=== PATIENT | male | born 1965 | race Caucasian/White ===

== ENCOUNTER 2021-12-06 03:19 | Inpatient (IN) | payer OTHER, SELFPAY ==
[2021-12-06] VITALS (10 sets, daily range): BP systolic 106–138; BP diastolic 56–87; PULSE 74–88; RESP 16–22; TEMP 36.5–36.8; O2SAT 97–100; BMI 45.0; BMI 45.4
--- NOTE | 2021-12-06 03:33 | ED_ITS ---
HPI - General Adult General Time Seen by Provider: 03:34 Date Seen: 12/06/21 Chief complaint: Post Op Complication Stated complaint: post op pain,constipation Time Seen by Provider: 12/06/21 03:33 Source: patient, EMS, RN notes reviewed and old records reviewed Mode of arrival: EMS Limitations: no limitations History of Present Illness HPI narrative: Patient is a very pleasant 56-year-old gentleman with a history of bipolar disorder, morbid obesity, postop day 2. Left hip replacement who comes to the emergency room via EMS from his skilled nursing in [place]. Patient notes that he had his hip replaced on December 04. He was discharged yesterday December 05 to his skilled nursing. He notes that yesterday before midnight he developed a fever up to 101.5. He states that he put ice on his head and has brought his fever down. He notes that he is mildly nauseated and has not been able to have a bowel movement in 3 days. Also notes what he thought was some blood in his urinary stream earlier this evening. He denies dysuria or hematuria. Was intubated in notes that he has a mild cough but it is not productive. He notes that he cannot take a lot of narcotics as he gets itchy especially from morphine but he has been on narcotics at home. He is requesting pain medication and it would be happy to accept Toradol. Additional complaints include feeling like he is manic. He states he has not slept for 3 days. He is adamant that he has never been violent but feels like he is starting to ?ramp up?. He states that his family independence case manager is trying to find him a crisis bed tomorrow. He also notes that he has had a problem with a sodium but is unable to elaborate. He is requesting water. Patient currently resides in a skilled nursing in [place]. shelter staff note that he is not doing things for himself like he is supposed to. Patient is receptive to going to shelter on a temporary basis. Related Data Home Medications Medication Instructions Recorded Confirmed acetaminophen 325 mg tablet 325 mg PO TID 12/06/21 12/06/21 aripiprazole 15 mg tablet 15 mg PO DAILY 12/06/21 12/06/21 ascorbic acid (vitamin C) 1,000 mg 1 g PO DAILY 12/06/21 12/06/21 capsule aspirin 325 mg tablet,delayed 325 mg PO DAILY 12/06/21 12/06/21 release buspirone 5 mg tablet 5 mg PO TID 12/06/21 12/06/21 carbamazepine 200 mg tablet 200 mg PO BID 12/06/21 12/06/21 celecoxib 200 mg capsule 200 mg PO DAILY 12/06/21 cholecalciferol (vitamin D3) 125 125 mcg PO DAILY 12/06/21 12/06/21 mcg (5,000 unit) capsule docusate sodium 100 mg capsule 100 mg PO BID 12/06/21 12/06/21 (Col-Rite) famotidine 20 mg tablet 20 mg PO Q12H 12/06/21 12/06/21 metoprolol tartrate 50 mg tablet 50 mg PO BID 12/06/21 12/06/21 multivitamin with iron-mineral 1 tab PO DAILY 12/06/21 12/06/21 olanzapine 10 mg tablet mg 12/06/21 olanzapine 5 mg disintegrating 5 mg PO HS 12/06/21 12/06/21 tablet omega 1-jfm-dwu-fish oil 1,200 mg cap PO DAILY 12/06/21 (144 mg-216 mg) capsule (Fish Oil) omeprazole 20 mg capsule,delayed 20 mg PO DAILY 12/06/21 12/06/21 release oxycodone 5 mg tablet 5 mg PO Q4H PRN 12/06/21 12/06/21 polyethylene glycol 3350 17 17 g PO DAILY 12/06/21 12/06/21 gram/dose oral powder psyllium husk (with sugar) 3 1 tbsp PO DAILY 12/06/21 12/06/21 gram/7 gram oral powder (Metamucil (with sugar)) sennosides 8.6 mg-docusate sodium 1 tab-cap PO BID 12/06/21 12/06/21 50 mg tablet (Senokot-S) tamsulosin 0.4 mg capsule 0.4 mg PO DAILY 12/06/21 12/06/21 Allergies Allergy/AdvReac Type Severity Reaction Status Date / Time lithium Allergy Intermediate Palpitation Verified 12/06/21 04:46 s divalproex sodium AdvReac Intermediate Weight Verified 12/06/21 04:46 [From Depakote] Gain and Excessive Sedation valproic acid AdvReac Intermediate Weight Gain Verified 12/06/21 04:47 morphine AdvReac Mild Itching Verified 12/06/21 04:46 Review of Systems Status of ROS: Reports: 10 or more systems reviewed and unremarkable except as noted in History and below Const: Reports: fever (101.5) and chills Eyes: Denies: change in vision ENMT: Denies: throat pain Cardio: Denies: chest pain, palpitations or shortness of breath with exertion Resp: Reports: cough (Mild and rare); Denies: shortness of breath GI: Reports: abdominal pain, nausea and constipation; Denies: vomiting : Reports: blood in urine (1 occurrence earlier this evening); Denies: painful urination or urinary frequency Musculo: Denies: back pain Integ/Breast: Denies: rash Neuro: Denies: headache Psych: Reports: other (Unable to sleep. Feels like he is manic); Denies: auditory hallucinations or tactile hallucinations Endo: Denies: excessive urination Adiel/Lymph: Denies: easy bruising PFSH PFSH Medical History Anxiety Arthritis of left knee Bipolar affective disorder, currently manic, mild Hip pain, left Internal hemorrhoid, bleeding Molly Obesity, morbid, BMI 50 or higher PAC (premature atrial contraction) Primary hypertension Severe manic bipolar 1 disorder with psychotic behavior Surgical History H/O arthroscopy of left knee H/O arthroscopy of right knee History of tonsillectomy Hx laparoscopic cholecystectomy Status post total hip replacement, left Social History Smoking Status: Never smoker How often do you have a drink containing alcohol: never How often do you have six or more drinks on one occasion: Never AUDIT-C Alcohol total score: 0 Non-prescribed substance use: denies use Exam Const: Vital Signs, click to edit/add: Vital Signs - 24 hr 12/06/21 03:38 12/06/21 04:01 12/06/21 04:59 Temperature 98.2 F 98.2 F 98.0 F Pulse Rate [Right Pulse Oximeter] 79 74 Respiratory Rate 16 16 Blood Pressure [Le ft Upper Arm] 106/59 L 110/70 Pulse Oximetry 97 97 Oxygen Delivery Me thod Room Air Room Air Documenting provider has reviewed patient's vital signs: yes Common normals: no apparent distress and oriented x3 Exam limitations: physical limitations (Morbid obesity) General appearance: cooperative, comfortable and well kempt HENMT: Common normals: normocephalic and external nose normal Head and scalp: normocephalic Face and sinus: normal facial exam Nose: external nose normal Eye: Common normals: PERRL General eye: normal appearance of both eyes Pupil: PERRL Neck & C-Spine: Common normals: full ROM Resp: Common normals: normal respiratory effort, no use of accessory muscles and clear to auscultation bilaterally Effort & inspection: able to speak in complete sentences Auscultation: clear to auscultation bilaterally Cardio: Common normals: regular rate and regular rhythm Rate: regular rate Rhythm: regular rhythm GI: Common normals: soft to palpation Palpation: soft and tender (Mild and distractible) : Common normals: no CVA tenderness Bladder/kidney exam: no CVA tenderness Back & Pelvis: Common normals: no CVA tenderness Extremity: Other: Left hip with dressing intact. Some bruising noted of along the posterior aspect of surgical wound. Vac in place. Neuro: Common normals: oriented x3 Other: No pressured speech, hypersexual speech or unusual behavior. Good eye contact. Psych: Common normals: mental status grossly normal, thought process normal and cooperative Appearance: well kempt Thought process: normal thought process Course Reevaluation(s) Reevaluation #1: At this time patient presents with multiple complaints. First he is 2 days status post left hip replacement. He describes a fever of 1015. No fever here tonight. Chest x-ray without evidence of pneumonia, urinalysis is pending white count is 4.68. Blood cultures were drawn. Second, patient has complaints of manic type behavior. Will administer Zyprexa 5 mg in addition to his previous tablet. Third, patient notes constipation inability to stool. Currently on MiraLax. Laboratory values are currently pending. Vital Signs Vital signs: Initial Vital Signs Temperature 98.2 F 12/06/21 03:38 Temperature Source Temporal Artery Scan 12/06/21 03:38 Pulse Rate 79 12/06/21 03:38 Pulse Rhythm 12/06/21 03:38 Respiratory Rate 16 12/06/21 03:38 Blood Pressure 106/59 L 12/06/21 03:38 Blood Pressure Mean 74 12/06/21 03:38 Blood Pressure Position Sitting 12/06/21 03:38 Pulse Oximetry 97 12/06/21 03:38 Oxygen Delivery Method 12/06/21 03:38 Vital Signs Temperature 98.2 F 12/06/21 03:38 Pulse Rate 79 12/06/21 03:38 Respiratory Rate 16 12/06/21 03:38 Blood Pressure 106/59 L 12/06/21 03:38 Pulse Oximetry 97 12/06/21 03:38 Oxygen Delivery Method 12/06/21 03:38 Temperature 98.0 F 12/06/21 04:59 Pulse Rate 74 12/06/21 04:59 Respiratory Rate 16 12/06/21 04:59 Blood Pressure 110/70 12/06/21 04:59 Pulse Oximetry 97 12/06/21 04:59 Oxygen Delivery Method 12/06/21 04:59 Medical Decision Making MDM Narrative Medical decision making narrative: 1. Hyponatremia-patient has of sodium of 122. This is not listed on his records from [facility]. It does appear that his final sodium prior to discharge is 125. Patient is given 1 L of normal saline at this time. Will need to limit free water intake. 2. Postop day 2. Left hip surgery-patient received Toradol and seems to have had pain relief with this. 3. Fever of unknown origin-fever free here and white count reassuring. However, blood cultures were accomplished. Wound itself is not excessively erythematous or warm to the touch. 4. Constipation-patient has had no stool for 3 days. 5. Disposition-admit to the floor under the care of [facility] hospitalist. Medical Records Medical records reviewed: Yes I reviewed the patient's medical records Lab Data Lab results reviewed: Yes I reviewed the patient's lab results Labs: Lab Results 12/06/21 12/06/21 12/06/21 Range/Units 03:40 03:40 03:40 WBC 4.68 (4.50-11.00) K/uL RBC 2.77 L (4.30-5.90) m/uL Hgb 8.7 L (13.5-17.5) gm/dL Hct 25.0 L (37.0-53.0) % MCV 90 (80-100) fL MCH 31 (26-34) pg MCHC 35 (32-36) gm/dL RDW Coeff of Mamadou 12.7 (11.5-15.5) % Plt Count 128 L (140-440) K/uL Neut % (Auto) 67.8 (42.0-72.0) % Lymph % (Auto) 18.8 L (20-44) % [place] % (Auto) 10.9 (0.0-11.0) % Eos % (Auto) 1.9 (0.0-7.0) % Baso % (Auto) 0.4 (0.0-3.0) % Neut # (Auto) 3.17 (1.7-7.0) K/uL Lymph # (Auto) 0.90 (0.90-2.90) K/uL [place] # (Auto) 0.50 (0.00-0.90) K/UL Eos # (Auto) 0.09 (0.00-0.50) K/uL Baso # (Auto) 0.02 (0.00-0.30) K/uL Abs Immat Gran (auto) 0.01 (0.00-0.30) K/uL Sodium 122 L* (135-149) mmol/L Potassium 4.1 (3.6-5.1) mmol/L Chloride 90 L (96-114) mmol/L Carbon Dioxide 27 (20-32) mmol/L BUN 15 (7-30) mg/dL Creatinine 0.7 (0.5-1.5) mg/dL Estimated Creat Clear 112.79 Estimated GFR 110 ml/min Glucose 107 (60-115) mg/dL Lactate 0.8 (0.5-1.9) mmol/L Calcium 7.7 L (8.4-10.6) mg/dL Magnesium 1.8 (1.5-2.6) mg/dL Total Bilirubin 0.6 (0.1-1.5) mg/dL AST 58 H (12-35) U/L ALT 11 (4-50) U/L Alkaline Phosphatase 51 (40-150) U/L C-Reactive Protein 12.9 H (0.5-1.0) mg/dL Total Protein 5.4 L (6.0-8.3) g/dL Albumin 3.1 L (3.3-5.0) g/dL SARS-CoV-2 (PCR) (Negative) Influenza Type A (PCR) (Negative) Influenza Type B (PCR) (Negative) 12/06/21 Range/Units 03:51 WBC (4.50-11.00) K/uL RBC (4.30-5.90) m/uL Hgb (13.5-17.5) gm/dL Hct (37.0-53.0) % MCV (80-100) fL MCH (26-34) pg MCHC (32-36) gm/dL RDW Coeff of Mamadou (11.5-15.5) % Plt Count (140-440) K/uL Neut % (Auto) (42.0-72.0) % Lymph % (Auto) (20-44) % [place] % (Auto) (0.0-11.0) % Eos % (Auto) (0.0-7.0) % Baso % (Auto) (0.0-3.0) % Neut # (Auto) (1.7-7.0) K/uL Lymph # (Auto) (0.90-2.90) K/uL [place] # (Auto) (0.00-0.90) K/UL Eos # (Auto) (0.00-0.50) K/uL Baso # (Auto) (0.00-0.30) K/uL Abs Immat Gran (auto) (0.00-0.30) K/uL Sodium (135-149) mmol/L Potassium (3.6-5.1) mmol/L Chloride (96-114) mmol/L Carbon Dioxide (20-32) mmol/L BUN (7-30) mg/dL Creatinine (0.5-1.5) mg/dL Estimated Creat Clear Estimated GFR ml/min Glucose (60-115) mg/dL Lactate (0.5-1.9) mmol/L Calcium (8.4-10.6) mg/dL Magnesium (1.5-2.6) mg/dL Total Bilirubin (0.1-1.5) mg/dL AST (12-35) U/L ALT (4-50) U/L Alkaline Phosphatase (40-150) U/L C-Reactive Protein (0.5-1.0) mg/dL Total Protein (6.0-8.3) g/dL Albumin (3.3-5.0) g/dL SARS-CoV-2 (PCR) Negative SARS-CoV-2 (Negative) Influenza Type A (PCR) Negative PCR FLU A (Negative) Influenza Type B (PCR) Negative PCR FLU B (Negative) Imaging Data Chest x-ray: Attestation: I have reviewed the pertinent imaging results. My impression: No evidence of infiltrate Radiologist's impression: No acute findings Abdominal x-ray: Attestation: I have reviewed the pertinent imaging results. My impression: There does appear to be a large amount of stool on x-ray. However, I do not see any evidence of obstructions Radiologist's impression: Concurs
--- NOTE | 2021-12-06 03:43 | CRLHL7_ITS ---
For Patients: As a result of the Cures Act, medical imaging exams and procedure reports are released immediately into your electronic medical record. You may view this report before your referring provider. If you have questions, please contact your health care provider. Indication: No stools for 3 days following surgery Technique: KUB Comparison: No comparison Findings: Left hip arthroplasty. Large amount stool within the colon. No free-air. Bowel gas pattern appears nonobstructive. Dictated by Malissa Myers MD @ 12/06/2021 5:24:30 AM (Electronically Signed)
--- NOTE | 2021-12-06 03:43 | CRLHL7_ITS ---
For Patients: As a result of the Century Cures Act, medical imaging exams and procedure reports are released immediately into your electronic medical record. You may view this report before your referring provider. If you have questions, please contact your health care provider. INDICATION: Cough TECHNIQUE: Single view chest. FINDINGS: The lungs are clear. The heart, mediastinum and pulmonary vessels are of normal size. There is no evidence of pleural disease. Lung apices are not imaged. IMPRESSION: Negative chest. Dictated by Malissa Myers MD @ 12/06/2021 5:22:11 AM (Electronically Signed)
[2021-12-06 03:54] LABS: Lactate* 0.8 mmol/L (0.5-1.9)
[2021-12-06 03:56] LABS: Basophils Absolute Auto 0.02 K/uL (0.00-0.30); Basophils Percent Auto 0.4 % (0.0-3.0); Eosinophils Absolute Auto 0.09 K/uL (0.00-0.50); Eosinophils Percent Auto 1.9 % (0.0-7.0); Hemoglobin* 8.7 gm/dL (13.5-17.5); Immature Granulocytes Abs Auto 0.01 K/uL (0.00-0.30); Lymphocytes Percent Auto 18.8 % (20-44); Mean Corpuscular HGB Conc 35 gm/dL (32-36); Mean Corpuscular Hemoglobin 31 pg (26-34); Mean Corpuscular Volume 90 fL (80-100); Monocytes Percent Auto 10.9 % (0.0-11.0); Neutrophils Absolute Auto 3.17 K/uL (1.7-7.0); Neutrophils Percent Auto 67.8 % (42.0-72.0); Platelet Count* 128 K/uL (140-440); RDW Coefficient of Variation % 12.7 % (11.5-15.5); Red Blood Count 2.77 m/uL (4.30-5.90); White Blood Count* 4.68 K/uL (4.50-11.00)
[2021-12-06] MEDS: KETOROLAC 15 MG/ML inj IVP (04:01)
[2021-12-06 04:02] LABS: Slide Review Reflex No
[2021-12-06 04:09] LABS: Chloride* 90 mmol/L (96-114)
[2021-12-06 04:10] LABS: Albumin* 3.1 g/dL (3.3-5.0)
[2021-12-06 04:11] LABS: Potassium* 4.1 mmol/L (3.6-5.1)
[2021-12-06 04:13] LABS: Alanine Aminotransferase* 11 U/L (4-50); Alkaline Phosphatase* 51 U/L (40-150); Aspartate Amino Transferase* 58 U/L (12-35); Bilirubin Total* 0.6 mg/dL (0.1-1.5); Carbon Dioxide* 27 mmol/L (20-32); Creatinine* 0.7 mg/dL (0.5-1.5); Est. Creatinine Clearance* 112.79; Estimated Glomerular Filt Rate 110 ml/min; Total Protein* 5.4 g/dL (6.0-8.3)
[2021-12-06 04:14] LABS: Blood Urea Nitrogen* 15 mg/dL (7-30); Calcium* 7.7 mg/dL (8.4-10.6); Glucose* 107 mg/dL (60-115); Magnesium* 1.8 mg/dL (1.5-2.6)
[2021-12-06 04:16] LABS: Sodium* 122 mmol/L (135-149)
--- NOTE | 2021-12-06 04:17 | ED.NURSE ---
critical sodium 122, MD Lakhani updated.
[2021-12-06] MEDS: 0.9 % SODIUM CHLORIDE 1000 ml 1,000 ML IV (04:22)
[2021-12-06 04:34] LABS: C Reactive Protein* 12.9 mg/dL (0.5-1.0)
[2021-12-06 04:35] LABS: PCR FLU A Negative PCR FLU A (Negative); PCR FLU B Negative PCR FLU B (Negative)
[2021-12-06 04:37] LABS: SARS PCR* Negative SARS-CoV-2 (Negative)
--- NOTE | 2021-12-06 05:49 | ED.NURSE ---
report to RN on med surg, pt to go to [facility].
[2021-12-06] MEDS: OLANZapine 5 MG TAB.RAPDIS PO ×2 (06:50→20:31)
--- NOTE | 2021-12-06 07:05 | P.CCN_ITS ---
Assessment and Plan Assessment and plan (1) Status post left hip replacement: Status: Acute (2) Hyponatremia: Status: Acute (3) Constipation: Status: Acute (4) Primary hypertension: Status: Acute (5) Bipolar affective disorder, currently manic, mild: Status: Acute Plan [facility] Consultation 56 yo M with bipolar who resides in detention in [place]. He is s/p L hip replacement on Dec 04 at [facility] and was released Dec 05 with self cares back to detention with a wound vac in place for 10 days . DC back to his detention but has not been able to do normal self cares since then and felt unwell with complaints of feeling manic and sleeping for 3 days, fever today to 101.5, hematuria, constipation and cough. Lab notable for Na of 122, cr 0.7, Ca low 7.7. CRP 12.9, covid negative. WBC normal, hgb 8.7 (last one 9.6). He reports he has had sodium trouble in the past as well. He is concerned with timing of his medication maintaining accuracy, hip ice and pain control as well as remedy for his constipation since he does have left sided abdominal discomfort with it. Follows with Dr. Elkins at [facility]. PMH: bipolar disorder, previously on lithium, HLD, HTN, obesity, remote L3 compression fracture. s/p cholecystectomy, hip replacement 12/04/2021. Past family History: stroke Pertinent Social History: no current tobacco or alcohol. Resides as detention and has personal nurse as well as a licensed social worker he follows closely with Exam (performed via interactive video with assistance of bedside nurse): General: alert, cooperative, no acute distress HEENT: oral mucosa pink and moist without erythema Lungs: clear to auscultation bilaterally without crackle or wheeze CV: regular rate and rhythm without loud murmur rub or gallop MSK: left hip with wound vac in place. Neuro: alert, oriented x 3. facial muscles grossly intact Assessment and Plan: 56-year-old male was at the detention with bipolar. He is only a few days. Left hip replacement. Presents with hyponatremia chronic constipation, insomnia and hip pain. Hyponatremia ? follow up Na in 6 hrs is ordered, received NS in the ER. It was suspected may be related to polydipsia vs SIADH. Will get the 6 hr lab prior to deciding on additional fluids vs fluid restriction. . Will need records in regard to baseline Na (recently reported to be 125). Recent left Hip replacement - PT, OT and temp SNF placement. Oxycodone 2.5mg is what he tolerates and that is ordered. SW consult, he is agreeable to SNF stay. Fever ? follow BC and wound. No evidence pneumonia. Obtain UA. Bipolar with possible hypomania ? consider increasing home xyprexa. Have ordered PRN Ativan at night for sleep Constipation ? resume bowel regimen when meds reconciled pharmacy will need to review and correct medications, anticipate will resume home meds. Have ordered one time aspirin, Tylenol and miralax for now but will need AM meds when able Thank you for including [facility] in the patients care. This service is available for further assistance as requested by your care team by calling [phone].
--- NOTE | 2021-12-06 07:58 | PC.NURSE ---
END OF SHIFT NOTE: HYPONATREMIC @122. 2DAY POST-OP LEFT HIP REPLACEMENT. PT C/O CONSTIPATION. PT BIPOLAR AND ANXIOUS WITH EXCESSIVE RAPID SPEECH. PT STATES THE USE OF WALKER AT [facility]. DENIES CP, SOB, N/V. PT RATES LEFT HIP PAIN 11/13. VSS ON RA; AFEBRILE. LSCTA. WOUND VAC TO LEFT HIP. PT PIVOT TRANSFERRED TO [facility].
[2021-12-06] MEDS: polyethylene glycoL 3350 17 GM PACK PO (09:00)
--- NOTE | 2021-12-06 09:03 | P.IMHP_ITS ---
Hospitalist- H&P: HPI History of Present Illness Time Seen by Provider: 09:30 Date Seen: 12/06/21 Chief complaint: post op pain,constipation Narrative: Aguila Mcclain is a 56 year old male with history of bipolar disorder and anxiety who underwent a left total hip arthroplasty at [facility] on 12/04/2021, was sent home the next day, and developed fever, insomnia, racing thoughts, and worsening left hip pain. He tells me that he is very regimented about his medications and daily routine which help him to stay mentally healthy. This surgery was disruptive to that and he did not get all of his usual medications at the right times. As a result he tells me that he has had recent thoughts since after surgery and has not slept at all for 4 nights. He also developed a fever to 101.5? F last night. These concerns brought him to the emergency department from the longterm where he lives. He felt that his left hip felt hot last night also and he has been trying to ice it. He says he has not had a bowel movement in 4 days. He also notes that he had very low urine output after surgery, and it is just now starting to get back to normal. He has a wound VAC in place on his left hip from an anterior approach. He tells me that he did not know that he was going to have a wound VAC before surgery, but woke up with it. He does not recall being told the reason why he has a wound VAC instead of a closed wound, but notes that they did give him instructions about it and he is supposed to have it for about 10 days. He was surprised to have of wound VAC because his mother and a friend also had there hips placed at that same facility and did not have wound vacs afterwards. He does note that he has a history of being more obese than he is even currently and lost about 125 lb over the last year in order to be able to go through this surgery. With regards to the racing thoughts, he tells me that he gets this sometimes when he gets off his usual schedule or has anxiety about something stressful. For the most part he notes that his bipolar has been well controlled. He was hoping to contact his psychiatrist's office today to get some advice about the racing thoughts and insomnia. He is agreeable to do a DEC assessment here as well. He made it a point to tell me that he has no suicidal thoughts or thoughts of self-harm and has never been violent. Review of Systems Status of ROS: Reports: 10 or more systems reviewed and unremarkable except as noted in History and below [facility] Medical History (Updated 12/06/21 @ 12:18 by Sigrid Garcia MD) Anxiety Arthritis of left knee Bipolar affective disorder, currently manic, mild Chronic back pain Gout Hip pain, left Internal hemorrhoid, bleeding Molly Obesity, morbid, BMI 50 or higher PAC (premature atrial contraction) Primary hypertension Severe manic bipolar 1 disorder with psychotic behavior Surgical History H/O arthroscopy of left knee H/O arthroscopy of right knee History of tonsillectomy Hx laparoscopic cholecystectomy Status post total hip replacement, left Social History (Updated 12/06/21 @ 12:04 by Sigrid Garcia MD) Narrative: Has been living at a longterm in [place]. He is a lifelong nonsmoker, denies alcohol or recreational drug use. Wishes to be a full code. Highest level of school completed/degree received: high school graduate Smoking Status: Never smoker How often do you have a drink containing alcohol: never How often do you have six or more drinks on one occasion: Never AUDIT-C Alcohol total score: 0 Non-prescribed substance use: denies use Caffeine: No service: No Meds Home Medications and Allergies Home Medications Medication Instructions Recorded Confirmed Type acetaminophen 325 mg tablet 975 mg PO TID 12/06/21 12/06/21 History aripiprazole 15 mg tablet 15 mg PO DAILY 12/06/21 12/06/21 History ascorbic acid (vitamin C) 1,000 mg 1 g PO DAILY 12/06/21 12/06/21 History capsule aspirin 325 mg tablet,delayed 325 mg PO DAILY 12/06/21 12/06/21 History release buspirone 5 mg tablet 5 mg PO TID 12/06/21 12/06/21 History carbamazepine 200 mg tablet 400 mg PO BID 12/06/21 12/06/21 History celecoxib 200 mg capsule 200 mg PO DAILY 12/06/21 12/06/21 History cholecalciferol (vitamin D3) 125 125 mcg PO DAILY 12/06/21 12/06/21 History mcg (5,000 unit) capsule docusate sodium 100 mg capsule 100 mg PO BID 12/06/21 12/06/21 History (Col-Rite) famotidine 20 mg tablet 20 mg PO Q12H 12/06/21 12/06/21 History metoprolol tartrate 50 mg tablet 50 mg PO BID 12/06/21 12/06/21 History multivitamin with iron-mineral 1 tab PO DAILY 12/06/21 12/06/21 History olanzapine 5 mg disintegrating 5 mg PO HS 12/06/21 12/06/21 History tablet omega 3-mem-pde-fish oil 1,200 mg 1 cap PO DAILY 12/06/21 12/06/21 History (144 mg-216 mg) capsule (Fish Oil) omeprazole 20 mg capsule,delayed 20 mg PO DAILY 12/06/21 12/06/21 History release oxycodone 5 mg tablet 5 mg PO Q4H PRN 12/06/21 12/06/21 History polyethylene glycol 3350 17 17 g PO DAILY 12/06/21 12/06/21 History gram/dose oral powder psyllium husk (with sugar) 3 1 tbsp PO DAILY 12/06/21 12/06/21 History gram/7 gram oral powder (Metamucil (with sugar)) sennosides 8.6 mg-docusate sodium 1 tab-cap PO BID 12/06/21 12/06/21 History 50 mg tablet (Senokot-S) tamsulosin 0.4 mg capsule 0.4 mg PO DAILY 12/06/21 12/06/21 History Allergies Allergy/AdvReac Type Severity Reaction Status Date / Time lithium Allergy Intermediate Palpitation Verified 12/06/21 04:46 s divalproex sodium AdvReac Intermediate Weight Verified 12/06/21 04:46 [From Depakote] Gain and Excessive Sedation valproic acid AdvReac Intermediate Weight Gain Verified 12/06/21 04:47 morphine AdvReac Mild Itching Verified 12/06/21 04:46 Exam Narrative: Exam Narrative: General: No acute distress. Awake alert oriented x3. Speech is rapid, but not pressured. Thoughts are organized. HEENT: Normocephalic atraumatic, pupils equally round and reactive to light and accommodation. Oropharynx clear. Mucous membranes are moist. No cervical lymphadenopathy, thyromegaly or carotid bruits. No JVD. Cardiovascular: Regular rate and rhythm. No murmurs, gallops, or rubs. Chest: No increased work of breathing. Clear to auscultation bilaterally. No crackles or wheezes. Abdomen: Morbidly obese. Bowel sounds present. Soft, nondistended, nontender. No hepatosplenomegaly or masses. Extremities: Trace pedal edema, no cyanosis or clubbing. Left hip has a wound VAC in place, wound edges are without erythema or tenderness. Skin: No jaundice, no pallor, candidiasis and excoriations in skin folds of pannus and groin. Neuro: Grossly intact. No focal deficits. Const: Vital Signs, click to edit/add: Vital Signs - 24 hr 12/06/21 03:38 12/06/21 04:01 12/06/21 04:59 Temperature 98.2 F 98.2 F 98.0 F Pulse Rate [Left B rachial] Pulse Rate [Pulse Oximeter] Pulse Rate [Right Pulse Oximeter] 79 74 Respiratory Rate 16 16 Blood Pressure [Le ft Arm] Blood Pressure [Le ft Upper Arm] 106/59 L 110/70 Pulse Oximetry 97 97 Oxygen Delivery Me thod Room Air Room Air 12/06/21 07:31 12/06/21 07:53 Temperature 98.2 F 98.1 F Pulse Rate [Left B rachial] 88 Pulse Rate [Pulse Oximeter] 85 Pulse Rate [Right Pulse Oximeter] Respiratory Rate 20 20 Blood Pressure [Le ft Arm] 125/87 138/68 Blood Pressure [Le ft Upper Arm] Pulse Oximetry 97 100 Oxygen Delivery Me thod Room Air Room Air Hospitalist - H&P: Result Labs Labs: Short CBC 12/06/21 Range/Units 03:40 WBC 4.68 (4.50-11.00) K/uL Hgb 8.7 L (13.5-17.5) gm/dL Hct 25.0 L (37.0-53.0) % Plt Count 128 L (140-440) K/uL BMP 12/06/21 03:40 Sodium 122 L* Potassium 4.1 Chloride 90 L Carbon Dioxide 27 BUN 15 Creatinine 0.7 Glucose 107 Calcium 7.7 L Liver Function 12/06/21 Range/Units 03:40 Total Bilirubin 0.6 (0.1-1.5) mg/dL AST 58 H (12-35) U/L ALT 11 (4-50) U/L Alkaline Phosphatase 51 (40-150) U/L Albumin 3.1 L (3.3-5.0) g/dL Imaging Abdominal x-ray: Attestation: I have reviewed the pertinent imaging results. Radiologist's impression: Ordering Physician: Janna Lakhani MD Date of Service: 12/06/21 Procedure(s): XR abdomen 1V Accession Number(s): [id number] cc: Janna Lakhani MD; John Sellers MD~ For Patients: As a result of the Cures Act, medical imaging exams and procedure reports are released immediately into your electronic medical record. You may view this report before your referring provider. If you have questions, please contact your health care provider. Indication: No stools for 3 days following surgery Technique: KUB Comparison: No comparison Findings: Left hip arthroplasty. Large amount stool within the colon. No free-air. Bowel gas pattern appears nonobstructive. Dictated by Malissa Myers MD @ 12/06/2021 5:24:30 AM (Electronically Signed) Chest x-ray: Radiologist's impression: Ordering Physician: Janna Lakhani MD Date of Service: 12/06/21 Procedure(s): XR chest 1V portable Accession Number(s): [id number] cc: Janna Lakhani MD; John Sellers MD~ For Patients: As a result of the Cures Act, medical imaging exams and procedure reports are released immediately into your electronic medical record. You may view this report before your referring provider. If you have questions, please contact your health care provider. INDICATION: Cough TECHNIQUE: Single view chest. FINDINGS: The lungs are clear. The heart, mediastinum and pulmonary vessels are of normal size. There is no evidence of pleural disease. Lung apices are not imaged. IMPRESSION: Negative chest. Dictated by Malissa Myers MD @ 12/06/2021 5:22:11 AM (Electronically Signed) Assessment and Plan Assessment and plan (1) Hyponatremia: Problem comment: 08/31/21 Na 133 09/02/21 Na 130 09/04/21 Na 128 12/04/21 Na 125 12/05/21 Na 122 Status: Acute Assessment and Plan: Cause is unclear, but I suspect it is multifactorial including psychogenic polydipsia, use of MiraLax daily, chronic psychiatric medications. I do not think he is symptomatic with this. I think his current molly is from bipolar destabilization secondary to surgery and disruption of his routine. (2) Postoperative fever: Problem comment: 101.5 POD #1 evening (12/05/21) Status: Acute Assessment and Plan: Chest x-ray is unremarkable. He has had no urinary symptoms, UA is pending. CRP is elevated, however he recently had surgery. I am finding no skin findings to indicate cellulitis. There are no other concerning findings on exam to indicate acute infection. His left hip is painful, however he just had surgery and is taking lower dose of oxycodone due to side effects. I have spoken with Dee Dee from Ortho and asked them to consult for left hip pain with a fever and elevated CRP postoperatively, also complicated by a wound VAC. (3) Status post left hip replacement: Problem comment: 12/04/21 at [facility], Dr. Hudson Vences Status: Acute Assessment and Plan: Consult ortho as above. I have also asked PT and OT to see this patient. Social work will also be involved for discharge planning as this patient will likely need short-term rehab. (4) Bipolar affective disorder, currently manic, mild: Problem comment: racing thoughts, speech, no sleep x 4 nights Status: Acute Assessment and Plan: Appears to be in a manic episode at present. Obtain DEC assessment. Continue usual home medications. (5) Insomnia due to mental disorder: Problem comment: bipolar molly Status: Acute (6) Anxiety: Status: Acute Assessment and Plan: Continue usual home medications. (7) Constipation: Problem comment: No BM since surgery 12/04/21 Status: Acute Assessment and Plan: Increase senna, change MiraLax to p.r.n. due to possibly contributing to hyponatremia. I favor increasing senna for ongoing constipation rather than daily MiraLax. (8) Primary hypertension: Status: Chronic Assessment and Plan: Well controlled. Continue usual home medications. (9) Thrombocytopenia: Problem comment: 12/05/21 Plts 175, 12/06/21 plts 128 Status: Acute Assessment and Plan: May be secondary to recent stress of surgery versus infectious cause. Recheck in the morning. If platelets are lower than 80, will need to hold aspirin. (10) Normocytic anemia: Problem comment: Suspect due to acute blood loss from recent left hip surgery on 12/04/21, 08/28/21 Hgb 14, 12/05/21 Hgb 9.6 Status: Acute Assessment and Plan: I am not seeing any signs of active bleeding. Ortho has been consulted. Monitor daily. If he continues to trend downward, may need to stop aspirin and have further workup. (11) Candidiasis: Problem comment: Pannus and groin Status: Acute Assessment and Plan: Start nystatin powder. Plan VTE prophylaxis for postop left hip anterior approach. Continue daily aspirin dosing as prescribed by patient's orthopedic surgeon.
[2021-12-06] MEDS: ACETAMINOPHEN 500 MG TABLET 1000 MG PO (09:05)
[2021-12-06] MEDS: ASPIRIN EC 325 MG TABLET PO (09:06)
[2021-12-06] MEDS: OXYCODONE 5 MG TABLET 2.5 MG PO (09:06)
[2021-12-06 10:00] LABS: Sodium* 124 mmol/L (135-149)
--- NOTE | 2021-12-06 10:04 | PC.NURSE ---
Critical value reported by lab - Sodium 124, Dr. Garcia notified.
[2021-12-06 10:49] LABS: Amphetamine Screen Urine Negative (Negative); Barbiturate Screen Urine Negative (Negative); Benzodiazepines Screen Urine Negative (Negative); Cannabinoid Screen Urine Negative (Negative); Cocaine Screen Urine Negative (Negative); Methadone Screen Urine Negative (Negative); Methamphetamines Screen Urine Negative (Negative); Opiate Screen Urine Negative (Negative); Oxycodone Screen Urine Negative (Negative); Phencyclidine Screen Urine Negative (Negative); Tricyclic Antidepressant Urine Negative (Negative)
[2021-12-06] MEDS: TAMSULOSIN HCL 0.4 MG CAPSULE PO (12:58)
[2021-12-06] MEDS: OMEPRAZOLE 20 MG CAPSULE DR PO (12:59)
[2021-12-06] MEDS: BUSPIRONE 10 MG TABLET 5 MG PO ×3 (12:59→20:30)
[2021-12-06] MEDS: METOPROLOL TARTRATE 50 MG TABLET PO ×2 (13:00→20:30)
[2021-12-06] MEDS: SENNOSIDES/DOCUSATE TABLET 2 TAB PO (13:00)
[2021-12-06] MEDS: CELECOXIB 200 MG CAPSULE PO (13:01)
[2021-12-06] MEDS: ASCORBIC ACID 500 MG TABLET 1000 MG PO (13:01)
[2021-12-06] MEDS: FAMOTIDINE 20 MG TABLET PO ×2 (13:04→22:49)
[2021-12-06] MEDS: carBAMazepine 200 MG TABLET 400 MG PO ×2 (13:05→20:31)
[2021-12-06] MEDS: ARIPiprazole 10 MG TABLET 15 MG PO (13:05)
[2021-12-06] MEDS: DOCUSATE SODIUM 100 MG CAPSULE PO (13:07)
[2021-12-06 13:13] LABS: Appearance Urine Clear (Clear); Bilirubin Urine Negative (Negative); Blood Urine Trace-intact (Negative); Color Urine Yellow (Yellow); Glucose Urine Negative (Negative); Ketones Urine Negative (Negative); Leukocyte Esterase Urine Negative (Negative); Nitrite Urine Negative (Negative); Protein Urine Negative (Negative); Specific Gravity Urine 1.015 (1.000-1.030); Urobilinogen Urine 0.2 (0.2-1.0); pH Urine 6.5 (5.0-8.5)
[2021-12-06 13:22] LABS: RBC Urine 0-2 (0-2); WBC Urine 0-2 (0-5)
[2021-12-06] MEDS: OXYCODONE 5 MG TABLET PO ×2 (15:08→20:39)
[2021-12-06] MEDS: MULTIVITAMIN/MINERALS 1 TABLET 1 TAB PO (15:09)
[2021-12-06] MEDS: ACETAMINOPHEN 325 MG TABLET 975 MG PO ×2 (15:09→20:30)
--- NOTE | 2021-12-06 15:28 | P.ORCN_ITS ---
History of Present Illness HPI Time Seen by Provider: 02:30 Date Seen: 12/06/21 Consult date: 12/06/21 Requesting physician: Sigrid Garcia Chief complaint: post op pain,constipation Narrative: Aguila very pleasant 56-year-old young man, admitted to [facility] with fever, insomnia, racing thoughts and worsening hip pain. He underwent left total hip arthroplasty 12/04/2021 for avascular necrosis left hip and was discharged on 12/05/[address] [facility]. He was discharged from [place] with a wound VAC. his surgery was disruptive and he did not get his usual medications at the correct times which resulted in him not taping for the last 4 nights. He has bipolar disorder. He states he had a fever of 101.5? last night. While at [facility] he has not had a fever. He had not had a bowel movement for 4 days, now today he has had loose stools x7. He is obese and had to lose 125 lb over the last 2 years to be able to go through his current hip replacement. Orthopedics is consulted due to his fever and left hip pain. He lives in a assisted in [place]. Review of Systems Narrative: Patient denies nausea, vomiting, chills, chest pain, shortness of breath, fatigue. States the fever 101.5 ? last night. [facility] Medical History Anxiety Arthritis of left knee Bipolar affective disorder, currently manic, mild Chronic back pain Gout Hip pain, left Internal hemorrhoid, bleeding Michelle Obesity, morbid, BMI 50 or higher PAC (premature atrial contraction) Primary hypertension Severe manic bipolar 1 disorder with psychotic behavior Surgical History H/O arthroscopy of left knee H/O arthroscopy of right knee History of tonsillectomy Hx laparoscopic cholecystectomy Status post total hip replacement, left Social History Narrative: Has been living at a assisted in [place]. He is a lifelong nonsmoker, denies alcohol or recreational drug use. Wishes to be a full code. Highest level of school completed/degree received: high school graduate Smoking Status: Never smoker How often do you have a drink containing alcohol: never How often do you have six or more drinks on one occasion: Never AUDIT-C Alcohol total score: 0 Non-prescribed substance use: denies use Caffeine: No service: No Meds Home Medications and Allergies Home Medications Medication Instructions Recorded Confirmed Type acetaminophen 325 mg tablet 975 mg PO TID 12/06/21 12/06/21 History aripiprazole 15 mg tablet 15 mg PO DAILY 12/06/21 12/06/21 History ascorbic acid (vitamin C) 1,000 mg 1 g PO DAILY 12/06/21 12/06/21 History capsule aspirin 325 mg tablet,delayed 325 mg PO DAILY 12/06/21 12/06/21 History release buspirone 5 mg tablet 5 mg PO TID 12/06/21 12/06/21 History carbamazepine 200 mg tablet 400 mg PO BID 12/06/21 12/06/21 History celecoxib 200 mg capsule 200 mg PO DAILY 12/06/21 12/06/21 History cholecalciferol (vitamin D3) 125 125 mcg PO DAILY 12/06/21 12/06/21 History mcg (5,000 unit) capsule docusate sodium 100 mg capsule 100 mg PO BID 12/06/21 12/06/21 History (Col-Rite) famotidine 20 mg tablet 20 mg PO Q12H 12/06/21 12/06/21 History metoprolol tartrate 50 mg tablet 50 mg PO BID 12/06/21 12/06/21 History multivitamin with iron-mineral 1 tab PO DAILY 12/06/21 12/06/21 History olanzapine 5 mg disintegrating 5 mg PO HS 12/06/21 12/06/21 History tablet omega 1-hkw-yaw-fish oil 1,200 mg 1 cap PO DAILY 12/06/21 12/06/21 History (144 mg-216 mg) capsule (Fish Oil) omeprazole 20 mg capsule,delayed 20 mg PO DAILY 12/06/21 12/06/21 History release oxycodone 5 mg tablet 5 mg PO Q4H PRN 12/06/21 12/06/21 History polyethylene glycol 3350 17 17 g PO DAILY 12/06/21 12/06/21 History gram/dose oral powder psyllium husk (with sugar) 3 1 tbsp PO DAILY 12/06/21 12/06/21 History gram/7 gram oral powder (Metamucil (with sugar)) sennosides 8.6 mg-docusate sodium 1 tab-cap PO BID 12/06/21 12/06/21 History 50 mg tablet (Senokot-S) tamsulosin 0.4 mg capsule 0.4 mg PO DAILY 12/06/21 12/06/21 History Allergies Allergy/AdvReac Type Severity Reaction Status Date / Time lithium Allergy Intermediate Palpitation Verified 12/06/21 04:46 s divalproex sodium AdvReac Intermediate Weight Verified 12/06/21 04:46 [From Depakote] Gain and Excessive Sedation valproic acid AdvReac Intermediate Weight Gain Verified 12/06/21 04:47 morphine AdvReac Mild Itching Verified 12/06/21 04:46 Ortho Exam Narrative Exam Narrative: Alert and oriented x3. Patient is in no acute distress. Converses without labored breathing. Hearing is grossly intact. Ambulates well with a walker with 1 assist. Examination of the left hip shows a wound VAC is in place. It is not grunting or making any noises, therefore has a good seal. Soft tissue edema is present about the left buttock and thigh. Ecchymosis is present about the hip, mostly posteriorly. Anterior approach to the hip was performed. Large pannus is present. No fluctuance. No warmth. No erythema or sign of infection. Tender to palpation about the thigh. No foot drop. Unable to lift the left leg as in hip flexion while seated in recliner with the left leg. Easily able to do this on the right leg. Able to get off the recliner and off the toilet seat on his own. Difficulty getting into bed, for he cannot raise his left leg into bed without assistance. CMS otherwise intact left lower extremity. Bilateral calves are soft and nontender. Range of motion of the left knee is without significant pain, however he states he has arthritis in that knee as well. Const Vital Signs, click to edit/add: Vital Signs - 24 hr 12/06/21 03:38 12/06/21 04:01 12/06/21 04:59 Temperature 98.2 F 98.2 F 98.0 F Pulse Rate [Left Brachial] Pulse Rate [Pulse Oximeter] Pulse Rate [Right Pulse Oximeter] 79 74 Respiratory Rate 16 16 Blood Pressure [Left Arm] Blood Pressure [Left Upper Arm] 106/59 L 110/70 Pulse Oximetry 97 97 Oxygen Delivery Method Room Air Room Air 12/06/21 07:31 12/06/21 07:53 12/06/21 08:00 Temperature 98.2 F 98.1 F 98.2 F Pulse Rate [Left Brachial] 88 81 Pulse Rate [Pulse Oximeter] 85 81 Pulse Rate [Right Pulse Oximeter] Respiratory Rate 20 20 18 Blood Pressure [Left Arm] 125/87 138/68 125/87 Blood Pressure [Left Upper Arm] Pulse Oximetry 97 100 97 Oxygen Delivery Method Room Air Room Air Room Air 12/06/21 10:45 12/06/21 08:00 Temperature 98.2 F Pulse Rate [Left Brachial] 81 Pulse Rate [Pulse Oximeter] 81 Pulse Rate [Right Pulse Oximeter] Respiratory Rate 18 Blood Pressure [Left Arm] 125/87 Blood Pressure [Left Upper Arm] Pulse Oximetry 97 97 Oxygen Delivery Method Room Air Room Air Results Labs Labs: Laboratory Results - last 48 hr 12/06/21 12/06/21 12/06/21 03:40 03:40 03:40 WBC 4.68 RBC 2.77 L Hgb 8.7 L Hct 25.0 L MCV 90 MCH 31 MCHC 35 RDW Coeff of Mamadou 12.7 Plt Count 128 L Neut % (Auto) 67.8 Lymph % (Auto) 18.8 L [place] % (Auto) 10.9 Eos % (Auto) 1.9 Baso % (Auto) 0.4 Neut # (Auto) 3.17 Lymph # (Auto) 0.90 [place] # (Auto) 0.50 Eos # (Auto) 0.09 Baso # (Auto) 0.02 Abs Immat Gran (auto) 0.01 Sodium 122 L* Potassium 4.1 Chloride 90 L Carbon Dioxide 27 BUN 15 Creatinine 0.7 Estimated Creat Clear 112.79 Estimated GFR 110 Glucose 107 Lactate 0.8 Calcium 7.7 L Magnesium 1.8 Total Bilirubin 0.6 AST 58 H ALT 11 Alkaline Phosphatase 51 C-Reactive Protein 12.9 H Total Protein 5.4 L Albumin 3.1 L Urine Color Urine Appearance Urine pH Ur Specific [place] Urine Protein Urine Glucose (UA) Urine Ketones Urine Blood Urine Nitrite Urine Bilirubin Urine Urobilinogen Ur Leukocyte Esterase Urine RBC Urine WBC Ur Squamous Epith Cells Urine Bacteria Urine Opiates Screen Ur Oxycodone Screen Urine Methadone Screen Ur Propoxyphene Screen Ur Barbiturates Screen U Tricyclic Antidepress Ur Phencyclidine Scrn Ur Amphetamines Screen U Methamphetamines Scrn U Benzodiazepines Scrn Urine Cocaine Screen U Marijuana (THC) Screen Ur Drug Screen Comment SARS-CoV-2 (PCR) Influenza Type A (PCR) Influenza Type B (PCR) 12/06/21 12/06/21 12/06/21 03:51 08:19 09:02 WBC RBC Hgb Hct MCV MCH MCHC RDW Coeff of Mamadou Plt Count Neut % (Auto) Lymph % (Auto) [place] % (Auto) Eos % (Auto) Baso % (Auto) Neut # (Auto) Lymph # (Auto) [place] # (Auto) Eos # (Auto) Baso # (Auto) Abs Immat Gran (auto) Sodium Potassium Chloride Carbon Dioxide BUN Creatinine Estimated Creat Clear Estimated GFR Glucose Lactate Calcium Magnesium Total Bilirubin AST ALT Alkaline Phosphatase C-Reactive Protein Total Protein Albumin Urine Color Yellow Urine Appearance Clear Urine pH 6.5 Ur Specific [place] 1.015 Urine Protein Negative Urine Glucose (UA) Negative Urine Ketones Negative Urine Blood Trace-intact A Urine Nitrite Negative Urine Bilirubin Negative Urine Urobilinogen 0.2 Ur Leukocyte Esterase Negative Urine RBC 0-2 Urine WBC 0-2 Ur Squamous Epith Cells None Urine Bacteria None Urine Opiates Screen Negative Ur Oxycodone Screen Negative Urine Methadone Screen Negative Ur Propoxyphene Screen Negative Ur Barbiturates Screen Negative U Tricyclic Antidepress Negative Ur Phencyclidine Scrn Negative Ur Amphetamines Screen Negative U Methamphetamines Scrn Negative U Benzodiazepines Scrn Negative Urine Cocaine Screen Negative U Marijuana (THC) Screen Negative Ur Drug Screen Comment See Note SARS-CoV-2 (PCR) Negative SARS-CoV-2 Influenza Type A (PCR) Negative PCR FLU A Influenza Type B (PCR) Negative PCR FLU B 12/06/21 09:19 WBC RBC Hgb Hct MCV MCH MCHC RDW Coeff of Mamadou Plt Count Neut % (Auto) Lymph % (Auto) [place] % (Auto) Eos % (Auto) Baso % (Auto) Neut # (Auto) Lymph # (Auto) [place] # (Auto) Eos # (Auto) Baso # (Auto) Abs Immat Gran (auto) Sodium 124 L* Potassium Chloride Carbon Dioxide BUN Creatinine Estimated Creat Clear Estimated GFR Glucose Lactate Calcium Magnesium Total Bilirubin AST ALT Alkaline Phosphatase C-Reactive Protein Total Protein Albumin Urine Color Urine Appearance Urine pH Ur Specific [place] Urine Protein Urine Glucose (UA) Urine Ketones Urine Blood Urine Nitrite Urine Bilirubin Urine Urobilinogen Ur Leukocyte Esterase Urine RBC Urine WBC Ur Squamous Epith Cells Urine Bacteria Urine Opiates Screen Ur Oxycodone Screen Urine Methadone Screen Ur Propoxyphene Screen Ur Barbiturates Screen U Tricyclic Antidepress Ur Phencyclidine Scrn Ur Amphetamines Screen U Methamphetamines Scrn U Benzodiazepines Scrn Urine Cocaine Screen U Marijuana (THC) Screen Ur Drug Screen Comment SARS-CoV-2 (PCR) Influenza Type A (PCR) Influenza Type B (PCR) Diagnostic results Additional Comments: Abdominal x-rays were taken at [facility] which shows a left hip arthroplasty. Large amount of stool within the colon. No free air. Bowel gas pattern appears nonobstructive. This is radiologist impression. X-ray reviewed by myself shows the left hip prosthetic is well placed and well-fixed with to acetabular screws. The complete prosthetic is seen on these x-rays which shows no fractures. Assessment and Plan Assessment and plan (1) Hyponatremia: Problem comment: 08/31/21 Na 133 09/02/21 Na 130 09/04/21 Na 128 12/04/21 Na 125 12/05/21 Na 122 Status: Acute Total time spent: Total time spent is greater than 50% in coordination of care (as documented) at patient's floor/unit and/or counseling patient: (2) Postoperative fever: Problem comment: 101.5 POD #1 evening (12/05/21) Status: Acute Total time spent: Total time spent is greater than 50% in coordination of care (as documented) at patient's floor/unit and/or counseling patient: (3) Status post left hip replacement: Problem comment: 12/04/21 at [place], Dr. Hudson Vences Status: Acute Assessment and Plan: I spoke with Diane August PA-C,dr Booker's PA to let her know that Aguila is currently an inpatient at [facility]. We spoke about the wound VAC. She would like this left on until his 1st postop visit. Aguila has had no fevers since arriving at [facility]. He has weak hip flexor on the left, this can be from femoral nerve irritation from surgery verses general pain and swelling and obesity. He is however able to get out of a chair and off the toilet on his own. He needs assistance getting in and out of bed for he cannot raise his leg without assistance. With general ambulating he does fine. There is no infection about the left hip. CRP is elevated, which would be expected since he just underwent hip replacement. CRP will be repeated in the morning. Wound VAC will remain in place until he sees [facility] in the [place] office on Thursday12/18/2021 at 3:30 p.m.. Oxycodone And Tylenol for pain. Frequent ambulation at least every hour throughout the day, ankle pumps, wiggling toes, Aspirin 325 mg daily for 6 weeks for DVT prophylaxis per his orthopedic surgeon. Crib Tender is looking into a penitentiary facility upon discharge. Discharge when medically appropriate. Total time spent: Total time spent is greater than 50% in coordination of care (as documented) at patient's floor/unit and/or counseling patient: (4) Bipolar affective disorder, currently manic, mild: Problem comment: racing thoughts, speech, no sleep x 4 nights Status: Acute Total time spent: Total time spent is greater than 50% in coordination of care (as documented) at patient's floor/unit and/or counseling patient: (5) Insomnia due to mental disorder: Problem comment: bipolar michelle Status: Acute Total time spent: Total time spent is greater than 50% in coordination of care (as documented) at patient's floor/unit and/or counseling patient: (6) Anxiety: Status: Acute Total time spent: Total time spent is greater than 50% in coordination of care (as documented) at patient's floor/unit and/or counseling patient: (7) Constipation: Problem comment: No BM since surgery 12/04/21 Status: Acute Total time spent: Total time spent is greater than 50% in coordination of care (as documented) at patient's floor/unit and/or counseling patient: (8) Primary hypertension: Status: Chronic Total time spent: Total time spent is greater than 50% in coordination of care (as documented) at patient's floor/unit and/or counseling patient: (9) Thrombocytopenia: Problem comment: 12/05/21 Plts 175, 12/06/21 plts 128 Status: Acute Total time spent: Total time spent is greater than 50% in coordination of care (as documented) at patient's floor/unit and/or counseling patient: (10) Normocytic anemia: Problem comment: Suspect due to acute blood loss from recent left hip surgery on 12/04/21, 08/28/21 Hgb 14, 12/05/21 Hgb 9.6 Status: Acute Total time spent: Total time spent is greater than 50% in coordination of care (as documented) at patient's floor/unit and/or counseling patient: (11) Candidiasis: Problem comment: Pannus and groin Status: Acute Total time spent: Total time spent is greater than 50% in coordination of care (as documented) at patient's floor/unit and/or counseling patient:
--- NOTE | 2021-12-06 18:50 | PC.NURSE ---
shift note: pt p 1/walker. wound vac intact and site c/d/i. pt has redness in lt groin fold. nystantin applied. Lt ankle with yellowish bruising. PP+ bilat. LS clr. HR reg. pt rating lt hip pain 6-10. Pt medicated x2 with oxycodone and scheduled tylenol. IV patent Rt FA. Pt had 7 BM's that were loose.
[2021-12-06] MEDS: ENOXAPARIN 40 MG/0.4 ML INJ SUBCUT (20:31)
[2021-12-06] MEDS: NYSTATIN POWDER 1 APPLIC TOPICAL (20:32)
[2021-12-06 20:43] LABS: Sodium* 125 mmol/L (135-149)
[2021-12-06] MEDS: LORazepam 1 MG TABLET PO (22:57)
[2021-12-06] MEDS: SODIUM CHLORIDE 1 GM TABLET PO (22:58)
[2021-12-07] VITALS (7 sets, daily range): BP systolic 101–140; BP diastolic 46–70; PULSE 66–84; RESP 18–20; TEMP 36.7–37.1; O2SAT 96–99
[2021-12-07] MEDS: OXYCODONE 5 MG TABLET PO ×4 (02:31→21:14)
--- NOTE | 2021-12-07 05:34 | PC.NURSE ---
SHIFT NOTE -: Pt is pleasant and cooperative, A&O. Afebrile, VSS on RA. PRN Oxycodone given for pain, pt reports relief. Active ice on left hip continuously, dressing and wound vac C/D/I. Pt reports feeling like his pain and anxiety is better today. PRN Ativan given for sleep, pt reports he got 3 hours of sleep and that he was happy about it. Pt up 1 assist with a walker, tolerated well. Denies SOB, CP, and N/V. Pt did not want to complete the mental health eval last evening as he was too tired, but is agreeing to it this AM, currently waiting for the provider to respond so the pt can participate in the eval. Pt up in the recliner this AM with call light within reach.
[2021-12-07 06:53] LABS: Ionized Calcium* 1.12 mmol/L (1.11-1.30)
[2021-12-07 07:01] LABS: Basophils Percent Auto 0.3 % (0.0-3.0); Eosinophils Percent Auto 3.2 % (0.0-7.0); Hemoglobin* 8.2 gm/dL (13.5-17.5); Immature Granulocytes Abs Auto 0.01 K/uL (0.00-0.30); Lymphocytes Percent Auto 18.3 % (20-44); Mean Corpuscular HGB Conc 34 gm/dL (32-36); Mean Corpuscular Hemoglobin 32 pg (26-34); Mean Corpuscular Volume 92 fL (80-100); Monocytes Percent Auto 10.1 % (0.0-11.0); Neutrophils Percent Auto 67.8 % (42.0-72.0); Platelet Count* 123 K/uL (140-440); RDW Coefficient of Variation % 12.7 % (11.5-15.5); White Blood Count* 3.78 K/uL (4.50-11.00)
[2021-12-07 07:10] LABS: Slide Review Reflex No
[2021-12-07 07:27] LABS: Albumin* 3.1 g/dL (3.3-5.0); Chloride* 96 mmol/L (96-114); Potassium* 4.3 mmol/L (3.6-5.1); Sodium* 129 mmol/L (135-149)
[2021-12-07 07:29] LABS: Creatinine* 0.5 mg/dL (0.5-1.5); Est. Creatinine Clearance* 157.91; Estimated Glomerular Filt Rate 121 ml/min
[2021-12-07 07:30] LABS: Alkaline Phosphatase* 50 U/L (40-150); Aspartate Amino Transferase* 47 U/L (12-35); Bilirubin Total* 0.4 mg/dL (0.1-1.5); Blood Urea Nitrogen* 11 mg/dL (7-30); Carbon Dioxide* 28 mmol/L (20-32); Total Protein* 5.6 g/dL (6.0-8.3)
[2021-12-07 07:31] LABS: Alanine Aminotransferase* 10 U/L (4-50); Calcium* 7.9 mg/dL (8.4-10.6); Glucose* 110 mg/dL (60-115)
[2021-12-07] MEDS: SODIUM CHLORIDE 1 GM TABLET PO (07:44)
[2021-12-07] MEDS: OMEPRAZOLE 20 MG CAPSULE DR PO (07:45)
[2021-12-07] MEDS: CELECOXIB 200 MG CAPSULE PO (07:45)
[2021-12-07] MEDS: ASCORBIC ACID 500 MG TABLET 1000 MG PO (07:46)
[2021-12-07] MEDS: MULTIVITAMIN/MINERALS 1 TABLET 1 TAB PO (07:47)
[2021-12-07] MEDS: ASPIRIN EC 325 MG TABLET PO (07:47)
[2021-12-07] MEDS: TAMSULOSIN HCL 0.4 MG CAPSULE PO (07:48)
[2021-12-07] MEDS: carBAMazepine 200 MG TABLET 400 MG PO ×2 (07:48→21:11)
[2021-12-07] MEDS: ARIPiprazole 10 MG TABLET 15 MG PO (07:49)
[2021-12-07] MEDS: BUSPIRONE 10 MG TABLET 5 MG PO ×3 (07:55→21:09)
[2021-12-07] MEDS: ACETAMINOPHEN 325 MG TABLET 975 MG PO ×3 (07:56→21:10)
[2021-12-07] MEDS: METOPROLOL TARTRATE 50 MG TABLET PO ×2 (07:57→21:11)
[2021-12-07] MEDS: DOCUSATE SODIUM 100 MG CAPSULE PO (07:58)
[2021-12-07] MEDS: FAMOTIDINE 20 MG TABLET PO ×2 (07:58→21:11)
[2021-12-07 11:49] LABS: Urine Osmolality 320 mOsm/kg
--- NOTE | 2021-12-07 13:32 | PM.IMPN1 ---
Progress Note: A&P Assessment and plan (1) Hyponatremia: Problem details: 08/31/21 Na 133 09/02/21 Na 130 09/04/21 Na 128 12/04/21 Na 125 12/05/21 Na 122 Status: Acute Assessment and Plan: Acute on chronic hyponatremia. Continue fluid restriction. Will prescribe a daily salt tablet to allow more liberal fluid intake. Continue to monitor. Etiology of the hyponatremia is uncertain though his medications for his bipolar disorder may be part of this. Not unusual to see hyponatremia following hip surgery. (2) Postoperative fever: Problem details: 101.5 POD #1 evening (12/05/21) Status: Acute Assessment and Plan: Likely an uncomplicated postoperative fever. Continue to monitor for signs of infection. No indication for antibiotics at this time. (3) Status post left hip replacement: Problem details: 12/04/21 at [place], Dr. Hudson Vences Status: Acute Assessment and Plan: Day 3 postop. Routine followup with primary orthopedic surgeon as an outpatient (4) Bipolar affective disorder, currently manic, mild: Problem details: racing thoughts, speech, no sleep x 4 nights Status: Acute Assessment and Plan: Bipolar symptoms are much improved today by patient's description and by my examination. He was able to sleep last night. Continue his routine medication management and monitor. (5) Insomnia due to mental disorder: Problem details: bipolar michelle Status: Acute Assessment and Plan: He was able to sleep few hours last night (6) Constipation: Problem details: No BM since surgery 12/04/21 Status: Acute Assessment and Plan: Continue laxatives. (7) Primary hypertension: Status: Chronic Assessment and Plan: Chronic and stable (8) Thrombocytopenia: Problem details: 12/05/21 Plts 175, 12/06/21 plts 128 Status: Acute Assessment and Plan: Likely secondary to blood loss from hip surgery. Continue to monitor (9) Normocytic anemia: Problem details: Suspect due to acute blood loss from recent left hip surgery on 12/04/21, 08/28/21 Hgb 14, 12/05/21 Hgb 9.6 Status: Acute Assessment and Plan: Continue to monitor (10) Candidiasis: Problem details: Pannus and groin Status: Acute Assessment and Plan: Topical treatment and monitor Plan Continue in hospital for evaluation and management of above problems. Consult health social work professor for plan for disposition. Likely will need a rehab stay prior to returning to his half-way Time Spent With Patient Total time spent: Total time spent today is 40 minutes, 25 minutes in coordination of care discussing with patient and other providers management of bipolar disorder, hip arthroplasty and postoperative complications Subjective Date Seen: 12/07/21 Interval history: 56-year-old male seen in followup of hospitalization for management of mental health crisis, hyponatremia and possible complications of left hip surgery. Patient underwent left hip arthroplasty 3 days ago at [facility]. He was discharged home the next day. He then came to our hospital with increasing left hip pain, fever, insomnia and agitation. He reports that he felt like he was having a manic phase of his bipolar disorder. He attributes this to being off his relatively regimented routine for management of his bipolar disorder and medications. He reports he has been taking his medicines as prescribed in the last couple days. His sodium on admission was 122. He tells me he has chronic hyponatremia. He has been on a fluid restriction and his sodium is now up to 129 today. He was having a fever and worsening left hip pain which are now better. He had a wound VAC placed as a routine precaution postoperatively due to his obesity and concern about his overlying pannus causing an infection Exam Narrative: Exam Narrative: He is alert and appears in no distress. He is pleasant and cooperative. Speech is fluent. He is oriented to his circumstances. There is no flight of ideas, delusions, hallucinations, agitation, pressured speech. Respirations are clear to auscultation. Cardiovascular: S1, S2, regular rate and rhythm. No murmur gallop or rub. Abdomen: Bowel sounds active. Abdomen is soft without tenderness or mass. Abdominal pannus has some erythematous papules particularly in the left groin area adjacent to but not connected to his left anterior hip arthroplasty incision. The incision area itself has a wound VAC in place but there is no visible erythema. There is no drainage in the wound VAC tube. Distally he has intact pulses and sensation. Trace edema. He moves his feet and ankles with equal strength. Const: Vital Signs, click to edit/add: Vital Signs - 24 hr 12/06/21 15:00 12/06/21 20:00 12/06/21 23:00 Temperature 97.7 F Pulse Rate [Left B rachial] 88 76 79 Pulse Rate [Pulse Oximeter] 88 76 79 Respiratory Rate 22 20 20 Blood Pressure [Le ft Arm] 118/56 L Pulse Oximetry 97 Oxygen Delivery Me thod Room Air 12/06/21 20:00 12/06/21 23:00 12/07/21 03:00 Temperature 98 F 97.8 F 98.5 F Pulse Rate [Left B rachial] 76 79 66 Pulse Rate [Pulse Oximeter] 76 79 66 Respiratory Rate 18 18 18 Blood Pressure [Le ft Arm] 118/56 L 123/72 129/61 Pulse Oximetry 97 98 99 Oxygen Delivery Me thod Room Air Room Air Room Air 12/07/21 08:02 12/07/21 07:00 12/07/21 12:50 Temperature 98.6 F 98.6 F 98.8 F Pulse Rate [Left B rachial] 84 84 80 Pulse Rate [Pulse Oximeter] 84 84 80 Respiratory Rate 20 20 20 Blood Pressure [Le ft Arm] 140/68 H 140/68 H 101/68 Pulse Oximetry 99 99 98 Oxygen Delivery Me thod Room Air Room Air Room Air Documenting provider has reviewed patient's vital signs: yes Labs Labs: Laboratory Results - last 24 hr 12/06/21 12/06/21 12/06/21 08:19 09:30 20:24 WBC RBC Hgb Hct MCV MCH MCHC RDW Coeff of Mamadou Plt Count Neut % (Auto) Lymph % (Auto) [place] % (Auto) Eos % (Auto) Baso % (Auto) Neut # (Auto) Lymph # (Auto) [place] # (Auto) Eos # (Auto) Baso # (Auto) Abs Immat Gran (auto) Sodium 125 L Potassium Chloride Carbon Dioxide BUN Creatinine Estimated Creat Clear Estimated GFR Glucose Serum Osmolality 254 L Calcium Ionized Calcium Lina Total Bilirubin AST ALT Alkaline Phosphatase C-Reactive Protein Total Protein Albumin Ur Random Osmolality 320 12/07/21 12/07/21 12/07/21 06:46 06:46 06:46 WBC 3.78 L RBC 2.60 L Hgb 8.2 L Hct 24.0 L MCV 92 MCH 32 MCHC 34 RDW Coeff of Mamadou 12.7 Plt Count 123 L Neut % (Auto) 67.8 Lymph % (Auto) 18.3 L [place] % (Auto) 10.1 Eos % (Auto) 3.2 Baso % (Auto) 0.3 Neut # (Auto) 2.60 Lymph # (Auto) 0.70 L [place] # (Auto) 0.40 Eos # (Auto) 0.10 Baso # (Auto) 0.00 Abs Immat Gran (auto) 0.01 Sodium 129 L Potassium 4.3 Chloride 96 Carbon Dioxide 28 BUN 11 Creatinine 0.5 Estimated Creat Clear 157.91 Estimated GFR 121 Glucose 110 Serum Osmolality Calcium 7.9 L Ionized Calcium Lina 1.12 Total Bilirubin 0.4 AST 47 H ALT 10 Alkaline Phosphatase 50 C-Reactive Protein 15.0 H Total Protein 5.6 L Albumin 3.1 L Ur Random Osmolality
[2021-12-07] MEDS: NYSTATIN POWDER 1 APPLIC TOPICAL ×2 (14:39→21:30)
--- NOTE | 2021-12-07 18:11 | PC.NURSE ---
shift note: pt up sba//walker. pt rating lt thigh/hip pain 5-8/10. Pt medicated with oxycodone x2 with relief of pain. cms intact bilat l/e. PP+ bilat. bruising to lt ankle. wound vac in place and intact. Ls clr. Pt had episode of lightheadedness and felt like his lips were numb after ambulating in [place] with staff. pt placed in supine position and BP 101/68 HR 88. Pt stated that while laying flat his symptoms resolved. pt ambulated in [place] x2 after episode w/o difficulty. IV patent
[2021-12-07] MEDS: OLANZapine 5 MG TAB.RAPDIS PO (21:11)
[2021-12-07] MEDS: LORazepam 1 MG TABLET PO (21:11)
[2021-12-07] MEDS: ENOXAPARIN 40 MG/0.4 ML INJ SUBCUT (21:12)
[2021-12-08] MEDS: OXYCODONE 5 MG TABLET PO ×3 (02:36→10:30)
[2021-12-08] MEDS: NYSTATIN POWDER 1 APPLIC TOPICAL ×2 (02:39→09:27)
[2021-12-08 03:00] VITALS: BP 120/58; PULSE 64; RESP 20; TEMP 36.9; O2SAT 97
--- NOTE | 2021-12-08 05:49 | PC.NURSE ---
SHIFT NOTE : Pt cooperative, A&O. Afebrile, VSS on RA. PRN Oxycodone given for pain with pt reporting some relief. Wound vac dressing C/D/I, CMS intact. Up SBA with walker, tolerating well. PRN Ativan given for sleep, effective. Pt denies N/V, SOB, and CP. Pt up in recliner this AM with call light within reach.
[2021-12-08] MEDS: carBAMazepine 200 MG TABLET 400 MG PO (09:20)
[2021-12-08] MEDS: ACETAMINOPHEN 325 MG TABLET 975 MG PO (09:21)
[2021-12-08] MEDS: ARIPiprazole 10 MG TABLET 15 MG PO (09:21)
[2021-12-08] MEDS: SENNOSIDES/DOCUSATE TABLET 2 TAB PO (09:22)
[2021-12-08] MEDS: TAMSULOSIN HCL 0.4 MG CAPSULE PO (09:22)
[2021-12-08] MEDS: MULTIVITAMIN/MINERALS 1 TABLET 1 TAB PO (09:23)
[2021-12-08] MEDS: ASPIRIN EC 325 MG TABLET PO (09:24)
[2021-12-08] MEDS: CELECOXIB 200 MG CAPSULE PO (09:24)
[2021-12-08] MEDS: ASCORBIC ACID 500 MG TABLET 1000 MG PO (09:24)
[2021-12-08] MEDS: METOPROLOL TARTRATE 50 MG TABLET PO (09:25)
[2021-12-08] MEDS: BUSPIRONE 10 MG TABLET 5 MG PO (09:25)
[2021-12-08] MEDS: DOCUSATE SODIUM 100 MG CAPSULE PO (09:25)
[2021-12-08] MEDS: PSYLLIUM HUSK (WITH SUGAR) 12 GM PACKET PO (09:26)
[2021-12-08] MEDS: OMEPRAZOLE 20 MG CAPSULE DR PO (09:26)
[2021-12-08] MEDS: SODIUM CHLORIDE 1 GM TABLET PO (09:26)
[2021-12-08 09:32] VITALS: BP 142/80; PULSE 90; RESP 20; TEMP 36.7; O2SAT 98
[2021-12-08 09:37] LABS: Basophils Percent Auto 0.7 % (0.0-3.0); Eosinophils Percent Auto 4.4 % (0.0-7.0); Hematocrit 24.1 % (37.0-53.0); Lymphocytes Percent Auto 20.1 % (20-44); Mean Corpuscular HGB Conc 33 gm/dL (32-36); Mean Corpuscular Hemoglobin 31 pg (26-34); Mean Corpuscular Volume 93 fL (80-100); Monocytes Percent Auto 5.2 % (0.0-11.0); Neutrophils Percent Auto 69.6 % (42.0-72.0); Platelet Count* 150 K/uL (140-440); RDW Coefficient of Variation % 12.8 % (11.5-15.5); Red Blood Count 2.58 m/uL (4.30-5.90); White Blood Count* 4.07 K/uL (4.50-11.00)
[2021-12-08 09:46] LABS: Slide Review Reflex No
[2021-12-08 09:51] LABS: Chloride* 97 mmol/L (96-114); Potassium* 4.4 mmol/L (3.6-5.1); Sodium* 131 mmol/L (135-149)
[2021-12-08 09:54] LABS: Carbon Dioxide* 28 mmol/L (20-32); Creatinine* 0.6 mg/dL (0.5-1.5); Est. Creatinine Clearance* 131.59; Estimated Glomerular Filt Rate 115 ml/min
[2021-12-08 09:55] LABS: Blood Urea Nitrogen* 9 mg/dL (7-30); Calcium* 8.1 mg/dL (8.4-10.6); Glucose* 145 mg/dL (60-115)
[2021-12-08] MEDS: FAMOTIDINE 20 MG TABLET PO (10:30)
--- NOTE | 2021-12-08 10:34 | P.DS_ITS ---
DS: Providers Provider Date Seen: 12/08/21 Date of admission: 12/06/21 09:33 Primary care physician: John Sellers MD Admitting Clinician: Leticia Judd MD Attending Physician on discharge: Leticia Judd MD Date of Discharge: 12/08/21 DS: Diagnosis Discharge Diagnosis (1) Hyponatremia: Status: Acute Problem details: 08/31/21 Na 133 09/02/21 Na 130 09/04/21 Na 128 12/04/21 Na 125 12/05/21 Na 122 12/08/21 Na 131 (2) Candidiasis: Status: Acute Problem details: Pannus and groin. Mild, on nystatin powder. (3) Normocytic anemia: Status: Acute Problem details: Suspect due to acute blood loss from recent left hip surgery on 12/04/21, 08/28/21 Hgb 14, 12/05/21 Hgb 9.6 (4) Thrombocytopenia: Status: Acute Problem details: 12/05/21 Plts 175, 12/06/21 plts 128 (5) Postoperative fever: Status: Acute Problem details: 101.5 POD #1 evening (12/05/21). Resolved. Likely benign postoperative fever (6) Insomnia due to mental disorder: Status: Acute Problem details: Improved (7) Anxiety: Status: Acute Problem details: Improved (8) Constipation: Status: Acute Problem details: No BM since surgery 12/04/21 on laxatives (9) Status post left hip replacement: Status: Acute Problem details: 12/04/21 at [place], Dr. Hudson Vences (10) Primary hypertension: Status: Chronic (11) Bipolar affective disorder, currently manic, mild: Status: Acute Problem details: racing thoughts, speech, no sleep x 4 nights. Much improved. DS: Summary Hospital Course Hospital Course: 56-year-old male had left total hip arthroplasty performed at [facility]. He was discharged to his residential the 1st postoperative day. He was not doing well at home. Agitated and not sleeping. He it was suspected that he was anxious, possibly hypomanic. He was found to have a low-sodium of 122 as well. During his hospital stay he was placed on a fluid restriction for his hyponatremia. He also received 1 g sodium chloride daily. Sodium corrected over his 3 day stay from 122-131. He was continued on his normal home medications for his mental health conditions. There were no significant behavioral problems during his hospital stay. He did not exhibit significant issues with michelle, insomnia or agitation. His hip was evaluated and felt to be healing well. He was thought to have significant blood loss from his surgery but no other complications. No evidence of wound infection. He does have a wound VAC in place with no drainage. He did have what looks like a yeast infection in under his abdominal pannus treated with nystatin. He had a fever on admission but this resolved without intervent ion. No obvious source of infection. It was felt that this was a benign postoperative fever. No other apparent operative complications. Physical therapy and occupational therapy evaluated him and felt that he could move independently with use of his walker. They felt he was able to do self cares without difficulty. Status at Discharge Functional status at discharge: uses cane/walker Overall status at discharge: patient is back to baseline Time Spent with Patient Time attestation: Total time spent providing and/or coordinating discharge services: Time spent: Greater than 30 minutes Exam Narrative: Exam Narrative: He is alert and appears in no distress. Mood and affect are bright. Speech is normal. He does not have pressured speech. No flight of ideas, delusions or hallucinations. He exhibits very good insight into his current health status and circumstances. Respirations are clear to auscultation. Cardiovascular S1- S2 regular rate and rhythm. Abdomen is soft without tenderness or mass. Under his abdominal pannus he has some erythematous papules clustered in the skin fold consistent with a mild yeast dermatitis. He has a wound VAC in place over his anterior hip surgical incision on the left. No drainage from the wound VAC. No erythema is seen around the wound. Distally he has intact pulses and sensation. Trace edema bilaterally. Const: Vital Signs, click to edit/add: Vital Signs - 24 hr 12/07/21 12:50 12/07/21 15:00 12/07/21 15:00 Temperature 98.8 F 98.5 F Pulse Rate [Left B rachial] 80 80 72 Pulse Rate [Pulse Oximeter] 80 80 Respiratory Rate 20 20 20 Blood Pressure [Le ft Arm] 101/68 128/64 Pulse Oximetry 98 96 Oxygen Delivery Me thod Room Air Room Air 12/07/21 20:00 12/07/21 23:00 12/07/21 23:00 Temperature 98.1 F 98.6 F Pulse Rate [Left B rachial] 82 84 84 Pulse Rate [Pulse Oximeter] 82 84 84 Respiratory Rate 20 18 18 Blood Pressure [Le ft Arm] 132/70 112/46 L Pulse Oximetry 98 97 Oxygen Delivery Me thod Room Air Room Air 12/08/21 03:00 12/08/21 09:32 Temperature 98.4 F 98.1 F Pulse Rate [Left B rachial] 64 90 Pulse Rate [Pulse Oximeter] 90 Respiratory Rate 20 20 Blood Pressure [Le ft Arm] 120/58 L 142/80 H Pulse Oximetry 97 98 Oxygen Delivery Me thod Room Air Room Air Documenting provider has reviewed patient's vital signs: yes DS: Data Data Completed and Pending Labs on day of discharge: Labs from last 24 hours 12/08/21 12/08/21 12/06/21 09:25 09:25 09:30 WBC 4.07 L RBC 2.58 L Hgb 8.0 L Hct 24.1 L MCV 93 MCH 31 MCHC 33 RDW Coeff of Mamadou 12.8 Plt Count 150 Neut % (Auto) 69.6 Lymph % (Auto) 20.1 [place] % (Auto) 5.2 Eos % (Auto) 4.4 Baso % (Auto) 0.7 Neut # (Auto) 2.80 Lymph # (Auto) 0.80 L [place] # (Auto) 0.20 Eos # (Auto) 0.20 Baso # (Auto) 0.00 Abs Immat Gran (auto) 0.00 Sodium 131 L Potassium 4.4 Chloride 97 Carbon Dioxide 28 BUN 9 Creatinine 0.6 Estimated Creat Clear 131.59 Estimated GFR 115 Glucose 145 H Serum Osmolality 254 L Calcium 8.1 L Ur Random Osmolality 12/06/21 08:19 WBC RBC Hgb Hct MCV MCH MCHC RDW Coeff of Mamadou Plt Count Neut % (Auto) Lymph % (Auto) [place] % (Auto) Eos % (Auto) Baso % (Auto) Neut # (Auto) Lymph # (Auto) [place] # (Auto) Eos # (Auto) Baso # (Auto) Abs Immat Gran (auto) Sodium Potassium Chloride Carbon Dioxide BUN Creatinine Estimated Creat Clear Estimated GFR Glucose Serum Osmolality Calcium Ur Random Osmolality 320 Preliminary micro results at discharge 12/06/21 03:40 Blood Culture - Preliminary Blood NO GROWTH AFTER 48 HOURS 12/06/21 03:45 Blood Culture - Preliminary Blood NO GROWTH AFTER 48 HOURS Discharge Plan Discharge Disposition: Home w/ Parent or Adult Date of Admission: 12/06/21 09:33 Attending Provider on Discharge: Ramesh Baird Consulting Providers: Moisés Davis Primary Care Provider: John Sellers Anticipated Discharge Date/Time: 12/08/21 10:28 Discharge Medications: New ferrous sulfate 325 mg (65 mg iron) tablet 325 mg PO Q OTHER DAY Qty: 100 0RF nystatin 100,000 unit/gram powder 1 applic topical BID Qty: 30 0RF Continued celecoxib 200 mg capsule 200 mg PO DAILY oxycodone 5 mg tablet 5 mg PO Q4H PRN Label Comments: 1-2 tabs every 4 hours prn sennosides-docusate sodium [Senokot-S] 8.6-50 mg tablet 1 tab-cap PO BID Label Comments: 1-2 tabs by mouth 2 times a day acetaminophen 325 mg tablet 975 mg PO TID Label Comments: take 3 tabs by mouth every 8 hours aspirin 325 mg tablet,delayed release (DR/EC) 325 mg PO DAILY carbamazepine 200 mg tablet 400 mg PO BID Label Comments: TAKE 2 TABLETS BY MOUTH 2 TIMES DAILY. aripiprazole 15 mg tablet 15 mg PO DAILY Label Comments: TAKE 1 TABLET BY MOUTH EVERY DAY IN THE MORNING buspirone 5 mg tablet 5 mg PO TID Label Comments: TAKE 1 TABLET BY MOUTH THREE TIMES A DAY cholecalciferol (vitamin D3) 125 mcg (5,000 unit) capsule 125 mcg PO DAILY docusate sodium [Col-Rite] 100 mg capsule 100 mg PO BID famotidine 20 mg tablet 20 mg PO Q12H Label Comments: TAKE 1 TABLET (20 MG) BY MOUTH 2 TIMES DAILY. FOR ACID REFLUX. omega 2-ogg-pba-fish oil [Fish Oil] 1,200 (144-216) mg capsule 1 cap PO DAILY metoprolol tartrate 50 mg tablet 50 mg PO BID Label Comments: TAKE 1 TABLET BY MOUTH TWICE A DAY multivitamin with iron-mineral Tablet 1 tab PO DAILY olanzapine 5 mg tablet,disintegrating 5 mg PO HS Label Comments: TAKE 1 TABLET BY MOUTH EVERYDAY AT BEDTIME omeprazole 20 mg capsule,delayed release(DR/EC) 20 mg PO DAILY Label Comments: TAKE 1 CAPSULE (20 MG) BY MOUTH ONCE DAILY BEFORE A MEAL. FOR ACID REFLUX. polyethylene glycol 3350 17 gram/dose powder 17 g PO DAILY Metamucil (with sugar) 3 gram/7 gram powder 1 tbsp PO DAILY tamsulosin 0.4 mg capsule 0.4 mg PO DAILY Label Comments: TAKE 1 CAPSULE (0.4 MG) BY MOUTH ONCE DAILY AFTER A MEAL. FOR URINARY SYMPTO MS. ascorbic acid (vitamin C) 1,000 mg capsule 1 g PO DAILY Discharge Orders: Discharge Order (Routine); Ordered 12/08/21 Ordered By: Ramesh Baird Patient Education: Iron Supplements (By mouth), Hyponatremia (GEN) Activity Level: Activity as Tolerated, No strenuous activity and Use Walker Discharge Diet: Regular Follow Up Appointments: John Sellers MD [Primary Care Provider] - (Follow-up that in 1-2 weeks. Recheck CBC and basic metabolic panel.) [facility] Discharge Comments: keep follow up appt with Orthopedic team as scheduled, Thu12-18-21 at 3:30pm. wound vac is to stay in until follow up appt per YAIMA Contreras at [place].
[2021-12-08 11:00] VITALS: BP 123/58; PULSE 74; RESP 22; O2SAT 100
--- NOTE | 2021-12-08 14:36 | PC.NURSE ---
shift note; pt up /sba/walker. pt rating lt thigh pain 5-7/10. pt states oxycodone help releive pain slightly. pt has intact wound vac to lt thigh area. cms intact/ PP+ bilat. IV dc'd intact Rt wrist intact prior to dc. Reviewed dc instructions and copies sent with pt at dc. Belongings reviewed and sent with pt at dc.
== END 2021-12-08 12:47 | disposition home or self-care (01) | DRG 641 ==
LOC: ED 04:46 → MEDSURG 05:21
PROVIDERS: Family Medicine; Internal Medicine; Admitting Provider Family Medicine; Emergency Provider Family Medicine; PCP Family Medicine; Visit Provider Family Medicine
DX: E87.1 Hypo-osmolality and hyponatremia (principal); D62 Acute posthemorrhagic anemia; F31.10 Bipolar disorder, current episode manic without psychotic features, unspecified; Z68.42 Body mass index [BMI] 45.0-49.9, adult; D69.6 Thrombocytopenia, unspecified; K59.00 Constipation, unspecified; Z96.642 Presence of left artificial hip joint; E66.01 Morbid (severe) obesity due to excess calories; F41.9 Anxiety disorder, unspecified; I49.1 Atrial premature depolarization; I10 Essential (primary) hypertension; R50.82 Postprocedural fever; G47.00 Insomnia, unspecified; B37.2 Candidiasis of skin and nail
CPT/HCPCS: 36415; 71045; 74018; 80048; 80053; 80306; 81001; 81003; 81015; 82330; 83605; 83735; 83930; 83935; 84295; 85025; 86140; 87040; 87631; 97110; 97116; 97161; 97165; 97530; 97535; 99285; A9153; A9270; G0378; J1650; J1885; J7030

== ENCOUNTER 2021-12-09 13:20 | Emergency (ER) | payer OTHER, SELFPAY ==
[2021-12-09 13:41] VITALS: BP 145/84; PULSE 86; RESP 16; TEMP 37; O2SAT 96; BMI 45.0
--- NOTE | 2021-12-09 14:12 | CRLHL7_ITS ---
For Patients: As a result of the Century Cures Act, medical imaging exams and procedure reports are released immediately into your electronic medical record. You may view this report before your referring provider. If you have questions, please contact your health care provider. INDICATION: Postsurgery pain and swelling. Left total hip arthroplasty. TECHNIQUE: Ultrasound venous duplex bilateral lower extremity. Compression venous exam was performed using orozco-scale, color Doppler, and spectral Doppler analysis. COMPARISON: None. FINDINGS: Right leg: Normal color-flow, compressibility, and augmentation from the common femoral vein through the posterior tibial veins and peroneal veins. Not able to visualize the greater saphenous and proximal deep femoral vein due to dressings. Left leg: Nonocclusive thrombus extending from the mid superficial femoral vein through the popliteal vein. There is also nonocclusive thrombus in the peroneal veins. Normal color flow, compressibility, and augmentation in the left common femoral first and posterior tibial veins. IMPRESSION: Nonocclusive thrombus extending from the left mid superficial femoral vein to the popliteal veins. There is also nonocclusive thrombus in the left peroneal veins. Findings conveyed to Dr. Griggs at 4:10 p.m. on 12/09/2021. Dictated by Vin Santiago MD @ 12/09/2021 4:18:18 PM (Electronically Signed)
--- NOTE | 2021-12-09 14:14 | ED_ITS ---
HPI - General Adult General Time Seen by Provider: 14:14 Date Seen: 12/09/21 Chief complaint: Extremity Pain/Injury, Lower Stated complaint: DVT blood clot concern, left leg Time Seen by Provider: 12/09/21 13:22 Source: patient Mode of arrival: EMS Limitations: physical limitation History of Present Illness HPI narrative: Patient is a 56-year-old male who about a week ago had his hip replaced at [facility]. Patient has a history of bipolar. He was hospitalized postoperatively here with anemia and hyponatremia by history. The patient reports that he has had some swelling in his left leg and calf and it has become more painful, and the staff felt that as well as the [facility] DrCharo He should get a Doppler scan leg to rule out DVT. Patient denies chest pain, denies shortness of breath, he does feel anxious, and that does make him feel more short of breath at times but not continuously his O2 sat is excellent. He has no chest pain, no abdominal pain, he has got a wound VAC in place patient has some bruising on the posterior lower thigh on the left Related Data Home Medications Medication Instructions Recorded Confirmed acetaminophen 325 mg tablet 975 mg PO TID 12/06/21 12/06/21 aripiprazole 15 mg tablet 15 mg PO DAILY 12/06/21 12/06/21 ascorbic acid (vitamin C) 1,000 mg 1 g PO DAILY 12/06/21 12/09/21 capsule aspirin 325 mg tablet,delayed 325 mg PO DAILY 12/06/21 12/09/21 release buspirone 5 mg tablet 5 mg PO TID 12/06/21 12/09/21 carbamazepine 200 mg tablet 400 mg PO BID 12/06/21 12/09/21 celecoxib 200 mg capsule 200 mg PO DAILY 12/06/21 12/09/21 cholecalciferol (vitamin D3) 125 125 mcg PO DAILY 12/06/21 12/09/21 mcg (5,000 unit) capsule docusate sodium 100 mg capsule 100 mg PO BID 12/06/21 12/09/21 (Col-Rite) famotidine 20 mg tablet 20 mg PO Q12H 12/06/21 12/09/21 metoprolol tartrate 50 mg tablet 50 mg PO BID 12/06/21 12/09/21 multivitamin with iron-mineral 1 tab PO DAILY 12/06/21 12/06/21 olanzapine 5 mg disintegrating 5 mg PO HS 12/06/21 12/09/21 tablet omega 9-teq-vjz-fish oil 1,200 mg 1 cap PO DAILY 12/06/21 12/09/21 (144 mg-216 mg) capsule (Fish Oil) omeprazole 20 mg capsule,delayed 20 mg PO DAILY 12/06/21 12/06/21 release oxycodone 5 mg tablet 5 mg PO Q4H PRN 12/06/21 12/09/21 polyethylene glycol 3350 17 17 g PO DAILY 12/06/21 12/06/21 gram/dose oral powder psyllium husk (with sugar) 3 1 tbsp PO DAILY 12/06/21 12/06/21 gram/7 gram oral powder (Metamucil (with sugar)) sennosides 8.6 mg-docusate sodium 1 tab-cap PO BID 12/06/21 12/09/21 50 mg tablet (Senokot-S) tamsulosin 0.4 mg capsule 0.4 mg PO DAILY 12/06/21 12/06/21 sodium chloride 1,000 mg soluble mg 12/09/21 tablet Previous Rx's Medication Instructions Recorded ferrous sulfate 325 mg (65 mg 325 mg PO Q OTHER DAY #100 tabs 12/08/21 iron) tablet nystatin 100,000 unit/gram topical 1 applic topical BID #30 grams 12/08/21 powder Allergies Allergy/AdvReac Type Severity Reaction Status Date / Time lithium Allergy Intermediate Palpitation Verified 12/09/21 14:16 s divalproex sodium AdvReac Intermediate Weight Verified 12/09/21 14:16 [From Depakote] Gain and Excessive Sedation valproic acid AdvReac Intermediate Weight Gain Verified 12/09/21 14:16 morphine AdvReac Mild Itching Verified 12/09/21 14:16 Review of Systems Status of ROS: Reports: 10 or more systems reviewed and unremarkable except as noted in History and below [facility] Medical History Anxiety Arthritis of left knee Bipolar affective disorder, currently manic, mild Chronic back pain Gout Hip pain, left Internal hemorrhoid, bleeding Molly Obesity, morbid, BMI 50 or higher PAC (premature atrial contraction) Primary hypertension Severe manic bipolar 1 disorder with psychotic behavior Surgical History H/O arthroscopy of left knee H/O arthroscopy of right knee History of tonsillectomy Hx laparoscopic cholecystectomy Status post total hip replacement, left Social History Narrative: Has been living at a skilled nursing in [place]. He is a lifelong nonsmoker, denies alcohol or recreational drug use. Wishes to be a full code. Highest level of school completed/degree received: high school graduate Smoking Status: Never smoker How often do you have a drink containing alcohol: never How often do you have six or more drinks on one occasion: Never AUDIT-C Alcohol total score: 0 Non-prescribed substance use: denies use Caffeine: No service: No Exam Narrative: Exam Narrative: Objective: The patient's vital signs are unremarkable, he is alert orient x3, noncyanotic. Talks in even and unlabored sentences O2 sat 96% on room air HEENT is unremarkable neck is supple nodes chest is clear no rales or wheezing heart rhythm without murmur Abdomen benign soft nontender Hip shows a wound VAC in place, he has got some soft tissue swelling more on the left than right in his calf and thigh, little bit of bruising on his posterior distal thigh. This looks like normal postoperative findings however given his increased swelling in the left leg and his postop status. A Doppler scan lower extremities bilaterally be obtained. Const: Vital Signs, click to edit/add: Vital Signs - 24 hr 12/09/21 13:41 Temperature 98.6 F Pulse Rate [Pulse Oximeter] 86 Respiratory Rate 16 Blood Pressure [Le ft Upper Arm] 145/84 H Pulse Oximetry 96 Course Vital Signs Vital signs: Initial Vital Signs Temperature 98.6 F 12/09/21 13:41 Temperature Source Temporal Artery Scan 12/09/21 13:41 Pulse Rate 86 12/09/21 13:41 Pulse Rhythm 12/09/21 13:41 Pulse Strength 3+ Normal 12/09/21 13:41 Respiratory Rate 16 12/09/21 13:41 Blood Pressure 145/84 H 12/09/21 13:41 Blood Pressure Mean 104 12/09/21 13:41 Blood Pressure Position Sitting 12/09/21 13:41 Pulse Oximetry 96 12/09/21 13:41 Vital Signs Temperature 98.6 F 12/09/21 13:41 Pulse Rate 86 12/09/21 13:41 Respiratory Rate 16 12/09/21 13:41 Blood Pressure 145/84 H 12/09/21 13:41 Pulse Oximetry 96 12/09/21 13:41 Temperature 98.6 F 12/09/21 13:41 Pulse Rate 86 12/09/21 13:41 Respiratory Rate 16 12/09/21 13:41 Blood Pressure 145/84 H 12/09/21 13:41 Pulse Oximetry 96 12/09/21 13:41 Medical Decision Making MDM Narrative Medical decision making narrative: Patient has postop swelling on the left leg greater than right will do a Doppler scan of the lower extremities to make sure to neb DVT. He really has no symptoms consistent with PE and if his Doppler scan of the legs is negative likely can go home rest elevate and follow-up postoperative course. Please see addendum. Addendum: The patient does have a lower extremity DVT distal thigh to calf on the left. After discussion with Dr. Guardado hospitalist was felt that he is hemodynamically stable, without chest pain or shortness of breath and with good O2 sat. We can start him on Xarelto 15 mg b.i.d. for 21 days then 20 mg daily. He should follow up with regular doctor in the next 2 days, certainly return to the ED sooner problems or concerns. Discharge Plan Discharge Clinical Impression: Status post left hip replacement, Pain and swelling of lower extremity, DVT (deep venous thrombosis) Patient Disposition: Home w/ Parent or Adult Condition: Stable Additional Instructions: Xarelto 15 mg twice a day for 3 weeks, then 20 mg daily. Recheck with primary care in 2 days. Return sooner problems or concerns. Activity Level: Light activity Discharge Diet: Regular Prescriptions: No Action celecoxib 200 mg capsule 200 mg PO DAILY oxycodone 5 mg tablet 5 mg PO Q4H PRN Label Comments: 1-2 tabs every 4 hours prn sennosides-docusate sodium [Senokot-S] 8.6-50 mg tablet 1 tab-cap PO BID Label Comments: 1-2 tabs by mouth 2 times a day acetaminophen 325 mg tablet 975 mg PO TID Label Comments: take 3 tabs by mouth every 8 hours aspirin 325 mg tablet,delayed release (DR/EC) 325 mg PO DAILY carbamazepine 200 mg tablet 400 mg PO BID Label Comments: TAKE 2 TABLETS BY MOUTH 2 TIMES DAILY. aripiprazole 15 mg tablet 15 mg PO DAILY Label Comments: TAKE 1 TABLET BY MOUTH EVERY DAY IN THE MORNING buspirone 5 mg tablet 5 mg PO TID Label Comments: TAKE 1 TABLET BY MOUTH THREE TIMES A DAY cholecalciferol (vitamin D3) 125 mcg (5,000 unit) capsule 125 mcg PO DAILY docusate sodium [Col-Rite] 100 mg capsule 100 mg PO BID famotidine 20 mg tablet 20 mg PO Q12H Label Comments: TAKE 1 TABLET (20 MG) BY MOUTH 2 TIMES DAILY. FOR ACID REFLUX. omega 8-kss-ckd-fish oil [Fish Oil] 1,200 (144-216) mg capsule 1 cap PO DAILY metoprolol tartrate 50 mg tablet 50 mg PO BID Label Comments: TAKE 1 TABLET BY MOUTH TWICE A DAY multivitamin with iron-mineral Tablet 1 tab PO DAILY olanzapine 5 mg tablet,disintegrating 5 mg PO HS Label Comments: TAKE 1 TABLET BY MOUTH EVERYDAY AT BEDTIME omeprazole 20 mg capsule,delayed release(DR/EC) 20 mg PO DAILY Label Comments: TAKE 1 CAPSULE (20 MG) BY MOUTH ONCE DAILY BEFORE A MEAL. FOR ACID REFLUX. polyethylene glycol 3350 17 gram/dose powder 17 g PO DAILY Metamucil (with sugar) 3 gram/7 gram powder 1 tbsp PO DAILY tamsulosin 0.4 mg capsule 0.4 mg PO DAILY Label Comments: TAKE 1 CAPSULE (0.4 MG) BY MOUTH ONCE DAILY AFTER A MEAL. FOR URINARY SYMPTOMS. ascorbic acid (vitamin C) 1,000 mg capsule 1 g PO DAILY ferrous sulfate 325 mg (65 mg iron) tablet 325 mg PO Q OTHER DAY Qty: 100 0RF nystatin 100,000 unit/gram powder 1 applic topical BID Qty: 30 0RF sodium chloride 1,000 mg tablet,soluble Follow Up/Referrals: John Sellers MD [Primary Care Provider] - Stand Alone Forms: [facility] Info Instructions
[2021-12-09 14:20] VITALS: BP 142/72; PULSE 89; RESP 16; O2SAT 100
[2021-12-09 14:40] VITALS: BP 129/65; PULSE 81; RESP 16; O2SAT 100
[2021-12-09 15:00] VITALS: BP 145/81; PULSE 77; RESP 16; O2SAT 99
[2021-12-09 15:44] LABS: SARS PCR* Negative SARS-CoV-2 (Negative)
[2021-12-09] MEDS: RIVAROXABAN 10 MG TABLET 15 MG PO (16:04)
--- NOTE | 2021-12-09 21:03 | ED.NURSE ---
[facility] called requesting a copy of pt's US imaging report. Report faxed to provided number for Celeste [facility] ([phone]).
== END 2021-12-09 16:05 | disposition home or self-care (01) ==
PROVIDERS: Emergency Provider Family Medicine; PCP Family Medicine
DX: I82.492 Acute embolism and thrombosis of other specified deep vein of left lower extremity (principal); Z96.642 Presence of left artificial hip joint
CPT/HCPCS: 87635; 93970; 99284; A9270

== ENCOUNTER 2022-10-29 17:20 | Emergency (ER) | payer OTHER, SELFPAY ==
[2022-10-29 17:29] VITALS: PULSE 78; RESP 18; TEMP 36.9; O2SAT 98; BMI 46.7
[2022-10-29 17:37] VITALS: BP 158/89; PULSE 77; RESP 18; TEMP 36.9; O2SAT 98; BMI 30.5
--- NOTE | 2022-10-29 17:57 | CRLHL7_ITS ---
For Patients: As a result of the Century Cures Act, medical imaging exams and procedure reports are released immediately into your electronic medical record. You may view this report before your referring provider. If you have questions, please contact your health care provider. INDICATION: Jaw pain. TECHNIQUE: CT soft tissue of the neck was acquired with 95 cc Isovue 370 IV contrast. COMPARISON: None. FINDINGS: Skull base: Unremarkable. Pharynx/Larynx/Trachea: Epiglottis is normal. Airway is patent. Adjacent soft tissues are normal. Salivary glands: Unremarkable. Thyroid gland: Unremarkable. No significant nodules. Lymph nodes: No lymphadenopathy. Vessels: Atherosclerotic calcifications of the carotid bifurcations with at least mild stenosis of the right ICA origin. Bones: Multilevel cervical spondylosis. Misc: No inflammation, mass or fluid collection. Empty sockets with foci of gas in the left mandibular molars, consistent with provided history of tooth extractions. Lung apices: Unremarkable. IMPRESSION: No findings to explain pain. Left mandibular molar tooth extractions. No focal fluid collection. Please note that all CT scans at this facility use dose modulation, iterative reconstruction, and/or weight-based dosing when appropriate to reduce radiation dose to as low as reasonably achievable. Dictated by Julio Gray MD @ 10/29/2022 7:26:31 PM (Electronically Signed)
[2022-10-29 18:33] LABS: Basophils Absolute Auto 0.01 K/uL (0.00-0.30); Basophils Percent Auto 0.1 % (0.0-3.0); Hematocrit 36.4 % (37.0-53.0); Hemoglobin* 12.8 gm/dL (13.5-17.5); Immature Granulocytes Abs Auto 0.01 K/uL (0.00-0.30); Immature Granulocytes Pct Auto 0.1 %; Lymphocytes Percent Auto 4.5 % (20-44); Mean Corpuscular HGB Conc 35 gm/dL (32-36); Mean Corpuscular Hemoglobin 31 pg (26-34); Mean Corpuscular Volume 89 fL (80-100); Monocytes Percent Auto 4.8 % (0.0-11.0); Neutrophils Percent Auto 90.5 % (42.0-72.0); Platelet Count* 189 K/uL (140-440); RDW Coefficient of Variation % 12.4 % (11.5-15.5); Red Blood Count 4.08 m/uL (4.30-5.90); White Blood Count* 9.17 K/uL (4.50-11.00)
[2022-10-29 18:40] LABS: Slide Review Reflex No
[2022-10-29 18:58] LABS: Chloride* 93 mmol/L (96-114); Sodium* 126 mmol/L (135-149)
[2022-10-29 19:01] LABS: Blood Urea Nitrogen* 12 mg/dL (7-30); Calcium* 8.8 mg/dL (8.4-10.6); Carbon Dioxide* 23 mmol/L (20-32); Creatinine* 0.5 mg/dL (0.5-1.5); Est. Creatinine Clearance* 156.07; Estimated Glomerular Filt Rate 120 ml/min; Glucose* 117 mg/dL (60-115)
--- NOTE | 2022-10-29 19:27 | ED_ITS ---
HPI - General Adult General Chief complaint: Dental/Oral/Mouth Injury/Pain Stated complaint: Pain in upper jaw, fever Time Seen by Provider: 10/29/22 17:29 Related Data Home Medications Medication Instructions Recorded Confirmed acetaminophen 325 mg tablet 975 mg PO TID 12/06/21 10/29/22 aripiprazole 15 mg tablet 15 mg PO DAILY 12/06/21 10/29/22 ascorbic acid (vitamin C) 1,000 mg 1 g PO DAILY 12/06/21 10/29/22 capsule buspirone 5 mg tablet 5 mg PO TID 12/06/21 10/29/22 carbamazepine 200 mg tablet 400 mg PO BID 12/06/21 10/29/22 celecoxib 200 mg capsule 200 mg PO DAILY 12/06/21 10/29/22 cholecalciferol (vitamin D3) 125 125 mcg PO DAILY 12/06/21 10/29/22 mcg (5,000 unit) capsule docusate sodium 100 mg capsule 100 mg PO BID 12/06/21 10/29/22 (Col-Rite) famotidine 20 mg tablet 20 mg PO Q12H 12/06/21 10/29/22 metoprolol tartrate 50 mg tablet 50 mg PO BID 12/06/21 10/29/22 multivitamin with iron-mineral 1 tab PO DAILY 12/06/21 10/29/22 olanzapine 5 mg disintegrating 5 mg PO HS 12/06/21 12/09/21 tablet polyethylene glycol 3350 17 17 g PO DAILY 12/06/21 10/29/22 gram/dose oral powder psyllium husk (with sugar) 3 1 tbsp PO DAILY 12/06/21 10/29/22 gram/7 gram oral powder (Metamucil (with sugar)) sennosides 8.6 mg-docusate sodium 1 tab-cap PO BID 12/06/21 10/29/22 50 mg tablet (Senokot-S) tamsulosin 0.4 mg capsule 0.4 mg PO DAILY 12/06/21 10/29/22 sodium chloride 1,000 mg soluble 1,000 mg 12/09/21 tablet aspirin 81 mg tablet,delayed 81 mg PO DAILY 10/29/22 10/29/22 release (Adult Aspirin Regimen) lisinopril 10 mg tablet 10 mg PO DAILY 10/29/22 10/29/22 rosuvastatin 20 mg tablet 20 mg PO QPM 10/29/22 10/29/22 sennosides 8.6 mg-docusate sodium 1 tab-cap PO QHS 10/29/22 10/29/22 50 mg tablet (2-in-1 Laxative) Previous Rx's Medication Instructions Recorded ferrous sulfate 325 mg (65 mg 325 mg PO Q OTHER DAY #100 tabs 12/08/21 iron) tablet rivaroxaban 15 mg tablet (Xarelto) 15 mg PO BID #42 tabs 12/09/21 amoxicillin 875 mg-potassium 1 tab PO Q12H #10 tabs 10/29/22 clavulanate 125 mg tablet Allergies Allergy/AdvReac Type Severity Reaction Status Date / Time lithium Allergy Intermediate Palpitation Verified 10/29/22 18:40 s divalproex sodium AdvReac Intermediate Weight Verified 10/29/22 18:40 [From Depakote] Gain and Excessive Sedation valproic acid AdvReac Intermediate Weight Gain Verified 10/29/22 18:40 morphine AdvReac Mild Itching Verified 10/29/22 18:40 [facility] Medical History Anxiety Arthritis of left knee Bipolar affective disorder, currently manic, mild Chronic back pain Gout Hip pain, left Internal hemorrhoid, bleeding Molly Obesity, morbid, BMI 50 or higher PAC (premature atrial contraction) Primary hypertension Severe manic bipolar 1 disorder with psychotic behavior Surgical History H/O arthroscopy of left knee H/O arthroscopy of right knee History of tonsillectomy Hx laparoscopic cholecystectomy Status post total hip replacement, left Social History Narrative: Has been living at a jail in [place]. He is a lifelong nonsmoker, denies alcohol or recreational drug use. Wishes to be a full code. Highest level of school completed/degree received: high school graduate Smoking Status: Never smoker How often do you have a drink containing alcohol: never How often do you have six or more drinks on one occasion: Never AUDIT-C Alcohol total score: 0 Non-prescribed substance use: denies use Caffeine: No service: No Exam Const: Vital Signs, click to edit/add: Vital Signs - 24 hr 10/29/22 17:29 10/29/22 17:37 10/29/22 19:31 Temperature 98.5 F 98.5 F 99 F Pulse Rate [Left P ulse Oximeter] 78 77 74 Respiratory Rate 18 18 22 Blood Pressure [Le ft Upper Arm] 158/89 H 144/81 H Pulse Oximetry 98 98 97 Oxygen Delivery Me thod Room Air Room Air Room Air Course Vital Signs Vital signs: Initial Vital Signs Temperature 98.5 F 10/29/22 17:29 Temperature Source Temporal Artery Scan 10/29/22 17:29 Pulse Rate 78 10/29/22 17:29 Pulse Rhythm Regular 10/29/22 17:29 Respiratory Rate 18 10/29/22 17:29 Pulse Oximetry 98 10/29/22 17:29 Oxygen Delivery Method Room Air 10/29/22 17:29 Vital Signs Temperature 98.5 F 10/29/22 17:29 Pulse Rate 78 10/29/22 17:29 Respiratory Rate 18 10/29/22 17:29 Pulse Oximetry 98 10/29/22 17:29 Oxygen Delivery Method Room Air 10/29/22 17:29 Temperature 99 F 10/29/22 19:31 Pulse Rate 74 10/29/22 19:31 Respiratory Rate 22 10/29/22 19:31 Blood Pressure 144/81 H 10/29/22 19:31 Pulse Oximetry 97 10/29/22 19:31 Oxygen Delivery Method Room Air 10/29/22 19:31 Medical Decision Making MDM Narrative Medical decision making narrative: Patient is a 57-year-old male presented emergency department for jaw pain it has been going for past week since he had tooth extractions. He signed a fevers or chills and has no some mild swelling and some redness to his cheeks. He is also having bilateral maxillary sinus pressure. Says his symptoms do feel better than it did this morning. He had temperature of 102.1? at home and took Tylenol ibuprofen for it and his fever has since resolved. Given his recent surgery and his fever we will do a CT scan to check for signs of Dental an soft tissue infection. Cbc and BMP also ordered. Patient does not want any pain medication at this time. Cbc shows a normal white blood cell count. No other concerning abnormalities. BMP shows sodium of 126 and chloride of 93. Checking his history he does is on salt tabs and states he has a history of low sodium. Says he has not been symptomatic from at this time and with his history we will give 1 L of normal saline without any further workup is necessary. He states he is going to follow up with his primary care provider About his sodium tomorrow. CT scan returned showing no concerning abnormalities. No clear signs of infection. Worse no obvious signs of infection this time we will Start him on antibiotics and have him follow-up outpatient. He is agreeable to this plan. Lab Data Labs: Lab Results 10/29/22 Range/Units 18:20 WBC 9.17 (4.50-11.00) K/uL RBC 4.08 L (4.30-5.90) m/uL Hgb 12.8 L (13.5-17.5) gm/dL Hct 36.4 L (37.0-53.0) % MCV 89 (80-100) fL MCH 31 (26-34) pg MCHC 35 (32-36) gm/dL RDW Coeff of Mamadou 12.4 (11.5-15.5) % Plt Count 189 (140-440) K/uL Neut % (Auto) 90.5 H (42.0-72.0) % Lymph % (Auto) 4.5 L (20-44) % [place] % (Auto) 4.8 (0.0-11.0) % Eos % (Auto) 0.0 (0.0-7.0) % Baso % (Auto) 0.1 (0.0-3.0) % Neut # (Auto) 8.30 H (1.7-7.0) K/uL Lymph # (Auto) 0.40 L (0.90-2.90) K/uL [place] # (Auto) 0.40 (0.00-0.90) K/UL Eos # (Auto) 0.00 (0.00-0.50) K/uL Baso # (Auto) 0.01 (0.00-0.30) K/uL Abs Immat Gran (auto) 0.01 (0.00-0.30) K/uL Imm/Tot Granulo (auto) 0.1 % Sodium 126 L (135-149) mmol/L Potassium 4.0 (3.6-5.1) mmol/L Chloride 93 L (96-114) mmol/L Carbon Dioxide 23 (20-32) mmol/L BUN 12 (7-30) mg/dL Creatinine 0.5 (0.5-1.5) mg/dL Estimated Creat Clear 156.07 Estimated GFR 120 ml/min Glucose 117 H (60-115) mg/dL Calcium 8.8 (8.4-10.6) mg/dL Discharge Plan Discharge Clinical Impression: Dental caries, Hyponatremia Patient Disposition: Home, Self-Care Condition: Stable Instructions: Hyponatremia (ED) Additional Instructions: have close follow-up with primary care provider for your hyponatremia. Continue take care previous medications as directed. I did Give your prescription of Augmentin for possible dental infections. Return for new worsening symptoms. Prescriptions: New amoxicillin-pot clavulanate 875-125 mg tablet 1 tab PO Q12H Qty: 10 0RF No Action celecoxib 200 mg capsule 200 mg PO DAILY sennosides-docusate sodium [Senokot-S] 8.6-50 mg tablet 1 tab-cap PO BID Patient Comments: 1-2 tabs by mouth 2 times a day acetaminophen 325 mg tablet 975 mg PO TID Patient Comments: take 3 tabs by mouth every 8 hours carbamazepine 200 mg tablet 400 mg PO BID Patient Comments: TAKE 2 TABLETS BY MOUTH 2 TIMES DAILY. aripiprazole 15 mg tablet 15 mg PO DAILY Patient Comments: TAKE 1 TABLET BY MOUTH EVERY DAY IN THE MORNING buspirone 5 mg tablet 5 mg PO TID Patient Comments: TAKE 1 TABLET BY MOUTH THREE TIMES A DAY cholecalciferol (vitamin D3) 125 mcg (5,000 unit) capsule 125 mcg PO DAILY docusate sodium [Col-Rite] 100 mg capsule 100 mg PO BID famotidine 20 mg tablet 20 mg PO Q12H Patient Comments: TAKE 1 TABLET (20 MG) BY MOUTH 2 TIMES DAILY. FOR ACID REFLUX. metoprolol tartrate 50 mg tablet 50 mg PO BID Patient Comments: TAKE 1 TABLET BY MOUTH TWICE A DAY multivitamin with iron-mineral Tablet 1 tab PO DAILY olanzapine 5 mg tablet,disintegrating 5 mg PO HS Patient Comments: TAKE 1 TABLET BY MOUTH EVERYDAY AT BEDTIME polyethylene glycol 3350 17 gram/dose powder 17 g PO DAILY Metamucil (with sugar) 3 gram/7 gram powder 1 tbsp PO DAILY tamsulosin 0.4 mg capsule 0.4 mg PO DAILY Patient Comments: TAKE 1 CAPSULE (0.4 MG) BY MOUTH ONCE DAILY AFTER A MEAL. FOR URINARY SYMPTOMS. ascorbic acid (vitamin C) 1,000 mg capsule 1 g PO DAILY ferrous sulfate 325 mg (65 mg iron) tablet 325 mg PO Q OTHER DAY Qty: 100 0RF sodium chloride 1,000 mg tablet,soluble 1,000 mg Xarelto 15 mg tablet 15 mg PO BID Qty: 42 0RF Rx Instructions: must administer with evening meal; get second xarelto today lisinopril 10 mg tablet 10 mg PO DAILY rosuvastatin 20 mg tablet 20 mg PO QPM sennosides-docusate sodium [2-in-1 Laxative] 8.6-50 mg tablet 1 tab-cap PO QHS aspirin [Adult Aspirin Regimen] 81 mg tablet,delayed release (DR/EC) 81 mg PO DAILY Follow Up/Referrals: Ignacio Mckeon MD [Primary Care Provider] - Stand Al[facility]
[2022-10-29 19:31] VITALS: BP 144/81; PULSE 74; RESP 22; TEMP 37.2; O2SAT 97
[2022-10-29] MEDS: 0.9 % SODIUM CHLORIDE 1000 ml 1,000 ML IV (19:35)
--- NOTE | 2022-10-29 20:04 | ED.NURSE ---
report given off to ER nurse
[2022-10-29] MEDS: AMOXICILLIN/CLAVULANATE 875 mg/125 mg TABLET PO (20:36)
--- NOTE | 2022-10-29 20:43 | ED.NURSE ---
IV DC'd. Cath intact.
== END 2022-10-29 20:48 | disposition home or self-care (01) ==
PROVIDERS: Emergency Provider Student in an Organized Health Care Education/Training Program; PCP Family Medicine
DX: E87.1 Hypo-osmolality and hyponatremia (principal); K02.9 Dental caries, unspecified
CPT/HCPCS: 36415; 70491; 80048; 85025; 96360; 99283; 99284; 99285; A9270; J7030; Q9967

== ENCOUNTER 2023-11-21 10:06 | Emergency (ER) | payer OTHER, SELFPAY ==
[2023-11-21 10:11] VITALS: BP 161/95; PULSE 74; RESP 20; TEMP 36.6; O2SAT 97; BMI 45.4
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
== END 2023-11-21 11:22 | disposition home or self-care (01) ==
LOC: ED 11:17
PROVIDERS: Emergency Provider Family Medicine; PCP Family Medicine
DX: R23.3 Spontaneous ecchymoses (principal)
CPT/HCPCS: 99283

== ENCOUNTER 2024-06-24 20:35 | Emergency (ER) | payer MEDICARE, SELFPAY ==
--- OUTSIDE RECORDS SUMMARY | 2024-06-24 20:37 | XMS_ITS | Encounter Summary ---
Author Organization [employer] [place] Address [address] [place] [address] Care Team Providers Care Inspector Crystal Name Role Phone John Sellers MD Primary Care Provider [phone] Carnes, Anamyriam E PA-C Unavailable +[phone] Ryne Pearce MD Unavailable +[phone] Lore Canales PharmD Unavailable +[phone] Lore Canales PharmD Unavailable +[phone] Ryne Pearce MD Unavailable +[phone] Lore Canales PharmD Unavailable +[phone] Mela Delgado APRN, CNP Unavailable +[phone] Carnes, Anamyriam E PA-C Unavailable +[phone] Zac Cifuentes MD Unavailable + [phone] Carnes, Ricci E PA-C Unavailable + 5000 Zac Cifuentes MD Unavailable +[phone] [facility] [place] Primary Care Provider Encounter Details Date Type Department Care Team (Late st Contact Info) Description 08/27/2021 Documentation Only INTERFACED REPORT Unknown, Provider Social History Tobacco Use Types Packs/Day Years Used Date Smoking Tobacco: Never Smokeless Tobacco: Never Alcohol Use Standard Drinks/Week Comments No 0 (1 standard drink = 0.6 oz pur e alcohol) Sex and Gender Information Value Date Recorded Sex Assigned at Male 11/08/2020 4:27 PM CDT 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 No / Unsure 08/28/2021 4:00 AM CDT documented as of this encounter Plan of Treatment Not on file documented as of this encounter Visit Diagnoses Not on filedocumented in this encounter Care Teams Inspector Crystal Relationship Specialty Start Date End Date John Sellers MD PCP - General Family Medicine - Sports Medicine 04/03/17 11/16/23 [address] [address] PCP - General 11/17/23 Ricci Carnes, PAGiorgioC [address] [place] [address] Assigned Heart and Vascular Provider 06/20/20 04/25/22 Ryne Pearce MD [address] [address] Urology 07/12/21 Lore Canales, PharmD [address] [place] [address] 960314 Pharmacist Pharmacist 09/10/21 Lore Canales, PharmD [address] [place] [address] 997254 Assigned MTM Pharmacist 09/14/21 12/20/21 Ryne Pearce MD [address] [place], [place] [address] Assigned Surgical Provider 09/28/21 03/27/23 Lore Canales, PharmD [address] [place] [address] Assigned MTM Pharmacist 01/01/22 04/03/23 Mela Delgado, IRON GUARDRAIL INSTALLER EXTRACTIVE METALLURGIST [address] [place] [address] Assigned Heart and Vascular Provider 04/26/22 08/15/22 Ricci Carnes PA-C [address] [place] [address] Physician Lime Sludge Mixer Cardiovascular Disease 07/17/22 Zac Cifuentes MD [address] [place] [address] Cardiovascular Disease 08/21/22 Ricci Carnes PA-C [address] [place] [address] Assigned Heart and Vascular Provider 08/16/22 09/05/22 Zac Cifuentes MD [address] [place] [address] Assigned Heart and Vascular Provider 09/06/22 03/27/24 documented as of this encounter
--- OUTSIDE RECORDS SUMMARY | 2024-06-24 20:37 | XMS_ITS | Encounter Summary ---
Author Organization [employer] Address [address] [place] [address] Care Team Providers Care Car Head Liner Installer Name Role Phone John Sellers MD Primary Care Provider [phone] Carnes, Anamyriam E PA-C Unavailable +[phone] Ryne Pearce MD Unavailable +[phone] Lore Canales PharmD Unavailable +[phone] Lore Canales PharmD Unavailable +[phone] Ryne Pearce MD Unavailable +[phone] Lore Canales PharmD Unavailable +[phone] Mela Delgado APRN, CNP Unavailable +[phone] Carnes, Anah E PA-C Unavailable +[phone] Zac Cifuentes MD Unavailable +[phone] Carnes, Ricci E PA-C Unavailable + 5000 Zac Cifuentes MD Unavailable +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 No / Unsure 07/17/2021 10:32 AM CDT documented as of this encounter Plan of Treatment Not on file documented as of this encounter Visit Diagnoses Not on filedocumented in this encounter Additional Health Concerns Infection Onset Date Last Indicated Resolved Time Rule Out COVID-19 07/17/2021 07/17/2021 07/17/2021 2:53 PM CDT documented as of this encounter Care Teams Car Head Liner Installer Relationship Specialty Start Date End Date John Sellers MD PCP - General Family Medicine - Sports Medicine 04/03/17 11/16/23 [facility] [address] [place] [address] PCP - General 11/17/23 Ricci Carnes PA-C [address] [place] [address] Assigned Heart and Vascular Provider 06/20/20 04/25/22 Ryne Pearce MD [address] [address] Urology 07/12/21 Lore Canales, PharmD [address] [id number] [place], [place] [id number] Pharmacist Pharmacist 09/10/21 Lore Canales, PharmD [address] [place] [address] Assigned MTM Pharmacist 09/14/21 12/20/21 Ryne Pearce MD [address] [place], [place] 8[address] Assigned Surgical Provider 09/28/21 03/27/23 Lore Canales, PharmD [address] [place] [address] Assigned MTM Pharmacist 01/01/22 04/03/23 Mela Delgado APRN CNP [address] [place] [address] Assigned Heart and Vascular Provider 04/26/22 08/15/22 Ricci Carnes PA-C [address] [place] [address] Physician Robotics Engineer Cardiovascular Disease 07/17/22 Zac Cifuentes MD [address] [place] [address] Cardiovascular Disease 08/21/22 Ricci Carnes PA-C [address] [place] [address] Assigned Heart and Vascular Provider 08/16/22 09/05/22 Zac Cifuentes MD [address] [place] [address] Assigned Heart and Vascular Provider 09/06/22 03/27/24 documented as of this encounter
--- OUTSIDE RECORDS SUMMARY | 2024-06-24 20:37 | XMS_ITS | Encounter Summary ---
Author Organization [facility] Address [address] [place] [address] Care Team Providers Care Creative Recruiter Name Role Phone John Sellers MD Primary Care Provider [phone] Carnes, Anah E PA-C Unavailable + [phone] Ryne Pearce MD Unavailable [phone] Lore Canales PharmD Unavailable +[phone] Lore Canales PharmD Unavailable +[phone] Ryne Pearce MD Unavailable +[phone] Lore Canales PharmD Unavailable +[phone] Mela Delgado APRN WATER FITNESS INSTRUCTOR Unavailable +[phone] Carnes, Anah E PA-C Unavailable +[phone] Zac Cifuentes MD Unavailable +[phone] Carnes, Anah E PA-C Unavailable + 5000 Zac Cifuentes MD Unavailable +[phone] [facility] [place] Primary Care Provider Encounter Details Date Type Department Care Team (Late st Contact Info) Description 12/12/2020 [facility] [address] [place] [address] Lidya Yancey, RN Social History Tobacco Use Types Packs/Day Years Used Date Smoking Tobacco: Never Smokeless Tobacco: Never Alcohol Use Standard Drinks/Week Comments No 0 (1 standard drink = 0.6 oz pur e alcohol) Sex and Gender Information Value Date Recorded Sex Assigned at Male 11/08/2020 4:27 PM CDT 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 No / Unsure 11/15/2020 7:45 AM CDT documented as of this encounter Plan of Treatment Not on file documented as of this encounter Visit Diagnoses Not on filedocumented in this encounter Additional Health Concerns Infection Onset Date Last Indicated Resolved Time Rule Out COVID-19 07/17/2021 07/17/2021 07/17/2021 2:53 PM CDT documented as of this encounter Care Teams Creative Recruiter Relationship Specialty Start Date End Date John Sellers MD PCP - General Family Medicine - Sports Medicine 04/03/17 11/16/[address] [address] PCP - General 11/17/23 Ricci Carnes PA-C [address] [place] [address] Assigned Heart and Vascular Provider 06/20/20 04/25/22 Ryne Pearce MD [address] [address] Urology 07/12/21 Lore Canales, PharmD [address] [place] [address] [place] [address] Pharmacist Pharmacist 09/10/21 Lore Canales, DarrenD [address] [facility] [place] [address] Assigned MTM Pharmacist 09/14/21 12/20/21 Ryne Pearce MD [address] [facility] [place] [address] Assigned Surgical Provider 09/28/21 03/27/23 Lore Canales, DarrenD [address] [address] Assigned MTM Pharmacist 01/01/22 04/03/23 Mela Delgado APRN WATER FITNESS INSTRUCTOR [address] [place] [address] Assigned Heart and Vascular Provider 04/26/22 08/15/22 Ricci Canres PA-C [address] [place] [address] Physician Housekeeping Laundry Worker Cardiovascular Disease 07/17/22 Zac Cifuentes MD [address] [place] [address] Cardiovascular Disease 08/21/22 Ricci Carnes PA-C [address] [place] [address] Assigned Heart and Vascular Provider 08/16/22 09/05/22 Zac Cifuentes MD [address] [place] [address] Assigned Heart and Vascular Provider 09/06/22 03/27/24 documented as of this encounter
--- OUTSIDE RECORDS SUMMARY | 2024-06-24 20:37 | XMS_ITS | Encounter Summary ---
Author Organization [place] Address [address] [place] [address] Care Team Providers Care Office Mail Clerk Name Role Phone Ramesh Perez MD Primary Care Provider Tuthill Jama Mcintosh MD Primary Care Provider + [phone] [facility] Primary Care Provider + John Sellers MD Primary Care Provider [phone] Bronwyn Bunch DO Unavailable + Carnes, Anamyriam E PA-C Unavailable +[phone] Ryne Pearce MD Unavailable +[phone] Lore Canales PharmD Unavailable +[phone] Lore Canales PharmD Unavailable +[phone] Ryne Pearce MD Unavailable +[phone] Lore Canales PharmD Unavailable +[phone] Mela Delgado APRN, CNP Unavailable + [phone] Carnes, Anamyriam E PA-C Unavailable +[phone] Zac Cifuentes MD Unavailable + 5 Carnes, Ricci E PA-C Unavailable +[phone] Zac Cifuentes MD Unavailable + 5 [facility] Primary Care Provider Encounter Details Date Type Department Care Team (Late st Contact Info) Description 02/20/2012 Telephone [facility] Behavioral Health Intake [address] [place] [address] Generic, Behavioral Intake, Social History Tobacco Use Types Packs/Day Years Used Date Smoking Tobacco: Never Alcohol Use Standard Drinks/Week Comments No 0 (1 standard drink = 0.6 oz pur e alcohol) Sex and Gender Information Value Date Recorded Sex Assigned at Male 11/08/2020 4:27 PM CDT 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 B: dx: bipolar d/o. Pt reports he has hx of 4 inpt psych admits at [facility] and hx of being under a commitment. Denies drug use. Stressors are his mom had a heart attack 3 wks ago and he had to put his dog down 2 days ago. Reports enuresis for past few days. Says he feels he is decompensating and feels manic. 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 Says he feels confused and that he has short term memory prob's. A: appears manic in bec, hyperverbal, denies si, denies ross's, pressured speech, coop, vol R: #32/majeski accepted for herself mbw [place] DEVELOPER documented in this encounter Plan of Treatment Not on file documented as of this encounter Visit Diagnoses Not on filedocumented in this encounter Additional Health Concerns Infection Onset Date Last Indicated Resolved Time Rule Out COVID-19 07/17/2021 07/17/2021 07/17/2021 2:53 PM CDT documented as of this encounter Care Teams Office Mail Clerk Relationship Specialty Start Date End Date Ramesh Perez MD PCP - General Family Practice 02/06/12 05/30/12 Jama Anthony MD [address] [place] [address] PCP - General Internal Medicine 05/31/12 04/06/13 [facility] [address] [place] [phone] PCP - General 04/07/13 04/02/17 [place] [address] [place] [phone] PCP - General Family Medicine - Sports Medicine 04/03/17 11/16/23 [facility] [address] [place] [address] PCP - General 11/17/23 Bronwyn Bunch DO [id number] [place] [address] Assigned Heart and Vascular Provider 01/27/20 06/19/20 Ricci Carnes PA-C [address] [place] [address] Assigned Heart and Vascular Provider 06/20/20 04/25/22 Ryne Pearce MD [address] [address] Urology 07/12/21 Lore Canales, PharmD [address] [place] [address] Pharmacist Pharmacist 09/10/21 Lore Canales, DarrenD [address] [place] [address] Assigned MTM Pharmacist 09/14/21 12/20/21 Ryne Pearce MD [address] [place] [address] Assigned Surgical Provider 09/28/21 03/27/23 Lore Canales, DarrenD [address] [address] Assigned MTM Pharmacist 01/01/22 04/03/23 Mela Delgado APRN DISHING MACHINE OPERATOR [address] [place] [address] Assigned Heart and Vascular Provider 04/26/22 08/15/22 Ricci Carnes PA-C [address] [place] [address] Physician Parts Driver Cardiovascular Disease 07/17/22 Zac Cifuentes MD [address] [place] [address] Cardiovascular Disease 08/21/22 Ricci Carnes PA-C [address] [place] [address] Assigned Heart and Vascular Provider 08/16/22 09/05/22 Zac Cifuentes MD [address] [place] [address] Assigned Heart and Vascular Provider 09/06/22 03/27/24 documented as of this encounter
--- OUTSIDE RECORDS SUMMARY | 2024-06-24 20:37 | XMS_ITS | Encounter Summary ---
Author Organization [facility] Address [address] [place] [address] Care Team Providers Care Electronic Warfare Technical Name Role Phone John Sellers MD Primary Care Provider Carnes, Anah E PA-C Unavailable +- [phone] Ryne Pearce MD Unavailable [phone] Lore Canales PharmD Unavailable Lore Canales PharmD Unavailable +[phone] Ryne Pearce MD Unavailable +[phone] Lore Canales PharmD Unavailable +[phone] Mela Delgado APRN ALTERATIONS EXPERT Unavailable +[phone] Carnes, Anah E PA-C Unavailable + 5000 Zac Cifuentes MD Unavailable +[phone] Carnes, Anamyriam E PA-C Unavailable + 5000 Zac Cifuentes MD Unavailable +[phone] [facility] [place] Primary Care Provider Encounter Details Date Type Department Care Team (Late st Contact Info) Description 12/21/2020 [facility] Medical Advice [facility] Sleep [address] [address] Teresa Murdock MA Social History Tobacco Use Types Packs/Day Years Used Date Smoking Tobacco: Never Smokeless Tobacco: Never Alcohol Use Standard Drinks/Week Comments No 0 (1 standard drink = 0.6 oz pur e alcohol) Sex and Gender Information Value Date Recorded Sex Assigned at Male 11/08/2020 4:27 PM CDT 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 No / Unsure 12/21/2020 9:33 AM CDT documented as of this encounter Plan of Treatment Not on file documented as of this encounter Visit Diagnoses Not on filedocumented in this encounter Additional Health Concerns Infection Onset Date Last Indicated Resolved Time Rule Out COVID-19 07/17/2021 07/17/2021 07/17/2021 2:53 PM CDT documented as of this encounter Care Teams Electronic Warfare Technical Relationship Specialty Start Date End Date John Sellers MD PCP - General Family Medicine - Sports Medicine 04/03/17 11/16/[address] [address] PCP - General 11/17/23 Ricci Carnes PA-C [address] [place] [address] Assigned Heart and Vascular Provider 06/20/20 04/25/22 Ryne Pearce MD [address] [address] Urology 07/12/21 Lore Canales, PharmD [address] [place] [address] [place] [address] Pharmacist Pharmacist 09/10/21 Lore Canales, DarrenD [address] [facility] [place] [address] Assigned MTM Pharmacist 09/14/21 12/20/21 Ryne Pearce MD [address] [facility] [place] [address] Assigned Surgical Provider 09/28/21 03/27/23 Lore Canales, DarrenD [address] [address] Assigned MTM Pharmacist 01/01/22 04/03/23 Mela Delgado APRN ALTERATIONS EXPERT [address] [place] [address] Assigned Heart and Vascular Provider 04/26/22 08/15/22 Ricci Carnes PA-C [address] [place] [address] Physician Capture Manager Cardiovascular Disease 07/17/22 Zac Cifuentes MD [address] [place] [address] Cardiovascular Disease 08/21/22 Ricci Carnes PA-C [address] [place] [address] Assigned Heart and Vascular Provider 08/16/22 09/05/22 Zac Cifuentes MD [address] [place] [address] Assigned Heart and Vascular Provider 09/06/22 03/27/24 documented as of this encounter
--- OUTSIDE RECORDS SUMMARY | 2024-06-24 20:37 | XMS_ITS | Clinical Summary ---
Author Organization [facility] Address [address] [place] [address] Care Team Providers Care Pulpwood Buyer Name Role Phone Ryne Pearce MD Unavailable [phone] Lore CanalesD Unavailable [phone] Ricci Carnes PA-C Unavailable [phone] Zac Cifuentes MD Unavailable [phone] Olivier, Cristy Grady Primary Care Provider Allergies Active Allergy Reactions Criticality Noted Date Comments Divalproex Sodium Other (See Comments) 07/10/19 12 Weight gain and excessive sedation Wallace Palpitations Low 05/17/2008 Diarrhea, nausea, Morphine Itching 07/17/2021 Valproic Acid 10/23/2009 Depakote Weight gain Medications multivitamin, therapeutic with minerals (THERA-VIT-M) TABSIndications :Hypovitaminosi s Take 1 tablet by mouth daily. 30 each 11 3 Active famotidine (PEPCID) 20 MG tabletIndicatio ns:GERD (gastroesophage al reflux disease) Take 1 tablet (20 mg) by mouth 2 times daily 90 tablet 2 3 Active tamsulosin (FLOMAX) 0.4 MG capsule Take 0.4 mg by mouth every morning Active cholecalciferol (VITAMIN D3) 5000 units (125 mcg) capsule Take 5,000 Units by mouth At Bedtime Active omeprazole (PRILOSEC) [address] capsule Take 20 mg by mouth every morning Active ARIPiprazole (ABILIFY) 15 MG tabletIndicatio ns:Bipolar I disorder (H) Take 1 tablet (15 mg) by mouth every morning 30 tablet 2 Active busPIRone (BUSPAR) 5 MG tabletIndicatio ns:Bipolar I disorder (H) Take 1 tablet (5 mg) by mouth 3 times daily 90 tablet 2 Active Additional Information Patient taking differently:5 mg Oral 3 TIMES DAILY,2 tabs AM, 1 tab PM, Informant: Self, Reported on 06/05/2022 psyllium (METAMUCIL/KONS YL) 58.6 % powder Take 3 Tablespoonful by mouth every morning Active aspirin (ASA) 81 MG chewable tablet Take 81 mg by mouth daily Resume usual dose of aspirin after finishing increased dose prescribed after surgery 2 Active carBAMazepine (TEGRETOL) 200 MG tabletIndicatio ns:Bipolar affective disorder, currently manic, moderate (H) Take 2 tablets (400 mg) by mouth 2 times daily 2 Active celecoxib (CELEBREX) 200 MG capsuleIndicati ons:Status post total hip replacement, left Take 1 capsule (200 mg) by mouth daily Do not take within 6 hours of ibuprofen (MOTRIN, ADVIL) or ketorolac (TORADOL) if prescribed. 42 capsule 2 Active Additional Information Patient not taking.Reported on 09/02/2022 polyethylene glycol (MIRALAX) 17 GM/Dose powderIndicatio ns:Status post total hip replacement, left Take 17 g by mouth daily 510 g 2 Active Additional Information Patient taking differently:17 g OralDAILY WITH SUPPER, Reported on 06/05/2022 nystatin (MYCOSTATIN) 724423 UNIT/GM external powder Apply topically 2 times daily as needed Active sodium chloride 1 GM tablet Take 1 g by mouth daily Active acetaminophen (TYLENOL) 500 MG tablet Take 500 mg by mouth 2 times daily Active Ascorbic Acid (VITAMIN C ADULT GUMMIES PO) Take 1 chew tab by mouth daily Active LORazepam (ATIVAN) 1 MG tablet Take 1 mg by mouth every 4 hours as needed for anxiety TAKE UP TO TWO TIMES DAILY 3 Active OLANZapine zydis (ZYPREXA) 5 MG ODT Take 5 mg by mouth At Bedtime Active senna-docusate (SENOKOT-S/BREN COLACE) 8.6-50 MG tablet Take 1 tablet by mouth 2 times daily Active rosuvastatin (CRESTOR) 20 MG tabletIndicatio ns:Coronary artery disease involving [place] coronary artery of [place] heart without angina pectoris Take 1 tablet (20 mg) by mouth daily 30 tablet 3 Active lisinopril (ZESTRIL) 10 MG tablet Take 1 tablet (10 mg) by mouth daily 3 Active metoprolol tartrate (LOPRESSOR) 50 MG tabletIndicatio ns:Palpitations ,PVC's (premature ventricular contractions) Take 1 tablet (50 mg) by mouth 2 times daily 180 tablet 3 3 Active COMPRESSION STOCKINGSIndica tions:Deep vein thrombosis (DVT) of left lower extremity, unspecified chronicity, unspecified vein (H) 1 each daily 1 each 1 3 Active Active Problems Problem Noted Date Diagnosed Date Generalized muscle weakness 12/09/2021 Pain of left lower leg 12/09/2021 Acute deep vein thrombosis ( DVT) of proximal vein of left lower extremity 12/09/2021 Anemia, unspecified type 12/09/2021 Status post left hip replacement 12/04/2021 Bipolar affective disorder, currently manic, mod erate 08/29/2021 Hyponatremia 08/29/2021 Overview (09/04/2021): 08/26/2021 at [facility]: Sodium was 123, then Sodium was 125. Arthritis of left knee 09/14/2019 Overview (09/04/2021): September 2019: [facility] Left knee Injection PAC (premature atrial contraction) 06/19/2019 Overview (09/04/2021): June 2019: see [facility] consult note, had Stress test and monitor, only found PAC and PVC. Screening for colon cancer 09/27/2017 Overview (09/04/2021): September 2017: screening Colonoscopy at [facility]. Repeat recommended 10 years, so 2027. Color vision deficiencies 08/10/2017 Myopia of both eyes with astigmatism and presbyo breanna 08/10/2017 Internal hemorrhoid, bleeding 04/07/2017 Overview (09/04/2021): March 2017: [facility] emergency room, anoscopy showed Internal bleeding hemorrhoid. Hip pain, left 03/16/2017 Overview (09/04/2021): [facility] has documentation of a left intra-articular hip injection on May 07, 2016. Retention of urine 08/04/2016 Overview (09/04/2021): Saw urology 08/01/16. On flomax, [facility] follow up yearly per note 01/2017. Obesity, morbid, BMI 50 or higher 01/25/2016 GERD (gastroesophageal reflux disease) 3 Severe manic bipolar 1 disorder with psychotic b ehavior 04/12/2012 Molly 03/05/2012 MENTAL HEALTH 02/20/2012 Fall 02/08/2012 Intractable back pain 02/08/2012 Leg pain, bilateral 02/08/2012 Contusion 02/06/2012 CARDIOVASCULAR SCREENING; LDL GOAL LESS THAN 160 02/03/2010 Bipolar I disorder 10/23/2009 Primary hypertension 10/23/2009 Overview (09/04/2021): Dec 2020: Triamterene/hydrochlorothiazide decreased to half pill by heart doctor. Anxiety state 10/23/2009 Immunizations Name Administration Dates Next Due Influenza (IIV3) PF 01/05/2012 TD,PF 7+ (Tenivac) 03/17/2006 TDAP (Adacel,Boostrix) 11/17/2023 Family History Medical History Relation Comments Cancer Father Bladder cancer Diabetes Father Gastrointestinal Disease Mother GERD Relation Status Comments Father Mother Social History Tobacco Use Types Packs/Day Years Used Date Smoking Tobacco: Never Smokeless Tobacco: Never Tobacco Cessation:Counseling Given: Not Answered Alcohol Use Standard Drinks/Week Comments No 0 (1 standard drink = 0.6 oz pur e alcohol) PHQ-2 Answer Date Recorded PHQ-2 Score 0 08/14/2022 Adolescent Education Answer Date Record ed Getting School Help Needed Not on file 01/18 Sex and Gender Information Value Date Recorded Sex Assigned at Male 11/08/2020 4:27 PM CDT Legal Sex Male 2:58 AM BUILDING ASSOCIATE Gender Identity Male 11/08/2020 4:27 PM CDT Sexual Orientation Straight 11/08/2020 4: 27 PM CDT Last Filed Vital Signs Vital Sign Reading Time Taken Comments Blood Pressure 171/88 11/17/2023 9:45 PM CDT Pulse 93 11/17/2023 9:45 PM CDT Temperature 36.6 C (97.8 F) 11/17/2023 10:46 PM CDT Respiratory Rate 18 11/17/2023 8:59 PM CDT Oxygen Saturation 97% 11/17/2023 9:45 PM CDT Inhaled Oxygen Concentration - - Weight 138.3 kg (305 lb) 09/02/2022 10:40 AM CDT Height 171.5 cm (5' 7.5) 09/02/2022 10:40 AM CD T Body Mass Index 47.06 09/02/2022 10:40 AM CDT Plan of Treatment Health Maintenance Due Date Last Done Comments ADVANCE CARE PLANNING 1965 ANNUAL REVIEW OF HM ORDERS 1967 CT COLONOGRAPHY 1967 FIT 1965 FLEX SIG 1965 sDNA (Cologuard) 1965 HEPATITIS B IMMUNIZATION (1 of 3 - 19+ 3-dose series) 07/20/1986 Pneumococcal Vaccine: 50+ Years (1 of 1 - PCV) 07/20/2017 ZOSTER IMMUNIZATION (1 of 2) 07/20/2017 LIPID 06/07/2023 06/06/2022, 03/0 05/2022, 08/30/2021 MEDICARE ANNUAL WELLNESS VISIT 07/17/2023 07/16/2022, 01/17/2021, 01/09/2020 COVID-19 Vaccine ( season) 2023 04/02/2022, 11/12/2021, 02/06/2021, Additional history exists INFLUENZA VACCINE (#1) 2023 , 01/17/2021, 01/09/2020, Additional history exists PHQ-2 (once per calendar year) 2024 08/14/2022 BMP 11/16/2024 11/17/2023, 03/0 06/2022, 06/05/2022, Additional history exists DIABETES SCREENING 11/16/2026 11/17/2023, 0 06/06/2022, 06/05/2022, Additional history exists COLONOSCOPY 09/22/2027 09/21/2017 COLORECTAL CANCER SCREENING 09/22/2027 DTAP/TDAP/TD IMMUNIZATION (3 - Td or Tdap) 11/16/2033 11/17/2023, 02/18/2016, 03/17/2006, Additional history exists HIV SCREENING Completed 03/16/2017 HEPATITIS C SCREENING Completed 05/16/2022 HPV IMMUNIZATION Aged Out No longer e ligible based on patient's age to complete this topic MENINGITIS IMMUNIZATION Aged Out No l onger eligible based on patient's age to complete this topic Medical Devices Implanted Type Area Train Brake Operator Device Identifier Shelf Expiration Date Model / Serial / Lot Imp [place] Hole Eliminator Hip Depuy Duraloc 1246-03-000 - [id number] Implanted:Qty : 1 on 12/04/2021 by Hudson Vences MD at [facility] Metallic Hardware/An chor Left: Hip [employer] [id number] 09/04/2031 [id number] / / [id number] Imp Scr Bone Can Olvin 6.5x35mm 1217-35-500 - [id number] Implanted:Qty : 1 on 12/04/2021 by Hudson Vences MD at [facility] Metallic Hardware/An chor Left: Hip [employer] [id number] 08/04/2031 [id number] / / [id number] Imp Scr Bone Can Olvin 6.5x25mm 1217-25-500 - [id number] Implanted:Qty : 1 on 12/04/2021 by Hudson Vences MD at [facility] Metallic Hardware/An chor Left: Hip [employer] [id number] 08/04/2031 [id number] / / [id number] Imp Shell Acet Depuy [place] Gription 58mm [id number] - [id number] Implanted:Qty : 1 on 12/04/2021 by Hudson Vences MD at [facility] Total Joint Component/I nsert Left: Hip [employer] [id number] 10/04/2031 [id number] / / [id number] Imp Insert Hip Depuy [place] Altrx 36mm +4 1221-36-458 - [id number] Implanted:Qty : 1 on 12/04/2021 by Hudson Vences MD at [facility] Total Joint Component/I nsert Left: Hip [employer] [id number] 10/03/2026 1221-36-458 / / [id number] Imp Stem Fem Depuy Actis Std Collar Tpr Sz 7mm 1010-11-070 - [id number] Implanted:Qty : 1 on 12/04/2021 by Hudson Vences MD at [facility] Total Joint Component/I nsert Left: Hip [employer] [id number] 05/06/2031 [id number] / / [id number] Imp Head Femoral Depuy Ceramic 36mm +1.5mm 1365-36-310 - [id number] Implanted:Qty : 1 on 12/04/2021 by Hudson Vences MD at [facility] Total Joint Component/I nsert Left: Hip [employer] [id number] 10/03/2026 [id number] / / [id number] Procedures Procedure Name Priority Date/Time Associated Diagnosis Comments BASIC METABOLIC PANEL STAT 11/17/2023 9:22 PM CDT LIPID PROFILE Add-On 06/06/2022 3:16 AM BUILDING ASSOCIATE Coronary artery disease involving [place] coronary artery of [place] heart without angina pectoris from Last 3 Months or Most Recently Relevant to Health Maintenance Results * (ABNORMAL) Basic metabolic panel (11/17/2023 9:22 PM CDT) Sodium 138 135 - 145 mmol/L 11/17/2023 9:44 PM CDT [facility] Potassium 4.2 3.4 - 5.3 mmol/L 11/17/2023 9:44 PM CDT [facility] Chloride 100 98 - 107 mmol/L 11/17/2023 9:44 PM CDT [facility] Carbon Dioxide (CO2) 24 22 - 29 mmol/L 11/17/2023 9:44 PM CDT [facility] Anion Gap 14 7 - 15 mmol/L 11/17/2023 9:44 PM CDT [facility] Urea Nitrogen 13.5 6.0 - 20.0 mg/dL 11/17/2023 9:44 PM CDT [facility] Creatinine 0.83 0.67 - 1.17 mg/dL 11/17/2023 9:44 PM CDT [facility] GFR Estimate >90 >60 mL/min/1.7 3m2 11/17/2023 9:44 PM CDT [facility] Comment:eGFR calculated us2020 CKD-EPI equation. Calcium 8.8 8.8 - 10.4 mg/dL 11/17/2023 9:44 PM CDT [facility] Comment:Reference intervals for this test were updated on 10/20/2023 to reflect our healthy population more accurately. There may be differences in the flagging of prior results with similar values performed with this method. Those prior results can be interpreted in the context of the updated reference intervals. Glucose 108(H) 70 - 99 mg/dL 11/17/2023 9:44 PM CDT [facility] Blood BLOOD SPECIMEN / Unknown Venipuncture / Unknown 11/17/2023 9:22 PM CDT 11/17/2023 9:26 PM CDT Kenny Leal MD LAB - BLOOD ORDERABLES Fi nal Result LABORATORY [facility] [address] Lab (1st floor, no room number) [place] [address], [place] * (ABNORMAL) Lipid Profile (06/06/2022 3:16 AM BUILDING ASSOCIATE) Cholesterol 163 <200 mg/dL 06/06/2022 5:25 PM BUILDING ASSOCIATE [facility] Triglycerides 167(H) <150 mg/dL 06/06/2022 5:25 PM BUILDING ASSOCIATE [facility] Direct Measure HDL 39(L) >=40 mg/dL 06/06/2022 5:25 PM BUILDING ASSOCIATE [facility] LDL Cholesterol Calculated 91 <=100 mg/dL 06/06/2022 5:25 PM BUILDING ASSOCIATE [facility] Non HDL Cholesterol 124 <130 mg/dL 06/06/2022 5:25 PM BUILDING ASSOCIATE [facility] Blood STRUCTURE OF LEFT HAND / Unknown Venipuncture / Unknown 06/06/2022 3:16 AM BUILDING ASSOCIATE 06/06/2022 3:28 AM BUILDING ASSOCIATE Narrative [facility] - 06/06/2022 5:25 PM BUILDING ASSOCIATE Cholesterol Desirable: <200 mg/dL Triglycerides Normal: Less than 150 mg/dL Borderline High: 150-199 mg/dL High: 200-499 mg/dL Very High: Greater than or equal to 500 mg/dL Direct Measure HDL Female: Greater than or equal to 50 mg/dL Male: Greater than or equal to 40 mg/dL LDL Cholesterol Desirable: <100mg/dL Above Desirable: 100-129 mg/dL Borderline High: 130-159 mg/dL High: 160-189 mg/dL Very High: >= 190 mg/dL Non HDL Cholesterol Desirable: 130 mg/dL Above Desirable: 130-159 mg/dL Borderline High: 160-189 mg/dL High: 190-219 mg/dL Very High: Greater than or equal to 220 mg/dL us Callum Samayoa MD LAB - BLOOD ORDERAB LES Final Result [facility] [address] [facility], [address] [place] [address], [place] [phone] from Last 3 Months or Most Recently Relevant to Health Maintenance Insurance [id number] [address] MEDICA ACCESSABILITY ENHANCED Member Subscriber Plan / Payer ( fective 2021-Present) Name:Alysia Kraus Relation to Subscriber:Self Name:Alysia Kraus Payer ID:[id number] (NAIC) Type:HMO Address: [address] [address] [id number] MEDICA ACCESSABILITY ENHANCED [facility] DUAL * Guarantor: Alysia Kraus Account Type Relation to Patient Date of Phone Billing Address Medication Therapy Self [address] [place] [address] MEDICA ACCESSABILITY ENHANCED Advance Directives For more information, please contact: [phone] * Full Code (Latest Code Status on File) Date Activated Date Inactivated Comments 06/05/2022 11:39 PM 06/07/2022 5:35 AM All basic and advanced life-sustaining interventions are performed as appropriate Question Answer Comments Code status determined by: Discussion with patie nt/ legal decision maker * Full Code Date Activated Date Inactivated Comments 12/10/2021 12:36 AM 12/13/2021 6:55 PM All basic and advanced life-sustaining interventions are performed as appropriate Question Answer Comments Code status determined by: Discussion with patie nt/ legal decision maker * Full Code Date Activated Date Inactivated Comments 12/04/2021 4:17 PM 12/05/2021 1:33 PM All basic and advanced life-sustaining interventions are performed as appropriate Question Answer Comments Code status determined by: Unable to det ermine; FULL CODE until documents or legal decision maker available * Full Code Date Activated Date Inactivated Comments 08/29/2021 9:21 PM 09/05/2021 2:51 PM All basic and advanced life-sustaining interventions are performed as appropriate Question Answer Comments Code status determined by: Discussion with patie nt/ legal decision maker * Full Code Date Activated Date Inactivated Comments 04/12/2012 4:26 PM 05/25/2012 3:12 PM Care Teams Pulpwood Buyer Relationship Specialty Start Date End Date [facility] [address] [place] [address] PCP - General 11/17/23 Ryne Pearce MD [address] [place], [place] [address] Urology 07/12/21 Lore Canales, PharmD [address] [facility] [place], [place] [address] Pharmacist Pharmacist 09/10/21 Ricci Carnes PA-C [address] [place], [place] [address] Physician Vending Machine Servicer Cardiovascular Disease 07/17/22 Zac Cifuentes MD [address] [place], [place] [address] Cardiovascular Disease 08/21/22
--- OUTSIDE RECORDS SUMMARY | 2024-06-24 20:37 | XMS_ITS | Encounter Summary ---
Author Organization [facility] Address [address] [place] [address] Care Team Providers Care Violin Repairer Name Role Phone John Sellers MD Primary Care Provider Trice, Ricci Esparza PA-C Unavailable [phone] Ryne Pearce MD Unavailable [phone] Lore Canales PharmD Unavailable [phone] Ryne Pearce MD Unavailable [phone] Lore Canales PharmD Unavailable [phone] Mela Delgado APRN PICKER Unavailable [phone] Carnes, Ricci E PA-C Unavailable + [phone] Zac Cifuentes MD Unavailable [phone] Carnes, Ricci E PA-C Unavailable [phone] Zac Cifuentes MD Unavailable [phone] [facility] [place] Primary Care Provider Encounter Details Date Type Department Care Team (Late st Contact Info) Description 04/22/2022 MyC Medical Advice [facility] [place] [address] [address] Yahaira Freeman Social History Tobacco Use Types Packs/Day Years Used Date Smoking Tobacco: Never Smokeless Tobacco: Never Alcohol Use Standard Drinks/Week Comments No 0 (1 standard drink = 0.6 oz pur e alcohol) Sex and Gender Information Value Date Recorded Sex Assigned at Male 11/08/2020 4:27 PM CDT Legal Sex Male 2:58 AM BUSINESS SERVICES SALES AGENT Gender Identity Male 11/08/2020 4:27 PM CDT Sexual Orientation Straight 11/08/2020 4: 27 PM CDT documented as of this encounter Plan of Treatment Not on file documented as of this encounter Visit Diagnoses Not on filedocumented in this encounter Care Teams Violin Repairer Relationship Specialty Start Date End Date John Sellers MD PCP - General Family Medicine - Sports Medicine 04/03/17 11/16/23 [facility] [address] [place], [place] [address] [address] PCP - General 11/17/23 Ricci Carnes PA-C [address] [place] [address] Assigned Heart and Vascular Provider 06/20/20 04/25/22 Ryne Pearce MD [address] [facility] [address] [place] [address] Urology 07/12/21 Lore Canales, PharmD [address] [place], [place] [address] [place] [address] Pharmacist Pharmacist 09/10/21 Ryne Pearce MD [address] [place] [address] Assigned Surgical Provider 09/28/21 03/27/23 Lore Canales, PharmD [address] [place], [place] [address] [place] [address] Assigned MTM Pharmacist 01/01/22 04/03/23 Mela Delgado APRN PICKER [address] [place] [address] Assigned Heart and Vascular Provider 04/26/22 08/15/22 Ricci Carnes PA-C [address] [place] [address] Physician Medical Appointment Scheduler Cardiovascular Disease 07/17/22 Zac Cifuentes MD [address] [place] [address] MD Cardiovascular Disease 08/21/22 Ricci Carnes PACass [address] [place] [address] Assigned Heart and Vascular Provider 08/16/22 09/05/22 Zac Cifuentes MD [address] [place] [address] Assigned Heart and Vascular Provider 09/06/22 03/27/24 documented as of this encounter
--- OUTSIDE RECORDS SUMMARY | 2024-06-24 20:37 | XMS_ITS | Encounter Summary ---
Author Organization [facility] Address [address] [place] [address] Care Team Providers Care Sales Engineering Manager Name Role Phone John Sellers MD Primary Care Provider [phone] Trice, Ricci E PA-C Unavailable [phone] Ryne Pearce MD Unavailable [phone] Lore Canales PharmD Unavailable [phone] Lore Canales PharmD Unavailable [phone] Ryne Pearce MD Unavailable [phone] Lore Canales PharmD Unavailable [phone] Mela Delgado APRN, CNP Unavailable [phone] Carnes, Ricci E PA-C Unavailable + [phone] Zac Cifuentes MD Unavailable [phone] Carnes, Ricci E PA-C Unavailable + [phone] Zac Cifuentes MD Unavailable [phone] [facility] [place] Primary Care Provider Reason for Visit * Reason Onset Date Comments Appointment 09/24/2021 Next-business da y appt. Encounter Details Date Type Department Care Team (Late st Contact Info) Description 09/24/[address] [phone] Mela Delgado, EPIC AMBULATORY ANALYST CURB SUPERVISOR [address] [place] [address] Appointment ( appt.) Social History Tobacco Use Types Packs/Day Years Used Date Smoking Tobacco: Never Smokeless Tobacco: Never Alcohol Use Standard Drinks/Week Comments No 0 (1 standard drink = 0.6 oz pur e alcohol) Sex and Gender Information Value Date Recorded Sex Assigned at Male 11/08/2020 4:27 PM CDT Legal Sex Male 2:58 AM MARKETING SUPPORT COORDINATOR Gender Identity Male 11/08/2020 4:27 PM CDT Sexual Orientation Straight 11/08/2020 4: 27 PM CDT COVID-19 Exposure Response Date Recorded In the last 10 days, have yo u been in contact with someone who was confirmed or suspected to have Coronavirus/COVID-19? No / Unsure 09/25/2021 12:17 PM CDT documented as of this encounter Miscellaneous Notes * Telephone Encounter - Juju Chandler - 09/24/2021 4:21 PM CDT [facility] Call Center Phone Message May a detailed message be left on voicemail: yes Reason for Call: Other: Aguila is scheduled tomorrow with Mela Delgado at 12:30 for palpitations/heart flutter concerns. He has been experiencing this on and off the past week or so and wanted to be seen daryl. Sending high priority TE per scheduling - clinic protocol. Action Taken: Other: Cardiology Travel Screening: Not Applicable documented in this encounter Plan of Treatment Not on file documented as of this encounter Visit Diagnoses Not on filedocumented in this encounter Care Teams Sales Engineering Manager Relationship Specialty Start Date End Date John Sellers MD PCP - General Family Medicine - Sports Medicine 04/03/17 11/16/23 [facility], Cristy Grady [address] [place] [address] PCP - General 11/17/23 Ricci Carnes PA-C [address] [facility] [place] [address] Assigned Heart and Vascular Provider 06/20/20 04/25/22 Ryne Pearce MD [address] [facility] [address] [place] [address] Urology 07/12/21 Lore Canales, PharmD [address] [place] [address] Pharmacist Pharmacist 09/10/21 Lore Canales, PharmD [address] [place] [address] Assigned MTM Pharmacist 09/14/21 12/20/21 Ryne Pearce MD [address] [facility] [address] [place] [address] Assigned Surgical Provider 09/28/21 03/27/23 Lore Canales, PharmD [address] [place] [address] Assigned MTM Pharmacist 01/01/22 04/03/23 Mela Delgado APRN CURB SUPERVISOR [address] [place] [address] Assigned Heart and Vascular Provider 04/26/22 08/15/22 Ricci Carnes PA-C [address] [facility] [place] [address] Physician Remote Operations Producer Cardiovascular Disease 07/17/22 Zac Cifuentes MD [address] [facility] [address] [place] [address] Cardiovascular Disease 08/21/22 Ricci Carnes, PA-C [address] [place] [address] Assigned Heart and Vascular Provider 08/16/22 09/05/22 Zac Cifuentes MD [address] [facility] [address] [place] [id number] Assigned Heart and Vascular Provider 09/06/22 03/27/24 documented as of this encounter
--- OUTSIDE RECORDS SUMMARY | 2024-06-24 20:37 | XMS_ITS | Encounter Summary ---
Author Organization [facility] Address [address] [place] [address] Care Team Providers Care Jewel Oliving Machine Operator Name Role Phone John Sellers MD Primary Care Provider [phone] Carnes, Anamyriam E PA-C Unavailable [phone] Ryne Pearce MD Unavailable [phone] Lore Canales PharmD Unavailable [phone] Lore Canales PharmD Unavailable [phone] Ryne Pearce MD Unavailable [phone] Lore Canales PharmD Unavailable [phone] Mela Delgado APRN, CNP Unavailable [phone] Carnes, Anamyriam E PA-C Unavailable +[phone] Zac Cifuentes MD Unavailable + [phone] Carnes, Ricci E PA-C Unavailable + [phone] Zac Cifuentes MD Unavailable [phone] [facility] [place] Primary Care Provider Encounter Details Date Type Department Care Team (Late st Contact Info) Description 12/03/2021 Documentation Only INTERFACED REPORT Unknown, Provider Social History Tobacco Use Types Packs/Day Years Used Date Smoking Tobacco: Never Smokeless Tobacco: Never Alcohol Use Standard Drinks/Week Comments No 0 (1 standard drink = 0.6 oz pur e alcohol) Sex and Gender Information Value Date Recorded Sex Assigned at Male 11/08/2020 4:27 PM CDT Legal Sex Male 2:58 AM SEO SPECIALIST Gender Identity Male 11/08/2020 4:27 PM CDT Sexual Orientation Straight 11/08/2020 4: 27 PM CDT COVID-19 Exposure Response Date Recorded In the last 10 days, have yo u been in contact with someone who was confirmed or suspected to have Coronavirus/COVID-19? No / Unsure 12/04/2021 6:16 AM CDT documented as of this encounter Plan of Treatment Not on file documented as of this encounter Visit Diagnoses Not on filedocumented in this encounter Care Teams Jewel Oliving Machine Operator Relationship Specialty Start Date End Date John Sellers MD PCP - General Family Medicine - Sports Medicine 04/03/17 11/16/23 [address] [place] [address] PCP - General 11/17/23 Ricci Carnes, PAGiorgioC [address] [place] [address] Assigned Heart and Vascular Provider 06/20/20 04/25/22 Ryne Pearce MD [address] [address] Urology 07/12/21 Lore Canales, PharmD [address] [place] [address] [phone] Pharmacist Pharmacist 09/10/21 Lore Canales, PharmD [address] [place] [address] [phone] Assigned MTM Pharmacist 09/14/21 12/20/21 Ryne Pearce MD [address] [place], [place] [address] Assigned Surgical Provider 09/28/21 03/27/23 Lore Canales, PharmD [address] [place] [address] Assigned MTM Pharmacist 01/01/22 04/03/23 Mela Delgado, CIGARETTE INSPECTOR NEPHROLOGY SOCIAL WORKER [address] [place] [address] Assigned Heart and Vascular Provider 04/26/22 08/15/22 Ricci Carnes PA-C [address] [place] [address] Physician Shirt Closer Cardiovascular Disease 07/17/22 Zca Cifuentes MD [address] [place] [address] Cardiovascular Disease 08/21/22 Ricci Carnes PA-C [address] [place] [address] Assigned Heart and Vascular Provider 08/16/22 09/05/22 Zac Cifuentes MD [address] [place] [address] Assigned Heart and Vascular Provider 09/06/22 03/27/24 documented as of this encounter
--- OUTSIDE RECORDS SUMMARY | 2024-06-24 20:37 | XMS_ITS | Encounter Summary ---
Author Organization [facility] Address [address] [place] [address] Care Team Providers Care Integrated Logistics Operations Manager Name Role Phone John Sellers MD Primary Care Provider [phone] Trice, Anamyriam E PA-C Unavailable [phone] Ryne Pearce MD Unavailable [phone] Lore Canales PharmD Unavailable Lore Canales PharmD Unavailable [phone] Ryne Pearce MD Unavailable [phone] Lore Canlaes PharmD Unavailable [phone] Mela Delgado APRN MANAGER MEDIA Unavailable +[phone] Carnes, Anah E PA-C Unavailable + [phone] Zac Cifuentes MD Unavailable +[phone] Carnes, Anamyriam E PA-C Unavailable + [phone] Zac Cifuentes MD Unavailable +[phone] [facility] Primary Care Provider Reason for Visit * Reason Onset Date Comments MH/CD Inpatient 08/29/2021 Encounter Details Date Type Department Care Team ([facility] st Contact Info) Description 08/29/2021 Telephone [facility] Intake [address] [place] [address] Generic, Behavioral Intake, MH/CD Inpatient Social History Tobacco Use Types Packs/Day Years Used Date Smoking Tobacco: Never Smokeless Tobacco: Never Alcohol Use Standard Drinks/Week Comments No 0 (1 standard drink = 0.6 oz pur e alcohol) Sex and Gender Information Value Date Recorded Sex Assigned at Male 11/08/2020 4:27 PM CDT Legal Sex Male 2:58 AM SPLITTER HEAD Gender Identity Male 11/08/2020 4:27 PM CDT Sexual Orientation Straight 11/08/2020 4: 27 PM CDT COVID-19 Exposure Response Date Recorded In the last 10 days, have yo u been in contact with someone who was confirmed or suspected to have Coronavirus/COVID-19? No / Unsure 08/28/2021 4:00 AM CDT documented as of this encounter Miscellaneous Notes * Telephone Encounter - Jennifer Bradley - 08/29/2021 6:03 PM CDT R: 20 / Cristiane documented in this encounter Plan of Treatment Not on file documented as of this encounter Visit Diagnoses Not on filedocumented in this encounter Care Teams Integrated Logistics Operations Manager Relationship Specialty Start Date End Date John Sellers MD PCP - General Family Medicine - Sports Medicine 04/03/17 11/16/23 [facility] [address] [place] [address] PCP - General 11/17/23 Ricci Carnes PA-C [address] [facility] [place] [address] Assigned Heart and Vascular Provider 06/20/20 04/25/22 Ryne Pearce MD [address] [place] [id number] Urology 07/12/21 Lore Canales, PharmD [address] [address] Pharmacist Pharmacist 09/10/21 oLre Canales, PharmD [address] [place] [address] [address] Assigned MTM Pharmacist 09/14/21 12/20/21 Ryne Pearce MD [address] [place] [address] Assigned Surgical Provider 09/28/21 03/27/23 Lore Canales, DarrenD [address] [place] [address] [address] Assigned MTM Pharmacist 01/01/22 04/03/23 Mela Delgado APRN MANAGER MEDIA [address] [place] [address] Assigned Heart and Vascular Provider 04/26/22 08/15/22 Ricci Carnes PA-C [address] [address] Physician Specification Consultant Cardiovascular Disease 07/17/22 Zac Cifuentes MD [address] [place] [id number] Cardiovascular Disease 08/21/22 Ricci Carnes PA-C [address] [place] [id number] Assigned Heart and Vascular Provider 08/16/22 09/05/22 Zac Cifuentes MD [address] [facility] [address] [place] [address] Assigned Heart and Vascular Provider 09/06/22 03/27/24 documented as of this encounter
--- OUTSIDE RECORDS SUMMARY | 2024-06-24 20:37 | XMS_ITS | Clinical Summary ---
Author Organization [facility] Address [address] [place] [id number] Care Team Providers Care Power Transformer Repair Supervisor Name Role Phone Stefan Barron MD Unavailable [phone] Marko Bunch DO Unavailable [phone] Ignacio Mckeon MD Primary Care Provider [phone] Allergies Active Allergy Reactions Criticality Noted Date Comments Bee Venom Protein (Honey Bee) Edema 01/06/2022 Cephalexin Anaphylaxis High 12/23/2021 Divalproex Sodium *Unknown - Pt Doesn't Remember 10/23/2009 Depakote Weight gain [place] *Unknown 10/23/2009 Weight gain and thirst Morphine Itching 07/17/2021 Trihexyphenidyl Emotional Disturbance 04/17/2023 Feels really bad on this med. Valsartan Dizziness Medium 06/13/2022 Medications Blood Pressure Monitor (BLOOD PRESSURE KIT) With large adult cuff 1 Device 0 012 Active Walker - 4 wheelsIndications :Morbid obesity with BMI of 50.0-59.9, adult (HC),Arthritis of left hip,Impaired mobility Rollator walker( wheeled walker) rated to hold 360lbs. For home use. Length of need: 99. 1 Device 020 Active acetaminophen (TYLENOL) 325 mg tabletIndications :Pain Take 3 Tablets (975 mg) by mouth three times daily. Max acetaminophen dose: 4000mg in 24 hrs. 022 Active Graduated Compression StockingsIndicati ons:Acute deep vein thrombosis (DVT) of proximal vein of left lower extremity (HC),Left leg swelling For personal use. Length: thigh Strength: 16-20 mmHg Circumf in cm: For thigh: Ankle 29, Calf 44.5, Thigh 63, Thigh to Ankle length 55.5. 1 Packet 022 Active albuterol HFA (PRO-AIR; VENTOLIN; PROVENTIL) 90 mcg/actuation inhalerIndication s:SOB (shortness of breath) Inhale 2 Puffs by mouth every 4 hours if needed for Shortness Of Breath. 18 g 3 023 Active ARIPiprazole (ABILIFY) 20 mg tabletIndications :Bipolar I disorder (HC) Take 1 Tablet (20 mg) by mouth once daily. 90 Tablet 3 023 Active polyethylene glycoL (MIRALAX) 17 gram/scoop powderIndications :Other constipation Mix 1 scoop (17 g) in liquid then take by mouth once daily. 1530 g 3 023 Active nystatin powder (MYCOSTATIN) powderIndications :Fungal skin infection Apply 1 Strip topically to affected area(s) each time if needed (for fungal skin infection). 60 g 5 023 Active carBAMazepine (TegretoL) 200 mg tabletIndications :Bipolar I disorder (HC),Severe manic bipolar 1 disorder with psychotic behavior (HC) Take 2 Tablets (400 mg) by mouth two times daily. 360 Tablet 3 023 Active Ascorbic Gqok-Yvzceecba-Ee n (Emergen-C) 1,000 mg pwepIndications:W ellness examination Take 1,000 mg by mouth once daily. 60 Each 5 023 Active busPIRone (BUSPAR) 5 mg tabletIndications :Bipolar 1 disorder (HC) Take 1 Tablet (5 mg) by mouth three times daily. 270 Tablet 3 023 Active LORazepam (ATIVAN) 1 mg tabletIndications :Anxiety state Take 1 tablet by mouth twice daily as needed for anxiety 30 Tablet 024 Active EPINEPHrine (EPIPEN) 0.3 mg/0.3 mL auto-injectorIndi cations:Bee sting allergy Inject 0.3 mg (1 Pen) intramuscular each time if needed for Allergic Reaction. 2 Each 1 024 Active ondansetron (ZOFRAN) 4 mg tabletIndications :Nausea Take 1 Tablet (4 mg) by mouth every 8 hours if needed for Nausea/Vomiting. 30 Tablet 3 024 Active ipratropium (ATROVENT NASAL) 42 mcg (0.06 %) nasal sprayIndications: Environmental allergies INHALE 2 SPRAYS INTO AFFECTED NOSTRIL(S) THREE TIMES DAILY NEEDED FOR ALLERGY SYMPTOMS. 15 mL 024 Active OLANzapine (ZYPREXA ZYDIS) 5 mg disintegrating tabletIndications :Bipolar I disorder (HC) DISSOLVE 1 TABLET IN MOUTH IN THE MORNING 90 Tablet 024 Active tamsulosin 0.4 mg capsuleIndication s:Polyuria TAKE 1 CAPSULE BY MOUTH ONCE DAILY AFTER A MEAL FOR URINARY SYMPTOMS. DO NOT CRUSH OR CHEW. DO NOT ADMINISTER VIA FEEDING TUBE. 90 Capsule 1 025 Active omeprazole (PRILOSEC) 20 mg Delayed-Release capsuleIndication s:GERD without esophagitis TAKE 1 CAPSULE BY MOUTH ONCE DAILY BEFORE A MEAL FOR ACID REFLUX 90 Capsule 1 025 Active famotidine (PEPCID) 20 mg tabletIndications :GERD without esophagitis TAKE 1 TABLET BY MOUTH TWICE DAILY FOR ACID REFLUX. 90 Tablet 1 025 Active multivitamin (MVI) tabletIndications :Wellness examination Take 1 tablet by mouth once daily 90 Tablet 3 025 Active aspirin (ECOTRIN) 81 mg enteric coated tabletIndications :Primary hypertension TAKE 1 TABLET BY MOUTH ONCE DAILY WITH A MEAL 30 Tablet 025 Active lisinopriL (PRINIVIL; ZESTRIL) 10 mg tabletIndications :Primary hypertension Take 1 tablet by mouth once daily 30 Tablet 025 Active sennosides-docusa te (SENOKOT S) (8.6-50 mg) tabletIndications :Presence of left artificial hip joint TAKE 1 TO 2 TABLETS BY MOUTH 1 TO 2 TIMES DAILY NEEDED FOR CONSTIPATION 180 Tablet 025 Active metoprolol tartrate (LOPRESSOR) 50 mg tabletIndications :Primary hypertension Take 1 tablet by mouth twice daily 60 Tablet 025 Active sodium chloride 1,000 mg soluble tabletIndications :Hyponatremia Take 1 tablet by mouth once daily 30 Tablet 025 Active rosuvastatin (CRESTOR) 20 mg tabletIndications :Hyperlipidemia, unspecified hyperlipidemia type TAKE 1 TABLET BY MOUTH ONCE DAILY WITH EVENING MEAL 30 Tablet 025 Active cholecalciferol, Vitamin D3, 5,000 unit tab tabletIndications :Vitamin D deficiency Take 1 tablet by mouth once daily 30 Tablet 025 Active metoprolol tartrate (LOPRESSOR) 50 mg tabletIndications :Primary hypertension Take 1 Tablet (50 mg) by mouth two times daily. 180 Tablet 3 023 2024 Discontinued sodium chloride 1,000 mg soluble tabletIndications :Hyponatremia Take 1 tablet by mouth once daily 90 Tablet 024 2024 Discontinued multivitamin (MVI) tabletIndications :Wellness examination Take 1 Tablet by mouth once daily. 30 Tablet 025 2024 Discontinued lisinopriL (PRINIVIL; ZESTRIL) 10 mg tabletIndications :Primary hypertension Take 1 tablet by mouth once daily 30 Tablet 025 2024 Discontinued cholecalciferol, Vitamin D3, 5,000 unit tab tabletIndications :Vitamin D deficiency Take 1 tablet by mouth once daily 30 Tablet 025 2024 Discontinued aspirin (ECOTRIN) 81 mg enteric coated tabletIndications :Primary hypertension TAKE 1 TABLET BY MOUTH ONCE DAILY WITH A MEAL 30 Tablet 025 2024 Discontinued rosuvastatin (CRESTOR) 20 mg tabletIndications :Hyperlipidemia, unspecified hyperlipidemia type TAKE 1 TABLET BY MOUTH ONCE DAILY WITH EVENING MEAL 30 Tablet 025 2024 Discontinued sennosides-docusa te (SENOKOT S) (8.6-50 mg) tabletIndications :Presence of left artificial hip joint TAKE 1 TO 2 TABLETS BY MOUTH 1-2 TIMES DAILY NEEDED FOR CONSTIPATION 180 Tablet 025 2024 Discontinued Active Problems Problem Noted Date Diagnosed Date Pain and swelling of lower extremity 11/25/2023 Anticoagulation monitoring, INR range 2-3 2022 Hyperlipidemia, unspecified 06/25/2022 Overview (08/17/2022): 2022: Rosuvastatin (Crestor) started by [facility]??? DVT (deep venous thrombosis) 12/21/2021 Overview (11/25/2023): Dec 2021: in setting of Left total hip replacement. Acute deep vein thrombosis ( DVT) of proximal vein of left lower extremity 12/16/2021 Hyponatremia 08/29/2021 Overview (09/10/2021): 08/26/2021 at : Sodium was 123, then Sodium was 125. September 2021: During psychiatric hospitalization due to hyponatremia the triamterene hydrochlorothiazide medication was stopped. Bilateral shoulder region arthritis 12/26/2020 Overview (08/17/2021): Dec 2020: bilateral ultrasound guided Shoulder joint injections by [facility]. Apr 2021: bilateral ultrasound guided Shoulder joint injections by [facility]. August 2021: bilateral ultrasound guided Shoulder joint injections by [facility]. Arthritis of left knee 09/14/2019 Overview (09/14/2019): September 2019: [facility] Left knee Injection PAC (premature atrial contraction) 06/19/2019 Overview (06/19/2019): June 2019: see [facility] consult note, had Stress test and monitor, only found PAC and PVC. Screening for colon cancer 09/27/2017 Overview (09/27/2017): September 2017: screening Colonoscopy at [facility]. Repeat recommended 10 years, so 2027. Myopia of both eyes with astigmatism and presbyo breanna 08/10/2017 Color vision deficiencies 08/10/2017 Internal hemorrhoid, bleeding 04/07/2017 Overview (04/07/2017): March 2017: [facility] emergency room, anoscopy showed Internal bleeding hemorrhoid. Hip pain, left 03/16/2017 Overview (03/16/2017): [facility] has documentation of a left intra-articular hip injection on May 07, 2016. Retention of urine 08/04/2016 Overview (11/12/2021): Saw urology 08/01/16. On flomax, [facility] follow up yearly per note 01/2017. Saw urology 08/01/16. On flomax, [facility] follow up yearly per note 01/2017. GERD (gastroesophageal reflux disease) 3 Severe manic bipolar 1 disorder with psychotic b ehavior 04/12/2012 Intractable back pain 02/08/2012 Primary hypertension 10/23/2009 Overview (09/10/2021): Dec 2020: Triamterene/hydrochlorothiazide decreased to half pill by heart doctor. September 2021: During psychiatric hospitalization due to hyponatremia the triamterene hydrochlorothiazide medication was stopped. Bipolar I disorder, most rec ent episode (or current) unspecified 10/23/2009 Anxiety 10/23/2009 Routine health maintenance 10/23/2009 Overview (09/21/2017): Last cpx-06/12 Last lipid-09/11, LDL-159 Colonoscopy 09/2017 normal, repeat in 10 years Resolved Problems Problem Noted Date Diagnosed Date Resolved Date Anticoagulation monitoring, INR range 2-3 12/16/2021 07/08/2022 Obesity, morbid, BMI 50 or higher 01/25/2016 06/13/2022 Obese 10/23/2009 01/25/2016 Encounters Date Type Department Care Team Description 06/13/2024 Refill [facility] [address] [place] [address] Ignacio Mckeon MD Refill Request (Aspirin, Lisinopril, , Metoprolol Tartrate, Sodium Chloride, Rosuvastatin, Cholecalciferol (Vitamin D3)) 06/01/2024 Refill [facility] [address] [place] [address] Ignacio Mckeon MD Refill Request (Multivitamin) 05/23/2024 Telephone [facility] [address] [place] [address] Ignacio Mckeon MD Form (PHYSICIAN ORDER) 05/16/2024 Refill [facility] [address] [place] [address] Ignacio Mckeon MD Refill Request (Tamsulosin, Omeprazole, Famotidine) 05/02/2024 Refill [facility] [address] [place] [address] Ignacio Mckeon MD Refill Request (Lisinopril, Cholecalciferol (Vitamin D3), Aspirin, Rosuvastatin, Senokot S) 04/05/2024 Refill [facility] [address] [place] [address] Ignacio Mckeon MD Refill Request (Aspirin, Famotidine, Lisinopril, Rosuvastatin, Omeprazole, Cholecalciferol (Vitamin D3), Tamsulosin, , ) from Last 3 Months Immunizations Immunization Administration Dates Next Due COVID-19 vaccine (Moderna 100mcg/0.5mL) PF, MDV 02/06/2021,05/22/2020 COVID-19 vaccine (Moderna 50mcg/0.5mL) 12YO+ BIVALENT PF, MDV 04/02/2022 COVID-19 vaccine (Moderna Adriano michael 50mcg/0.25mL) PF, MDV 11/12/2021 Influenza Virus, Unspecified 01/14/2017 Influenza, IIV3 (Age >=3 years) 01/04/2013,01/26,03/17/2011 Influenza, IIV4 04/02/2022,,01/09/2020,2014,12/12/2013 Influenza, IIV4 (=>6mos) MDV 01/11/2018 Td (Age >=7 Years) 01/04/2006 Tdap 11/17/2023,02/18/2016 Tuberculin (PPD) 02/12/2015,11/22/2012, 3 Family History Medical History Relation Name Comments Cancer Father gall bladder an d bladder. Diabetes Father Heart attack Father Hypertension Father Heart attack Mother Other Mother TTP related to E coli Infection. Stroke Mother Relation Name Status Comments Father Mother Social History Tobacco Use Types Packs/Day Years Used Date Smoking Tobacco: Former Cigars Q uit: 08/17/2020 Passive Smoke Exposure: Past Smokeless Tobacco: Never Tobacco Cessation:Counseling Given: Not Answered Alcohol Use Standard Drinks/Week Comments No 0 (1 standard drink = 0.6 oz pur e alcohol) PHQ-2 Answer Date Recorded PHQ-2 TOTAL SCORE 0 07/16/2022 Social Connections Answer Date Recorded Do you often feel lonely or isolated from those around you? 4 11/24/2023 Financial Resource Strain Answer Date R ecorded Difficulty of Paying Living Expenses 1 11/24/2023 Difficulty of Paying Living Expenses 2 11/24/2023 Food Insecurity Answer Date Recorded Do you worry your food will run out before you are able to buy more? 1 11/24/2023 Transportation Needs Answer Date Record ed Does lack of transportation keep you from medica l appointments? 1 11/24/2023 Does lack of transportation keep you from work, meetings or getting things that you need? 1 11/24/2023 Housing Stability Answer Date Recorded What is your housing situation today? 2 11/24/2023 Utilities Answer Date Recorded Do you have trouble paying f or utilities (for example, heat, electricity, water, phone)? 2 11/24/2023 Sex and Gender Information Value Date Recorded Sex Assigned at Not on file Legal Sex Male 6:05 AM HEALTH SPECIALIST Gender Identity Not on file Sexual Orientation Not on file Obstetrics History Last Filed Vital Signs Vital Sign Reading Time Taken Comments Blood Pressure 134/70 11/24/2023 3:35 PM CDT Pulse 80 11/24/2023 3:35 PM CDT Temperature 36.7 C (98.1 F) 04/17/2023 8:28 AM HEALTH SPECIALIST Respiratory Rate 16 11/05/2022 8:50 AM CDT Oxygen Saturation 98% 04/17/2023 8:28 AM HEALTH SPECIALIST Inhaled Oxygen Concentration - - Weight 142.9 kg (315 lb) 11/24/2023 3:35 PM CDT Height 170.5 cm (5' 7.13) 07/16/2022 9:58 AM CD T Body Mass Index 49.15 07/16/2022 9:58 AM CDT Plan of Treatment Health Maintenance Due Date Last Done Comments Pneumococcal series for age 50+ (1 of 2 - PCV) 07/20/1986 Zoster (shingles) series for age 50+ (1 of 2) 07/20/2017 BMI (ht and wt on same day) for age 18+ 07/17/2023 07/16/2022, 06/13/2022, 11/12/2021, Additional history exists Depression screening for age 12+ 07/19/2023 07/18/2022, 07/18/2022, 07/16/2022, Additional history exists COVID-19 vaccine series ( season) 2023 04/02/2022, 11/12/2021, 02/06/2021, Additional history exists Influenza Vaccine (#1) 2023 , 01/17/2021, 01/09/2020, Additional history exists Colonoscopy through age 75 09/22/202709/21, 09/21/2017, 09/21/2017 Lipids for age 45-75 09/24/2027 09/23/2022, 01/23/2021, 10/31/2019, Additional history exists Tetanus booster 11/16/2033 11/17/2023, 02/04, 01/04/2006 HIV for age 15-65 Completed 03/16/2017 Hepatitis C screening for ag e 18-79 Completed 05/16/2022 Tdap Completed 11/17/2023, 02/18/2016 Procedures Procedure Name Priority Date/Time Associated Diagnosis Comments LIPID PANEL W REFLEX MEASURED LDL Routine 09/23/2022 8:00 AM CDT Hyperlipidemia, unspecified hyperlipidemia type LC HCV ANTIBODY RFX TO QUANT PCR Routine 05/16/2022 9:10 AM HEALTH SPECIALIST Wellness examination SCAN-COLONOSCOPY 09/21/2017 12:0 0 AM CDT ANTI HIV 1/2 Routine 03/16/2017 10:16 AM HEALTH SPECIALIST Screening for HIV (human immunodeficiency virus) from Last 3 Months or Most Recently Relevant to Health Maintenance Results * LIPID PANEL W REFLEX MEASURED LDL (09/23/2022 8:00 AM CDT) CHOLESTEROL,TOTAL 137 100 - 199 mg/dL 09/23/2022 5:03 PM CDT [facility] Comment: Cholesterol, Total Reference Ranges Desirable <200 mg/dL Borderline 200-239 mg/dL High >=240 mg/dL TRIGLYCERIDES 84 <150 mg/dL 09/23/2022 5:03 PM CDT [facility] HDL CHOLESTEROL 58 >40 mg/dL 5:03 PM CDT [facility] NON-HDL CHOLESTEROL 79 <145 mg/dl 09/23/2022 5:03 PM CDT [facility] CHOL/HDL RATIO 2.36 <4.50 09/23/2022 5:03 PM CDT [facility] LDL CHOLESTEROL 62 <=130 mg/dL 09/23/2022 5:03 PM CDT [facility] VLDL CHOLESTEROL 17 <=30 mg/dL 09/23/2022 5:03 PM CDT [facility] PROVIDER ORDERED STATUS RANDOM 09/23/2022 5:03 PM CDT [facility] Blood BLOOD SPECIMEN / Unknown Butterfly / Unknown 09/23/2022 8:00 AM CDT 09/23/2022 10:23 AM CDT us Elena Lawson DO CHEMISTRY Final Resul t [facility] [address] [place] [address], [place] * LC HCV ANTIBODY RFX TO QUANT PCR (05/16/2022 9:10 AM HEALTH SPECIALIST) HCV Ab Non Reactive Non Reactive 05/20/2022 10:06 PM HEALTH SPECIALIST [facility] Blood BLOOD SPECIMEN / Unknown Venipuncture / Unknown 05/16/2022 9:10 AM HEALTH SPECIALIST 05/16/2022 9:10 AM HEALTH SPECIALIST Narrative [facility] ([facility]) - 05/20/2022 10:06 PM HEALTH SPECIALIST Performed at: - [address] [id number] Regulatory Compliance Engineer: Kane Lane MD, Phone: [phone] us Ignacio Mckeon MD LABORATORY Final Resul t Performing Organization Address City/[facility]/ZIP Co de Phone Number [facility] ([facility]) [facility] [place] [address], * SCAN-COLONOSCOPY (09/21/2017 12:00 AM CDT) us Scanner OTHER Final Result * ANTI HIV 1/2 [05350.0] (03/16/2017 10:16 AM HEALTH SPECIALIST) HIV-1/HIV-2 ANTIBODY Non-Reacti ve Non-Reacti ve 03/16/2017 2:37 PM HEALTH SPECIALIST [facility] Blood BLOOD SPECIMEN / Unknown Venipuncture / Unknown 03/16/2017 10:16 AM HEALTH SPECIALIST 03/16/2017 10:17 AM HEALTH SPECIALIST Narrative [facility] - 03/16/2017 2:37 PM HEALTH SPECIALIST HIV-1 p24 and HIV-1/HIV-2 Ab not detected us John Sellers MD SEND OUTS Final Res ult Performing Organization Address City/[facility]/ZIP Co de Phone Number [facility] [address] [place] [address], [place] from Last 3 Months or Most Recently Relevant to Health Maintenance Insurance MEDICARE PART B HB ONLY WC WORKERS COMP Advance Directives Documents on File Type Date Recorded Patient Printing Worker Supervisor Expl anation Treatment Guidelines 12/13/2020 * Full Code (Latest Code Status on File) Date Activated Date Inactivated Comments 09/17/2011 2:24 PM 09/17/2011 7:18 PM Care Teams Power Transformer Repair Supervisor Relationship Specialty [place] [address] [place] [address] PCP - General Family Practice 01/23/22 Stefan Barron MD [address] [place] [address] [id number] Psychiatry Psychiatry 03/16/17 Marko Bunch DO [address] [place] [id number] Family Practice 01/17/21
[2024-06-24 20:51] VITALS: BP 157/87; PULSE 78; RESP 18; TEMP 37; O2SAT 97; BMI 53.9
--- NOTE | 2024-06-24 21:12 | CRLHL7_ITS ---
For Patients: As a result of the Century Cures Act, medical imaging exams and procedure reports are released immediately into your electronic medical record. You may view this report before your referring provider. If you have questions, please contact your health care provider. Indication: Scrotal pain and swelling Technique: Sonographic evaluation of the testes and scrotum with grayscale and color Doppler imaging with spectral analysis Comparison: None Findings: Right: 5.6 x 2.9 x 3.8 centimeters. Unremarkable sonographic appearance of the parenchyma. Appropriate flow demonstrated. Small hydrocele. Left: 3.9 x 2.2 x 3.2 centimeters. Unremarkable sonographic appearance of the parenchyma. Appropriate flow demonstrated. Other: Right scrotal wall thickening and hypervascularity. Impression: 1. Right scrotal wall thickening and hypervascularity. This is nonspecific but could be seen in the setting of cellulitis. 2. Note is made of asymmetric size of the testicles with the right appearing larger than the left. The parenchyma otherwise appears unremarkable by ultrasound, and there is no evidence of torsion. This could be developmental, however, no prior examination is available for comparison, and although rare, lymphomatous invasion of the parenchyma could give this appearance. Recommend correlation with clinical history and if there is concern for pathologic asymmetry, urologic referral. Dictated by Rufus Crawford MD @ 06/24/2024 10:01:17 PM (Electronically Signed)
--- NOTE | 2024-06-24 21:30 | ED_ITS ---
HPI - General Adult General Date Seen: 06/24/24 Chief complaint: Urogenital Problems, Male Stated complaint: Testicular pain Time Seen by Provider: 06/24/24 21:11 History of Present Illness HPI narrative: Patient is a 58-year-old male here for right sided scrotal pain. He says yesterday started to develop pain, he thought maybe he had a yeast infection. He says yesterday he felt unwell with fevers up to 101 noted several times as well as fatigue. Today the fever seems to be gone but the pain in his right scrotum and testicle is worse. Past medical history reviewed, he is significantly overweight, does not have a known history of diabetes however. No significant drug or alcohol use. Related Data Home Medications ?Medication ?Instructions ?Recorded ?Confirmed acetaminophen 325 mg tablet 975 mg PO TID 12/06/21 10/29/22 aripiprazole 15 mg tablet 15 mg PO DAILY 12/06/21 10/29/22 ascorbic acid (vitamin C) 1,000 mg 1 g PO DAILY 12/06/21 10/29/22 capsule buspirone 5 mg tablet 5 mg PO TID 12/06/21 10/29/22 carbamazepine 200 mg tablet 400 mg PO BID 12/06/21 10/29/22 celecoxib 200 mg capsule 200 mg PO DAILY 12/06/21 10/29/22 cholecalciferol (vitamin D3) 125 125 mcg PO DAILY 12/06/21 10/29/22 mcg (5,000 unit) capsule docusate sodium 100 mg capsule 100 mg PO BID 12/06/21 10/29/22 (Col-Rite) famotidine 20 mg tablet 20 mg PO Q12H 12/06/21 10/29/22 metoprolol tartrate 50 mg tablet 50 mg PO BID 12/06/21 10/29/22 multivitamin with iron-mineral 1 tab PO DAILY 12/06/21 10/29/22 olanzapine 5 mg disintegrating 5 mg PO HS 12/06/21 12/09/21 tablet polyethylene glycol 3350 17 17 g PO DAILY 12/06/21 10/29/22 gram/dose oral powder psyllium husk (with sugar) 3 1 tbsp PO DAILY 12/06/21 10/29/22 gram/7 gram oral powder (Metamucil (with sugar)) sennosides 8.6 mg-docusate sodium 1 tab-cap PO BID 12/06/21 10/29/22 50 mg tablet (Senokot-S) tamsulosin 0.4 mg capsule 0.4 mg PO DAILY 12/06/21 10/29/22 sodium chloride 1,000 mg soluble 1,000 mg 12/09/21 tablet aspirin 81 mg tablet,delayed 81 mg PO DAILY 10/29/22 10/29/22 release (Adult Aspirin Regimen) lisinopril 10 mg tablet 10 mg PO DAILY 10/29/22 10/29/22 rosuvastatin 20 mg tablet 20 mg PO QPM 10/29/22 10/29/22 sennosides 8.6 mg-docusate sodium 1 tab-cap PO QHS 10/29/22 10/29/22 50 mg tablet (2-in-1 Laxative) Previous Rx's ?Medication ?Instructions ?Recorded ferrous sulfate 325 mg (65 mg 325 mg PO Q OTHER DAY #100 tabs 12/08/21 iron) tablet rivaroxaban 15 mg tablet (Xarelto) 15 mg PO BID #42 tabs 12/09/21 amoxicillin 875 mg-potassium 1 tab PO Q12H #10 tabs 10/29/22 clavulanate 125 mg tablet Allergies Allergy/AdvReac Type Severity Reaction Status Date / Time lithium Allergy Intermediate Palpitation Verified 10/29/22 18:40 s divalproex sodium (From AdvReac Intermediate Weight Verified 10/29/22 18:40 Depakote) Gain and Excessive Sedation valproic acid AdvReac Intermediate Weight Gain Verified 10/29/22 18:40 morphine AdvReac Mild Itching Verified 10/29/22 18:40 Review of Systems Status of ROS: Reports: 10 or more systems reviewed and unremarkable except as noted in History and below [facility] Medical History Gout ?M10.9 - Gout, unspecified (ICD-10) Chronic back pain ?M54.9 - Dorsalgia, unspecified (ICD-10) ?G89.29 - Other chronic pain (ICD-10) Anxiety ?F41.9 - Anxiety disorder, unspecified (ICD-10) Primary hypertension ?I10 - Essential (primary) hypertension (ICD-10) Molly ?F30.9 - Manic episode, unspecified (ICD-10) Severe manic bipolar 1 disorder with psychotic behavior ?F31.2 - Bipolar disorder, current episode manic severe with psychotic features (ICD-10) Obesity, morbid, BMI 50 or higher ?E66.01 - Morbid (severe) obesity due to excess calories (ICD-10) Hip pain, left ?M25.552 - Pain in left hip (ICD-10) Internal hemorrhoid, bleeding ?K64.8 - Other hemorrhoids (ICD-10) PAC (premature atrial contraction) ?I49.1 - Atrial premature depolarization (ICD-10) Arthritis of left knee ?M17.12 - Unilateral primary osteoarthritis, left knee (ICD-10) Bipolar affective disorder, currently manic, mild ?F31.11 - Bipolar disorder, current episode manic without psychotic features, mild (ICD-10) Surgical History Status post total hip replacement, left ?Z96.642 - Presence of left artificial hip joint (ICD-10) History of tonsillectomy ?Z90.89 - Acquired absence of other organs (ICD-10) H/O arthroscopy of right knee ?Z98.890 - Other specified postprocedural states (ICD-10) H/O arthroscopy of left knee ?Z98.890 - Other specified postprocedural states (ICD-10) Hx laparoscopic cholecystectomy ?Z90.49 - Acquired absence of other specified parts of digestive tract (ICD- 10) Social History Narrative: Has been living at a [facility] in [place]. He is a lifelong nonsmoker, denies alcohol or recreational drug use. Wishes to be a full code. Highest level of school completed/degree received: high school graduate Smoking Status: Never smoker How often do you have a drink containing alcohol: never How often do you have six or more drinks on one occasion: Never AUDIT-C Alcohol total score: 0 Non-prescribed substance use: denies use Caffeine: No service: No Exam Narrative: Exam Narrative: Vital signs reviewed In general, alert, nontoxic middle-aged male. Head: Normocephalic, atraumatic. Eyes: Sclera clear. Pupils equal and reactive. ENT: Mucous membranes moist. Neck: Supple without adenopathy. Heart: Regular rate and rhythm without murmur. Lungs: Clear. No increased work of breathing, crackles or wheezes. Abdomen: Soft, nontender to palpation. Body habitus limits exam somewhat. : The right hemiscrotum is somewhat erythematous and edematous, there is tenderness throughout the scrotum and testicle, less over the epididymis. I do not feel any subcutaneous air, there is no erythema extending into the perineum or low abdomen or thigh. Asymmetry is noted with the right testicle being larger than the left. Extremities: Well perfused, pulses intact. No significant edema. Neurologic: Alert, conversant. Speech fluent, face symmetric. Moves all extremities equally. Skin: Warm, dry well perfused. Affect: Normal. Const: Vital Signs, click to edit/add: Vital Signs - 24 hr 06/24/24 20:51 Temperature 98.6 F Pulse Rate [Right Pulse Oximeter] 78 Respiratory Rate 18 Blood Pressure [Ri ght Upper Arm] 157/87 H Pulse Oximetry 97 Oxygen Delivery Me thod Room Air Course Course ED Course: Because of his reported systemic symptoms yesterday I did do some lab work in addition to an ultrasound of the scrotum. Radiology review notes good blood flow to both testicles and thickening of the scrotal skin on the right. Overall I think the picture is consistent with cellulitis. His labs are all reviewed and all reassuring including CBC, procalcitonin, lactate and metabolic panel. His blood sugars 105. CRP is mildly elevated at 5.9, UA is unremarkable. I have discussed the findings of his ultrasound with him. The radiologist does note that the right testicle is significantly larger than the left, not able to document that this is chronic. Patient does feel that the right has always been bigger than the left since some sort of injury when he was younger. Have discussed with him that the radiologist had small concerned there could be a cancerous process, and I would recommend urology follow-up just to be safe. Phone number given to arrange for that follow-up. I have sent home a prescription for Keflex for the cellulitis. Reviewed reasons to return including rapidly spreading redness or pain, fevers, chills, weakness or other new symptoms. At this time I have no findings to suggest Giovanni's gangrene. Vital Signs Vital signs: Initial Vital Signs Temperature 98.6 F 06/24/24 20:51 Temperature Source Temporal Artery Scan 06/24/24 20:51 Pulse Rate 78 06/24/24 20:51 Respiratory Rate 18 06/24/24 20:51 Blood Pressure 157/87 H 06/24/24 20:51 Blood Pressure Mean 110 H 06/24/24 20:51 Blood Pressure Position Sitting 06/24/24 20:51 Pulse Oximetry 97 06/24/24 20:51 Oxygen Delivery Method Room Air 06/24/24 20:51 Vital Signs Temperature 98.6 F 06/24/24 20:51 Pulse Rate 78 06/24/24 20:51 Respiratory Rate 18 06/24/24 20:51 Blood Pressure 157/87 H 06/24/24 20:51 Pulse Oximetry 97 06/24/24 20:51 Oxygen Delivery Method Room Air 06/24/24 20:51 Temperature 98.6 F 06/24/24 20:51 Pulse Rate 78 06/24/24 20:51 Respiratory Rate 18 06/24/24 20:51 Blood Pressure 157/87 H 06/24/24 20:51 Pulse Oximetry 97 06/24/24 20:51 Oxygen Delivery Method Room Air 06/24/24 20:51 Medical Decision Making Lab Data Labs: Lab Results 06/24/24 06/24/24 Range/Units 21:39 22:02 WBC 6.16 (4.50-11.00) K/uL RBC 4.63 (4.30-5.90) m/uL Hgb 14.5 (13.5-17.5) gm/dL Hct 42.8 (37.0-53.0) % MCV 92 (80-100) fL MCH 31 (26-34) pg MCHC 34 (32-36) gm/dL RDW Coeff of Mamadou 12.1 (11.5-15.5) % Plt Count 163 (140-440) K/uL Neut % (Auto) 70.1 (42.0-72.0) % Lymph % (Auto) 16.7 L (20-44) % [place] % (Auto) 10.2 (0.0-11.0) % Eos % (Auto) 1.9 (0.0-7.0) % Baso % (Auto) 0.5 (0.0-3.0) % Neut # (Auto) 4.31 (1.7-7.0) K/uL Lymph # (Auto) 1.00 (0.90-2.90) K/uL [place] # (Auto) 0.60 (0.00-0.90) K/UL Eos # (Auto) 0.12 (0.00-0.50) K/uL Baso # (Auto) 0.03 (0.00-0.30) K/uL Abs Immat Gran (auto) 0.04 (0.00-0.30) K/uL Imm/Tot Granulo (auto) 0.6 % Sodium 133 L (135-149) mmol/L Potassium 4.2 (3.6-5.1) mmol/L Chloride 99 (96-114) mmol/L Carbon Dioxide 27 (20-32) mmol/L Anion Gap 7 (7-15) mEq/L BUN 11 (7-30) mg/dL Creatinine 0.7 (0.5-1.5) mg/dL Estimated Creat Clear 110.17 Estimated GFR 108 ml/min Glucose 105 (60-115) mg/dL Lactate 1.2 (0.5-1.9) mmol/L Calcium 8.9 (8.4-10.6) mg/dL C-Reactive Protein 5.9 H (0.5-1.0) mg/dL Procalcitonin 0.04 (<0.50) ng/mL Urine Color Yellow (Yellow) Urine Appearance Clear (Clear) Urine pH 7.0 (5.0-8.5) Ur Specific [place] 1.020 (1.000-1.030) Urine Protein Negative (Negative) Urine Glucose (UA) Negative (Negative) Urine Ketones Negative (Negative) Urine Blood 1+ A (Negative) Urine Nitrite Negative (Negative) Urine Bilirubin Negative (Negative) Urine Urobilinogen 0.2 (0.2-1.0) Ur Leukocyte Esterase Negative (Negative) Urine RBC 2-5 A (0-2) Urine WBC 0-2 (0-5) Ur Squamous Epith Cells None (None-Few) Urine Bacteria None (None) Imaging Data Scrotal ultrasound: Attestation: I have reviewed the pertinent imaging results. Radiologist's impression: Patient: ALYSIA KRAUS Facility: [facility] . Site : 1965 Study: US-Testicle -06/24/2024 9:43:22 PM Ordering Physician: Sol Saldivar Final Report: Indication: Scrotal pain and swelling Technique: Sonographic evaluation of the testes and scrotum with grayscale and color Doppler imaging with spectral analysis Comparison: None Findings: Right: 5.6 x 2.9 x 3.8 centimeters. Unremarkable sonographic appearance of the parenchyma. Appropriate flow demonstrated. Small hydrocele. Left: 3.9 x 2.2 x 3.2 centimeters. Unremarkable sonographic appearance of the parenchyma. Appropriate flow demonstrated. Other: Right scrotal wall thickening and hypervascularity. Impression: 1. Right scrotal wall thickening and hypervascularity. This is nonspecific but could be seen in the setting of cellulitis. 2. Note is made of asymmetric size of the testicles with the right appearing larger than the left. The parenchyma otherwise appears unremarkable by ultrasound, and there is no evidence of torsion. This could be developmental, however, no prior examination is available for comparison, and although rare, lymphomatous invasion of the parenchyma could give this appearance. Recommend correlation with clinical history and if there is concern for pathologic asymmetry, urologic referral. Dictated by Rufus Crawford MD @ 06/24/2024 10:01:17 PM Discharge Plan Discharge Clinical Impression: Cellulitis of scrotum, Enlarged testicle Patient Disposition: Home, Self-Care Condition: Stable Instructions: Scrotal Pain (ED) Additional Instructions: I am going to treat you for an infection of the scrotum. The testicle itself does not appear acutely injured, there was good blood flow. Your right testicle is larger than your left, and the radiologist recommends follow-up with Urology to make sure that nothing else needs to be investigated as to that difference in testicular size. [facility] [place] [facility] [phone] to schedule an appointment. In the meantime, for the infection, I have prescribed an antibiotic called cephalexin. You should notice gradual improvement over the next 2-3 days. If you worsen at any point, developed rapidly spreading infection, severe pain, high fevers, return to the emergency department right away. Prescriptions: No Action celecoxib 200 mg capsule 200 mg PO DAILY sennosides-docusate sodium [Senokot-S] 8.6-50 mg tablet 1 tab-cap PO BID Patient Comments: 1-2 tabs by mouth 2 times a day acetaminophen 325 mg tablet 975 mg PO TID Patient Comments: take 3 tabs by mouth every 8 hours carbamazepine 200 mg tablet 400 mg PO BID Patient Comments: TAKE 2 TABLETS BY MOUTH 2 TIMES DAILY. aripiprazole 15 mg tablet 15 mg PO DAILY Patient Comments: TAKE 1 TABLET BY MOUTH EVERY DAY IN THE MORNING buspirone 5 mg tablet 5 mg PO TID Patient Comments: TAKE 1 TABLET BY MOUTH THREE TIMES A DAY cholecalciferol (vitamin D3) 125 mcg (5,000 unit) capsule 125 mcg PO DAILY docusate sodium [Col-Rite] 100 mg capsule 100 mg PO BID famotidine 20 mg tablet 20 mg PO Q12H Patient Comments: TAKE 1 TABLET (20 MG) BY MOUTH 2 TIMES DAILY. FOR ACID REFLUX. metoprolol tartrate 50 mg tablet 50 mg PO BID Patient Comments: TAKE 1 TABLET BY MOUTH TWICE A DAY multivitamin with iron-mineral Tablet 1 tab PO DAILY olanzapine 5 mg tablet,disintegrating 5 mg PO HS Patient Comments: TAKE 1 TABLET BY MOUTH EVERYDAY AT BEDTIME polyethylene glycol 3350 17 gram/dose powder 17 g PO DAILY Metamucil (with sugar) 3 gram/7 gram powder 1 tbsp PO DAILY tamsulosin 0.4 mg capsule 0.4 mg PO DAILY Patient Comments: TAKE 1 CAPSULE (0.4 MG) BY MOUTH ONCE DAILY AFTER A MEAL. FOR URINARY SYMPT OMS. ascorbic acid (vitamin C) 1,000 mg capsule 1 g PO DAILY ferrous sulfate 325 mg (65 mg iron) tablet 325 mg PO Q OTHER DAY Qty: 100 0RF sodium chloride 1,000 mg tablet,soluble 1,000 mg Xarelto 15 mg tablet 15 mg PO BID Qty: 42 0RF Rx Instructions: must administer with evening meal; get second xarelto today lisinopril 10 mg tablet 10 mg PO DAILY rosuvastatin 20 mg tablet 20 mg PO QPM sennosides-docusate sodium [2-in-1 Laxative] 8.6-50 mg tablet 1 tab-cap PO QHS aspirin [Adult Aspirin Regimen] 81 mg tablet,delayed release (DR/EC) 81 mg PO DAILY amoxicillin-pot clavulanate 875-125 mg tablet 1 tab PO Q12H Qty: 10 0RF Follow Up/Referrals: Ignacio Mckeon MD [Primary Care Provider] - Stand Alone Forms: When You [facility] Info Instructions
[2024-06-24 21:45] LABS: Appearance Urine Clear (Clear); Bilirubin Urine Negative (Negative); Blood Urine 1+ (Negative); Color Urine Yellow (Yellow); Glucose Urine Negative (Negative); Ketones Urine Negative (Negative); Leukocyte Esterase Urine Negative (Negative); Nitrite Urine Negative (Negative); Protein Urine Negative (Negative); Urobilinogen Urine 0.2 (0.2-1.0)
[2024-06-24 21:54] LABS: WBC Urine 0-2 (0-5)
--- OUTSIDE RECORDS SUMMARY | 2024-06-24 22:03 | XMS_ITS | Encounter Summary ---
Author Organization [place] Address [address] [place] [address] Care Team Providers Care Forestry Consultant Name Role Phone John Sellers MD Primary Care Provider [phone] Carnes, Anah E PA-C Unavailable + [phone] Ryne Pearce MD Unavailable [phone] Lore Canales PharmD Unavailable [phone] Lore Canales PharmD Unavailable [phone] Ryne Pearce MD Unavailable [phone] Lore Canales PharmD Unavailable [phone] Mela Delgado APRN VESSEL WELDER Unavailable [phone] Carnes, Anah E PA-C Unavailable [phone] Zac Cifuentes MD Unavailable [phone] Carnes, Anah E PA-C Unavailable + [phone] Zac Cifuentes MD Unavailable [phone] [facility] Primary Care Provider Encounter Details Date Type Department Care Team (Late st Contact Info) Description 12/12/2020 [facility] [address] [place] [address] Lidya Yancey, RN Social History Tobacco Use Types Packs/Day Years Used Date Smoking Tobacco: Never Smokeless Tobacco: Never Alcohol Use Standard Drinks/Week Comments No 0 (1 standard drink = 0.6 oz pur e alcohol) Sex and Gender Information Value Date Recorded Sex Assigned at Male 11/08/2020 4:27 PM CDT 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 Gender Identity Male 11/08/2020 4:27 PM CDT [...] documented as of this encounter Care Teams Forestry Consultant Relationship Specialty Start Date End Date John Sellers MD PCP - General Family Medicine - Sports Medicine 04/03/17 11/16/[address] [address] PCP - General 11/17/23 Ricci Carnes PA-C [address] [place] [address] Assigned Heart and Vascular Provider 06/20/20 04/25/22 Ryne Pearce MD [address] [address] Urology 07/12/21 Lore Canales, PharmD [address] [place] [address] [place] [address] Pharmacist Pharmacist 09/10/21 Lore Canales, DarrenD [address] [facility] [place] [address] Assigned MTM Pharmacist 09/14/21 12/20/21 Ryne Pearce MD [address] [facility] [place] [id number] Assigned Surgical Provider 09/28/21 03/27/23 Lore Canales, DarrenD [address] [address] Assigned MTM Pharmacist 01/01/22 04/03/23 Mela Delgado APRN VESSEL WELDER [address] [place] [address] Assigned Heart and Vascular Provider 04/26/22 08/15/22 Ricci Carnes PA-C [address] [place] [address] Physician Cyber Workforce Developer And Manager Cardiovascular Disease 07/17/22 Zac Cifuentes MD [address] [place] [address] Cardiovascular Disease 08/21/22 Ricci Carnes PA-C [address] [place] [address] Assigned Heart and Vascular Provider 08/16/22 09/05/22 Zac Cifuentes MD [address] [place] [address] Assigned Heart and Vascular Provider 09/06/22 03/27/24 documented as of this encounter
--- OUTSIDE RECORDS SUMMARY | 2024-06-24 22:03 | XMS_ITS | Encounter Summary ---
Author Organization [place] Address [address] [place] [address] Care Team Providers Care Brick Off Bearer Name Role Phone John Sellers MD Primary Care Provider [phone] Carnes, Anamyriam E PA-C Unavailable [phone] Ryne Pearce MD Unavailable [phone] Lore Canales PharmD Unavailable [phone] Lore Canales PharmD Unavailable [phone] Ryne Pearce MD Unavailable [phone] Lore Canales PharmD Unavailable [phone] Mela Delgado APRN, CNP Unavailable [phone] Carnes, Anamyriam E PA-C Unavailable +[phone] Zac Cifuentes MD Unavailable + [phone] Carnes, Ricci E PA-C Unavailable + [phone] Zac Cifuentes MD Unavailable [phone] [facility] [place] Primary Care Provider Encounter Details Date Type [...] PM CDT 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 Gender Identity Male 11/08/2020 4:27 PM CDT [...] on filedocumented in this encounter Care Teams Brick Off Bearer Relationship Specialty Start Date End Date John Sellers MD PCP - General Family Medicine - Sports Medicine 04/03/17 11/16/23 [address] [place] [address] PCP - General 11/17/23 Ricci Carnes, PAGiorgioC [address] [place] [address] Assigned Heart and Vascular Provider 06/20/20 04/25/22 Ryne Pearce MD [address] [address] Urology 07/12/21 Lore Canales, PharmD [address] [place] [id number] Pharmacist Pharmacist 09/10/21 Lore Canales, PharmD [address] [place] [id number] Assigned MTM Pharmacist 09/14/21 12/20/21 Ryne Pearce MD [address] [place], [place] [address] Assigned Surgical Provider 09/28/21 03/27/23 Lore Canales, PharmD [address] [place] [address] Assigned MTM Pharmacist 01/01/22 04/03/23 Mela Delgado, PAINT ROLLER COVER MACHINE SETTER COLD MILL SUPERVISOR [address] [place] [address] Assigned Heart and Vascular Provider 04/26/22 08/15/22 Ricci Carnes PA-C [address] [place] [address] Physician Floor Finisher Cardiovascular Disease 07/17/22 Zac Cifuentes MD [address] [place] [address] Cardiovascular Disease 08/21/22 Ricci Carnes PA-C [address] [place] [address] Assigned Heart and Vascular Provider 08/16/22 09/05/22 Zac Cifuentes MD [address] [place] [address] Assigned Heart and Vascular Provider 09/06/22 03/27/24 documented as of this encounter
--- OUTSIDE RECORDS SUMMARY | 2024-06-24 22:03 | XMS_ITS | Encounter Summary ---
Author Organization [place] Address [address] [place] [address] Care Team Providers Care Office 365 Consultant Name Role Phone John Sellers MD Primary Care Provider Carnes, Anah E PA-C Unavailable [phone] Ryne Pearce MD Unavailable [phone] Lore Canales PharmD Unavailable Lore Canales PharmD Unavailable [phone] Ryne Pearce MD Unavailable [phone] Lore Canales PharmD Unavailable [phone] Mela Delgado APRN DOPE MAINTENANCE WORKER Unavailable [phone] Carnes, Anah E PA-C Unavailable + [phone] Zac Cifuentes MD Unavailable [phone] Carnes, Anamyriam E PA-C Unavailable + [phone] Zac Cifuentes MD Unavailable [phone] [facility] [place] Primary Care Provider Encounter Details Date Type Department Care Team (Late st Contact Info) Description 12/21/[address] 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 Gender Identity Male 11/08/2020 4:27 PM CDT [...] as of this encounter Care Teams Office 365 Consultant Relationship Specialty Start Date End Date John Sellers MD PCP - General Family Medicine - Sports Medicine 04/03/17 11/16/[address] [address] PCP - General 11/17/23 Ricci Carnes PA-C [address] [place] [address] Assigned Heart and Vascular Provider 06/20/20 04/25/22 Ryne Pearce MD [address] [address] Urology 07/12/21 Lore Canales, PharmD [address] [place] [address] [place] [address] Pharmacist Pharmacist 09/10/21 Lore Canales, DarrenD [address] [place] [facility] [place] [address] Assigned MTM Pharmacist 09/14/21 12/20/21 Ryne Pearce MD [address] [facility] [place] [address] Assigned Surgical Provider 09/28/21 03/27/23 Lore Canales, DarrenD [address] [address] Assigned MTM Pharmacist 01/01/22 04/03/23 Mela Delgado APRN DOPE MAINTENANCE WORKER [address] [place] [address] Assigned Heart and Vascular Provider 04/26/22 08/15/22 Ricci Carnes PA-C [address] [place] [address] Physician Pulley Man Cardiovascular Disease 07/17/22 Zac Cifuentes MD [address] [place] [address] Cardiovascular Disease 08/21/22 Ricci Carnes PA-C [address] [place] [address] Assigned Heart and Vascular Provider 08/16/22 09/05/22 Zac Cifuentes MD [address] [place] [address] Assigned Heart and Vascular Provider 09/06/22 03/27/24 documented as of this encounter
--- OUTSIDE RECORDS SUMMARY | 2024-06-24 22:03 | XMS_ITS | Encounter Summary ---
Author Organization [place] Address [address] [place] [address] Care Team Providers Care Rangeland Management Specialist Name Role Phone John Sellers MD Primary Care Provider [phone] Trice, Anamyriam E PA-C Unavailable +- [phone] Ryne Pearce MD Unavailable [phone] Lore Canales PharmD Unavailable Lore Canales PharmD Unavailable +[phone] Ryne Pearce MD Unavailable [phone] Lore Canales PharmD Unavailable +[phone] Mela Delgado APRN SCHOOL CHILDCARE ATTENDANT Unavailable +[phone] Carnes, Anah E PA-C Unavailable + 5000 Zac Cifuentes MD Unavailable +[phone] Carnes, Anamyriam E PA-C Unavailable + 5000 Zac Cifuentes MD Unavailable +[phone] [facility] [place] Primary Care Provider Reason for Visit * Reason Onset Date Comments MH/CD Inpatient 08/29/2021 Encounter Details Date Type Department Care Team ([facility] st Contact Info) Description 08/29/[address] 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 Gender Identity Male 11/08/2020 4:27 PM CDT [...] on filedocumented in this encounter Care Teams Rangeland Management Specialist Relationship Specialty Start Date End Date John Sellers MD PCP - General Family Medicine - Sports Medicine 04/03/17 11/16/23 [facility] [address] [place] [address] PCP - General 11/17/23 Ricci Carnes PA-C [address] [facility] [place] [address] Assigned Heart and Vascular Provider 06/20/20 04/25/22 Ryne Pearce MD [address] [place] [address] Urology 07/12/21 Lore Canales, PharmD [address] [id number] Pharmacist Pharmacist 09/10/21 Lore Canales, PharmD [address] [place] [address] [address] Assigned MTM Pharmacist 09/14/21 12/20/21 Ryne Pearce MD [address] [place] [address] Assigned Surgical Provider 09/28/21 03/27/23 Lore Canales, DarrenD [address] [place] [address] [address] Assigned MTM Pharmacist 01/01/22 04/03/23 Mela Delgado APRN SCHOOL CHILDCARE ATTENDANT [address] [place] [address] Assigned Heart and Vascular Provider 04/26/22 08/15/22 Ricci Carnes PA-C [address] [facility] [place] [address] Physician Cloud Architect Cardiovascular Disease 07/17/22 Zac Cifuentes MD [address] [place] [address] Cardiovascular Disease 08/21/22 Ricci Carnes PA-C [address] [place] [address] Assigned Heart and Vascular Provider 08/16/22 09/05/22 Zac Cifuentes MD [address] [facility] [address] [place] [address] Assigned Heart and Vascular Provider 09/06/22 03/27/24 documented as of this encounter
--- OUTSIDE RECORDS SUMMARY | 2024-06-24 22:03 | XMS_ITS | Encounter Summary ---
Author Organization [place] Address [address] [place] [address] Care Team Providers Care Desk Clerks Supervisor Name Role Phone John Sellers MD Primary Care Provider [phone] Carnes, Anamyriam E PA-C Unavailable +[phone] Ryne Pearce MD Unavailable [phone] Lore Canales PharmD Unavailable +[phone] Lore Canales PharmD Unavailable +[phone] Ryne Pearce MD Unavailable [phone] Lore Canales PharmD Unavailable +[phone] Mela Delgado APRN, CNP Unavailable +[phone] Carnes, Anamyriam E PA-C Unavailable +[phone] Zac Cifuentes MD Unavailable + [phone] Carnes, Ricci E PA-C Unavailable + 5000 Zac Cifuentes MD Unavailable +[phone] [facility] [place] Primary Care Provider Encounter Details Date Type [...] PM CDT Legal Sex Male 2:58 AM RESEARCH SUBJECT Gender Identity Male 11/08/2020 4:27 PM CDT [...] on filedocumented in this encounter Care Teams Desk Clerks Supervisor Relationship Specialty Start Date End Date John Sellers MD PCP - General Family Medicine - Sports Medicine 04/03/17 11/16/23 [address] [address] PCP - General 11/17/23 Ricci Carnes, PAGiorgioC [address] [place] [address] Assigned Heart and Vascular Provider 06/20/20 04/25/22 Ryne Pearce MD [address] [address] Urology 07/12/21 Lore Canales, PharmD [address] [place] [address] 458554 Pharmacist Pharmacist 09/10/21 Lore Canales, PharmD [address] [place] [address] 414764 Assigned MTM Pharmacist 09/14/21 12/20/21 Ryne Pearce MD [address] [place], [place] [address] Assigned Surgical Provider 09/28/21 03/27/23 Lore Canales, PharmD [address] [place] [address] Assigned MTM Pharmacist 01/01/22 04/03/23 Mela Delgado, ROCKET MOTOR TESTER SLIVER LAPPER [address] [place] [address] Assigned Heart and Vascular Provider 04/26/22 08/15/22 Ricci Carnes PA-C [address] [place] [address] Physician Game Programer Cardiovascular Disease 07/17/22 Zac Cifuentes MD [address] [place] [address] Cardiovascular Disease 08/21/22 Ricci Carnes PA-C [address] [place] [address] Assigned Heart and Vascular Provider 08/16/22 09/05/22 Zac Cifuentes MD [address] [place] [address] [place] [address] Assigned Heart and Vascular Provider 09/06/22 03/27/24 documented as of this encounter
--- OUTSIDE RECORDS SUMMARY | 2024-06-24 22:03 | XMS_ITS | Encounter Summary ---
Author Organization [place] Address [address] [place] [address] Care Team Providers Care Roll Contour Grinder Name Role Phone John Sellers MD Primary Care Provider [phone] Carnes, Anamyriam E PA-C Unavailable +[phone] Ryne Pearce MD Unavailable [phone] Lore Canales PharmD Unavailable +[phone] Lore Canales PharmD Unavailable +[phone] Ryne Pearce MD Unavailable [phone] Lore Canales PharmD Unavailable +[phone] Mela Delgado APRN, CNP Unavailable +[phone] Carnes, Anah E PA-C Unavailable +[phone] Zac Cifuentes MD Unavailable +[phone] Carnes, Ricci E PA-C Unavailable + 5000 Zac Cifuentes MD Unavailable +[phone] [facility] [place] Primary Care Provider Encounter Details Date Type [...] PM CDT Legal 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 Gender Identity Male 11/08/2020 4:27 PM CDT [...] documented as of this encounter Care Teams Roll Contour Grinder Relationship Specialty Start Date End Date John Sellers MD PCP - General Family Medicine - Sports Medicine 04/03/17 11/16/23 [facility] [address] [place] [address] PCP - General 11/17/23 Ricci Carnes PA-C [address] [place] [address] Assigned Heart and Vascular Provider 06/20/20 04/25/22 Ryne Pearce MD [address] [address] Urology 07/12/21 Lore Canales, PharmD [address] 4259475 [place], [place] [address] Pharmacist Pharmacist 09/10/21 Lore Canales, PharmD [address] [place] [address] Assigned MTM Pharmacist 09/14/21 12/20/21 Ryne Pearce MD [address] [place], [place] 5[address]85 Assigned Surgical Provider 09/28/21 03/27/23 Lore Canales, PharmD [address] [place] [address] Assigned MTM Pharmacist 01/01/22 04/03/23 Mela Delgado APRN CNP [address] [place] [place] [address] Assigned Heart and Vascular Provider 04/26/22 08/15/22 Ricci Carnes PA-C [address] [place] [address] Physician Medical Grade [place] Cardiovascular Disease 07/17/22 Zac Cifuentes MD [address] [place] [address] Cardiovascular Disease 08/21/22 Ricci Carnes PA-C [address] [place] [address] Assigned Heart and Vascular Provider 08/16/22 09/05/22 Zac Cifuentes MD [address] [place] 00[address]65 Assigned Heart and Vascular Provider 09/06/22 03/27/24 documented as of this encounter
--- OUTSIDE RECORDS SUMMARY | 2024-06-24 22:03 | XMS_ITS | Encounter Summary ---
Author Organization [place] Address [address] [place] [address] Care Team Providers Care Solar System Designer Name Role Phone John Sellers MD Primary Care Provider Trice, Ricci E PA-C Unavailable +- [phone] Ryne Pearce MD Unavailable [phone] Lore Canales PharmD Unavailable +[phone] Lore Canales PharmD Unavailable +[phone] Ryne Pearce MD Unavailable [phone] Lore Canales PharmD Unavailable +[phone] Mela Delgado APRN, CNP Unavailable +[phone] Carnes, Ricci E PA-C Unavailable + 5000 Zac Cifuentes MD Unavailable +[phone] Carnes, Ricci E PA-C Unavailable + 5000 Zac Cifuentes MD Unavailable +[phone] [facility] [place] Primary Care Provider Reason for Visit * Reason Onset Date Comments Appointment 09/24/2021 Next-business da y appt. 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 [facility] [place] [address] Assigned Heart and Vascular Provider 06/20/20 04/25/22 Ryne Pearce MD [address] [facility] [address] [place] [address] Urology 07/12/21 Lore Canales, PharmD [address] [place] [address] Pharmacist Pharmacist 09/10/21 Lore Canales, PharmD [address] [place] [address] Assigned MTM Pharmacist 09/14/21 12/20/21 Ryne Pearce MD [address] [facility] [address] [place] [address] Assigned Surgical Provider 09/28/21 03/27/23 Lore Canales, PharmD [address] [place] [address] Assigned MTM Pharmacist 01/01/22 04/03/23 Mela Delgado APRN DRAFTING INSTRUCTOR [address] [place] [address] Assigned Heart and Vascular Provider 04/26/22 08/15/22 Ricci Carnes PA-C [facility] [facility] [place] [address] Physician Risk Manager Cardiovascular Disease 07/17/22 Zac Cifuentes MD [address] [facility] [address] [place] [address]37[address] Cardiovascular Disease 08/21/22 Ricci Carnes, PA-C [address] [place] [address] Assigned Heart and Vascular Provider 08/16/22 09/05/22 Zac Cifuentes MD [address] [facility] [address] [place] [address] Assigned Heart and Vascular Provider 09/06/22 03/27/24 documented as of this encounter
--- OUTSIDE RECORDS SUMMARY | 2024-06-24 22:03 | XMS_ITS | Clinical Summary ---
Author Organization [email or web address] Address [address] [place] [address] Care Team Providers Care Piping Engineer Name Role Phone Stefan Barron MD Unavailable [phone] Marko Bunch DO Unavailable [phone] Ignacio Mckeon MD Primary Care Provider [phone] Allergies Active Allergy Reactions Criticality Noted Date Comments Bee Venom Protein (Honey Bee) Edema 01/06/2022 Cephalexin Anaphylaxis High 12/23/2021 Divalproex Sodium *Unknown - Pt Doesn't Remember 10/23/2009 Depakote Weight gain [place] *Unknown 10/23/2009 Weight gain and thirst Morphine [...] daily. 360 Tablet 3 023 Active Ascorbic Klae-Rgykvyhec-Ab n (Emergen-C) 1,000 mg pwepIndications:W ellness examination [...] Overview (08/17/2022): 2022: Rosuvastatin (Crestor) started by Die Engraving Supervisor??? DVT (deep venous thrombosis) 12/21/2021 Overview (11/25/2023): [...] left knee 09/14/2019 Overview (09/14/2019): September 2019: [facility] Left knee Injection PAC (premature atrial contraction) 06/19/2019 Overview (06/19/2019): June 2019: see [facility] consult note, had Stress test and monitor, only found PAC and PVC. Screening for colon cancer 09/27/2017 Overview (09/27/2017): September 2017: screening Colonoscopy at [facility]. Repeat recommended 10 years, so 2027. Myopia of both eyes with astigmatism and presbyo breanna 08/10/2017 Color vision deficiencies 08/10/2017 Internal hemorrhoid, bleeding 04/07/2017 Overview (04/07/2017): March 2017: [facility] emergency room, anoscopy showed Internal bleeding hemorrhoid. Hip pain, left 03/16/2017 Overview (03/16/2017): [facility] has documentation of a left intra-articular hip injection on May 07, 2016. Retention of urine 08/04/2016 Overview (11/12/2021): Saw urology 08/01/16. On flomax, [facility] follow up yearly per note 01/2017. Saw urology 08/01/16. On flomax, [facility] follow up yearly per note 01/2017. [...] Type Department Care Team Description 06/13/2024 Refill [facility] [address] [place] [address] Ignacio Mckeon MD Refill Request (Aspirin, Lisinopril, , Metoprolol Tartrate, Sodium Chloride, Rosuvastatin, Cholecalciferol (Vitamin D3)) 06/01/2024 Refill [facility] [address] [place] [address] Ignacio Mckeon MD Refill Request (Multivitamin) 05/23/2024 Telephone [facility] [address] [place] [address] Ignacio Mckeon MD Form (PHYSICIAN ORDER) 05/16/2024 Refill [facility] [address] [place] [address] Ignacio Mckeon MD Refill Request (Tamsulosin, Omeprazole, Famotidine) 05/02/2024 Refill [facility] [address] [place] [address] Ignacio Mckeon MD Refill Request (Lisinopril, Cholecalciferol (Vitamin D3), Aspirin, Rosuvastatin, Senokot S) 04/05/2024 Refill [facility] [address] [place] [address] Ignacio Mckeon MD Refill Request (Aspirin, Famotidine, [...] on file Legal Sex Male 6:05 AM VICE PRESIDENT CORPORATE 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 Gender Identity Not on file Sexual Orientation Not on file Obstetrics History Last Filed Vital Signs Vital Sign Reading Time Taken Comments Blood Pressure 134/70 11/24/2023 3:35 PM CDT Pulse 80 11/24/2023 3:35 PM CDT Temperature 36.7 C (98.1 F) 04/17/2023 8:28 AM VICE PRESIDENT CORPORATE 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 Respiratory Rate 16 11/05/2022 8:50 AM CDT Oxygen Saturation 98% 04/17/2023 8:28 AM VICE PRESIDENT CORPORATE 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 Inhaled Oxygen Concentration - - Weight 142.9 [...] TO QUANT PCR Routine 05/16/2022 9:10 AM VICE PRESIDENT CORPORATE 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 Wellness examination SCAN-COLONOSCOPY 09/21/2017 12:0 0 AM CDT ANTI HIV 1/2 Routine 03/16/2017 10:16 AM VICE PRESIDENT CORPORATE 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 Screening for HIV (human immunodeficiency virus) from Last 3 Months or Most Recently Relevant to Health Maintenance Results * LIPID PANEL W REFLEX MEASURED LDL (09/23/2022 8:00 AM CDT) CHOLESTEROL,TOTAL 137 100 - 199 mg/dL 09/23/2022 5:03 PM CDT [facility] Comment: Cholesterol, Total Reference Ranges Desirable <200 mg/dL Borderline 200-239 mg/dL High >=240 mg/dL TRIGLYCERIDES 84 <150 mg/dL 09/23/2022 5:03 PM CDT [facility] HDL CHOLESTEROL 58 >40 mg/dL 5:03 PM CDT [facility] NON-HDL CHOLESTEROL 79 <145 mg/dl 09/23/2022 5:03 PM CDT [facility] CHOL/HDL RATIO 2.36 <4.50 09/23/2022 5:03 PM CDT [facility] LDL CHOLESTEROL 62 <=130 mg/dL 09/23/2022 5:03 PM CDT [facility] VLDL CHOLESTEROL 17 <=30 mg/dL 09/23/2022 5:03 PM CDT [facility] PROVIDER ORDERED STATUS RANDOM 09/23/2022 5:03 PM CDT [facility] Blood BLOOD SPECIMEN / Unknown Butterfly / Unknown 09/23/2022 8:00 AM CDT 09/23/2022 10:23 AM CDT us Elena Lawson DO CHEMISTRY Final Resul t [facility] [address] [place] [address], [place] * LC HCV ANTIBODY RFX TO QUANT PCR (05/16/2022 9:10 AM VICE PRESIDENT CORPORATE 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) HCV Ab Non Reactive Non Reactive 05/20/2022 10:06 PM VICE PRESIDENT CORPORATE 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 [facility] Blood BLOOD SPECIMEN / Unknown Venipuncture / Unknown 05/16/2022 9:10 AM VICE PRESIDENT CORPORATE 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 05/16/2022 9:10 AM VICE PRESIDENT CORPORATE 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 Narrative [facility]) - 05/20/2022 10:06 PM VICE PRESIDENT CORPORATE 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 Performed at: - [address] [id number] Bridge Saw Operator: Kane Lane MD, Phone: [phone] us Ignacio Mckeon MD LABORATORY Final Resul t Performing Organization Address City/[facility]/ZIP Co de Phone Number [facility] ([facility]) [facility] [place] [address], * SCAN-COLONOSCOPY (09/21/2017 12:00 AM CDT) us Scanner OTHER Final Result * ANTI HIV 1/2 [29347.0] (03/16/2017 10:16 AM VICE PRESIDENT CORPORATE 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) HIV-1/HIV-2 ANTIBODY Non-Reacti ve Non-Reacti ve 03/16/2017 2:37 PM VICE PRESIDENT CORPORATE 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 [facility] Blood BLOOD SPECIMEN / Unknown Venipuncture / Unknown 03/16/2017 10:16 AM VICE PRESIDENT CORPORATE 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 03/16/2017 10:17 AM VICE PRESIDENT CORPORATE 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 Narrative [facility] - 03/16/2017 2:37 PM VICE PRESIDENT CORPORATE 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 HIV-1 p24 and HIV-1/HIV-2 Ab not detected us John Sellers MD SEND OUTS Final Res ult Performing Organization Address City/[facility]/ZIP Co de Phone Number [facility] [address] [place] [address], [place] from Last 3 Months or Most Recently Relevant to Health Maintenance Insurance MEDICARE PART B HB ONLY WC WORKERS COMP Advance Directives Documents on File Type Date Recorded Patient Cement Kiln Operator Expl anation Treatment Guidelines 12/13/2020 * Full Code (Latest Code Status on File) Date Activated Date Inactivated Comments 09/17/2011 2:24 PM 09/17/2011 7:18 PM Care Teams Piping Engineer Relationship Specialty Start [place] [address] [place] [address] PCP - General Family Practice 01/23/22 Stefan Barron MD [address] [place] [address] [phone] Psychiatry Psychiatry 03/16/17 Marko Bunch DO [address] [place] [address] Family Practice 01/17/21
--- OUTSIDE RECORDS SUMMARY | 2024-06-24 22:04 | XMS_ITS | Encounter Summary ---
Author Organization [place] Address [address] [place] [address] Care Team Providers Care Director Of Surgery Name Role Phone Ramesh Perez MD Primary Care Provider Austin Jama Mcintosh MD Primary Care Provider + [phone] [facility], [facility] Primary Care Provider + John Sellers MD Primary Care Provider [phone] Bronwyn Bunch DO Unavailable + Carnes, Anamyriam E PA-C Unavailable +[phone] Ryne Pearce MD Unavailable [phone] Lore Canales PharmD Unavailable +[phone] Lore Canales PharmD Unavailable +[phone] Ryne Pearce MD Unavailable +[phone] Lore Canales PharmD Unavailable +[phone] Mela Delgado APRN, CNP Unavailable + [phone] Carnes, Anamyriam E PA-C Unavailable +[phone] Zac Cifuentes MD Unavailable + 5 Carnes, Ricci E PA-C Unavailable +[phone] Zac Cifuentes MD Unavailable + [phone] [facility] Primary Care Provider Encounter Details Date Type Department Care Team (Late st Contact Info) Description 02/20/2012 Telephone [facility] Behavioral Health Intake [address] [place] [address] Generic, Behavioral Intake, Social History Tobacco Use Types Packs/Day Years Used Date Smoking Tobacco: Never Alcohol Use Standard Drinks/Week Comments No 0 (1 standard drink = 0.6 oz pur e alcohol) Sex and Gender Information Value Date Recorded Sex Assigned at Male 11/08/2020 4:27 PM CDT Legal Sex Male 2:58 AM MODELING 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 Says he feels confused and that he has short term memory prob's. A: appears manic in bec, hyperverbal, denies si, denies ross's, pressured speech, coop, vol R: #32/majeski accepted for herself mbw LING AGENCY MANAGER documented in this encounter Plan of Treatment Not on file documented as of this encounter Visit Diagnoses Not on filedocumented in this encounter Additional Health Concerns Infection Onset Date Last Indicated Resolved Time Rule Out COVID-19 07/17/2021 07/17/2021 07/17/2021 2:53 PM CDT documented as of this encounter Care Teams Director Of Surgery Relationship Specialty Start Date End Date Ramesh Perez MD PCP - General Family Practice 02/06/12 05/30/12 Jama Anthony MD [address] [place] [address] PCP - General Internal Medicine 05/31/12 04/06/13 [facility] [address] [place] [phone] PCP - General 04/07/13 04/02/17 [place] [address] [place] [phone] PCP - General Family Medicine - Sports Medicine 04/03/17 11/16/23 [facility] [address] [place] [address] PCP - General 11/17/23 Bronwyn Bunch DO [id number] [place] [address] Assigned Heart and Vascular Provider 01/27/20 06/19/20 Ricci Carnes PA-C [address] [place] [address] Assigned Heart and Vascular Provider 06/20/20 04/25/22 Ryne Pearce MD [address] [address] Urology 07/12/21 Lore Canales, PharmD [address] [place] [address] Pharmacist Pharmacist 09/10/21 Lore Canales, DarrenD [address] [place] [address] Assigned MTM Pharmacist 09/14/21 12/20/21 Ryne Pearce MD [address] [place] [address] Assigned Surgical Provider 09/28/21 03/27/23 Lore Canales, DarrenD [address] [address] Assigned MTM Pharmacist 01/01/22 04/03/23 Mela Delgado APRN HANDKERCHIEF FOLDER [address] [place] [address] Assigned Heart and Vascular Provider 04/26/22 08/15/22 Ricci Carnes PA-C [address] [place] [address] Physician Barrel Waterer Cardiovascular Disease 07/17/22 Zac Cifuentes MD [address] [place] [address] Cardiovascular Disease 08/21/22 Ricci Carnes PA-C [address] [place] [address] Assigned Heart and Vascular Provider 08/16/22 09/05/22 Zac Cifuentes MD [address] [place] [address] Assigned Heart and Vascular Provider 09/06/22 03/27/24 documented as of this encounter
--- OUTSIDE RECORDS SUMMARY | 2024-06-24 22:04 | XMS_ITS | Encounter Summary ---
Author Organization [place] Address [address] [place] [address] Care Team Providers Care Meat Molder Name Role Phone John Sellers MD Primary Care Provider Trice, Ricci Esparza PA-C Unavailable +[phone] Ryne Pearce MD Unavailable [phone] Lore Canales PharmD Unavailable [phone] Ryne Pearce MD Unavailable [phone] Lore Canales PharmD Unavailable [phone] Mela Delgado APRN PIT SUPERVISOR Unavailable [phone] Carnes, Ricci E PA-C Unavailable + [phone] Zac Cifuentes MD Unavailable +[phone] Carnes, Ricci E PA-C Unavailable [phone] Zac Cifuentes MD Unavailable [phone] [facility] [place] Primary Care Provider Encounter Details Date Type Department Care Team (Late st Contact Info) Description 04/22/2022 MyC Medical Advice [facility] [place] [address] [address] Yahaira Freeman Social History Tobacco Use Types Packs/Day Years Used Date Smoking Tobacco: Never Smokeless Tobacco: Never Alcohol Use Standard Drinks/Week Comments No 0 (1 standard drink = 0.6 oz pur e alcohol) Sex and Gender Information Value Date Recorded Sex Assigned at Male 11/08/2020 4:27 PM CDT Legal 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 Gender Identity Male 11/08/2020 4:27 PM CDT Sexual Orientation Straight 11/08/2020 4: 27 PM CDT documented as of this encounter Plan of Treatment Not on file documented as of this encounter Visit Diagnoses Not on filedocumented in this encounter Care Teams Meat Molder Relationship Specialty Start Date End Date John Sellers MD PCP - General Family Medicine - Sports Medicine 04/03/17 11/16/23 [facility] [address] [place], [place] [address] [place] [address] PCP - General 11/17/23 Ricci Carnes PA-C [address] [place] [address] Assigned Heart and Vascular Provider 06/20/20 04/25/22 Ryne Pearce MD [address] [facility] [address] [place] [address] Urology 07/12/21 Lore Canales, PharmD [address] [place], [place] [address] [place] [address] Pharmacist Pharmacist 09/10/21 Ryne Pearce MD [address] [place] [address] Assigned Surgical Provider 09/28/21 03/27/23 Lore Canales, PharmD [address] [place], [place] [address] [place] [address] Assigned MTM Pharmacist 01/01/22 04/03/23 Mela Delgado APRN PIT SUPERVISOR [address] [place] [address] Assigned Heart and Vascular Provider 04/26/22 08/15/22 Ricci Carnes PA-C [address] [place] [address] Physician Woods Manager Cardiovascular Disease 07/17/22 Zac Cifuentes MD [address] [place] [address] MD Cardiovascular Disease 08/21/22 Ricci Carnes PACass [address] [place] [address] Assigned Heart and Vascular Provider 08/16/22 09/05/22 Zca Cifuentes MD [address] [place] [address] Assigned Heart and Vascular Provider 09/06/22 03/27/24 documented as of this encounter
--- OUTSIDE RECORDS SUMMARY | 2024-06-24 22:04 | XMS_ITS | Clinical Summary ---
Author Organization [place] Address [address] [place] [address] Care Team Providers Care Cab Driver Name Role Phone Ryne Pearce MD Unavailable [phone] Lore CanalesD Unavailable [phone] Ricci Carnes PA-C Unavailable [phone] Zac Cifuentes MD Unavailable [phone] Olivier, Cristy Grady Primary Care Provider Allergies Active Allergy Reactions Criticality Noted Date Comments Divalproex Sodium Other (See Comments) 07/10/19 12 Weight gain and excessive sedation [place] Palpitations Low 05/17/2008 Diarrhea, nausea, Morphine Itching [...] WITH SUPPER, Reported on 06/05/2022 nystatin (MYCOSTATIN) [id number] UNIT/GM external powder Apply topically 2 times [...] 20 MG tabletIndicatio ns: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 Screening for colon cancer 09/27/2017 Overview (09/04/2021): September 2017: screening Colonoscopy at [facility]. Repeat recommended 10 years, so 2027. Color vision deficiencies 08/10/2017 Myopia of both eyes with astigmatism and presbyo breanna 08/10/2017 Internal hemorrhoid, bleeding 04/07/2017 Overview (09/04/2021): March 2017: [facility] emergency room, anoscopy showed Internal bleeding hemorrhoid. Hip pain, left 03/16/2017 Overview (09/04/2021): [facility] has documentation of a left intra-articular hip injection on May 07, 2016. Retention of urine 08/04/2016 Overview (09/04/2021): Saw urology 08/01/16. On flomax, [facility] follow up yearly per note 01/2017. [...] PM CDT Legal Sex Male 2:58 AM HOTEL YARDPERSON Gender Identity Male 11/08/2020 4:27 PM CDT [...] this topic Medical Devices Implanted Type Area Senior Talent Management Consultant Device Identifier Shelf Expiration Date Model / Serial / Lot Imp T[place]umseh Hole Eliminator Hip Depuy Duraloc 1246-03-000 - [id number] Implanted:Qty : 1 on 12/04/2021 by Hudson Vences MD at [facility] Metallic Hardware/An chor Left: Hip [employer] [id number] 09/04/2031 [id number] / / [id number] Imp Scr Bone Can Olvin 6.5x35mm 1217-35-500 - [id number] Implanted:Qty : 1 on 12/04/2021 by Hudson Vences MD at [facility] Metallic Hardware/An chor Left: Hip [employer] [id number] 08/04/2031 [id number] / / [id number] Imp Scr Bone Can Olvin 6.5x25mm 1217-25-500 - [id number] Implanted:Qty : 1 on 12/04/2021 by Hudson Vences MD at [facility] Metallic Hardware/An chor Left: Hip [employer] [id number] 08/04/2031 [id number] / / [id number] Imp Shell Acet Depuy [place] Gription 58mm [id number] - [id number] Implanted:Qty : 1 on 12/04/2021 by Hudson Vences MD at [facility] Total Joint Component/I nsert Left: Hip [employer]- [id number] 10/04/2031 [id number] / / [id number] Imp Insert Hip Depuy Dallas Altrx 36mm +4 1221-36-458 - [id number] Implanted:Qty : 1 on 12/04/2021 by Hudson Vences MD at [facility] Total Joint Component/I nsert Left: Hip [employer] [id number] 10/03/2026 1221-36-458 / / [id number] Imp Stem Fem Depuy Actis Std Collar Tpr Sz 7mm 1010-11-070 - [id number] Implanted:Qty : 1 on 12/04/2021 by Hudson Vences MD at [facility] Total Joint Component/I nsert Left: Hip [employer]- [id number] 05/06/2031 [id number] / / [id number] Imp Head Femoral Depuy Ceramic 36mm +1.5mm 1365-36-310 - [id number] Implanted:Qty : 1 on 12/04/2021 by Hudson Vences MD at [facility] Total Joint Component/I nsert Left: Hip [employer] [id number] 10/03/2026 [id number] / / [id number] Procedures Procedure Name Priority Date/Time Associated Diagnosis Comments BASIC METABOLIC PANEL STAT 11/17/2023 9:22 PM CDT LIPID PROFILE Add-On 06/06/2022 3:16 AM HOTEL YARDPERSON 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 from Last 3 [...] - BLOOD ORDERABLES Fi nal Result LABORATORY [facility] [address] Lab (1st floor, no room number) [place] [address], [facility] * (ABNORMAL) Lipid Profile (06/06/2022 3:16 AM HOTEL YARDPERSON) Cholesterol 163 <200 mg/dL 06/06/2022 5:25 PM HOTEL YARDPERSON [facility] Triglycerides 167(H) <150 mg/dL 06/06/2022 5:25 PM HOTEL YARDPERSON [facility] Direct Measure HDL 39(L) >=40 mg/dL 06/06/2022 5:25 PM HOTEL YARDPERSON [facility] LDL Cholesterol Calculated 91 <=100 mg/dL 06/06/2022 5:25 PM HOTEL YARDPERSON [facility] Non HDL Cholesterol 124 <130 mg/dL 06/06/2022 5:25 PM HOTEL YARDPERSON [facility] Blood STRUCTURE OF LEFT HAND / Unknown Venipuncture / Unknown 06/06/2022 3:16 AM HOTEL YARDPERSON 06/06/2022 3:28 AM HOTEL YARDPERSON Narrative [facility] - 06/06/2022 5:25 PM HOTEL YARDPERSON Cholesterol Desirable: <200 mg/dL Triglycerides Normal: Less [...] BLOOD ORDERAB LES Final Result [facility] [place] [facility] [address] [facility], Room [address] [place] [address], [place] [phone] from Last 3 Months or Most Recently Relevant to Health Maintenance Insurance [id number] [address] MEDICA ACCESSABILITY ENHANCED Member Subscriber Plan / Payer ( fective 2021-Present) Name:Alysia Kraus Relation to Subscriber:Self Name:Alysia Kraus Payer ID:[id number] (NAIC) Type:HMO Address: [address] [address] [place] [id number] MEDICA ACCESSABILITY ENHANCED [facility] DUAL * Guarantor: Alysia Kraus Account Type Relation to Patient Date of Phone Billing Address Medication Therapy Self [address] [place] [address] MED[employer] ACCESSABILITY ENHANCED Advance Directives For more information, please contact: [phone] * Full Code (Latest Code Status on [...] 4:26 PM 05/25/2012 3:12 PM Care Teams Cab Driver Relationship Specialty Start Date End Date [facility] [address] [place] [address] PCP - General 11/17/23 Ryne Pearce MD [address] [place], [place] [address] Urology 07/12/21 Lore Canales, PharmD [address] [facility] [place], [place] [address] Pharmacist Pharmacist 09/10/21 Ricci Carnes PA-C [address] [place], [place] [address] Physician Fuel Quality Tech Cardiovascular Disease 07/17/22 Zac Cifuentes MD [address] [place], [place] [address] Cardiovascular Disease 08/21/22
[2024-06-24 22:09] LABS: Lactate Sepsis w/Reflex* 1.2 mmol/L (0.5-1.9)
[2024-06-24 22:22] LABS: Basophils Absolute Auto 0.03 K/uL (0.00-0.30); Basophils Percent Auto 0.5 % (0.0-3.0); Eosinophils Absolute Auto 0.12 K/uL (0.00-0.50); Eosinophils Percent Auto 1.9 % (0.0-7.0); Hematocrit 42.8 % (37.0-53.0); Hemoglobin* 14.5 gm/dL (13.5-17.5); Immature Granulocytes Abs Auto 0.04 K/uL (0.00-0.30); Immature Granulocytes Pct Auto 0.6 %; Lymphocytes Percent Auto 16.7 % (20-44); Mean Corpuscular HGB Conc 34 gm/dL (32-36); Mean Corpuscular Hemoglobin 31 pg (26-34); Mean Corpuscular Volume 92 fL (80-100); Monocytes Percent Auto 10.2 % (0.0-11.0); Neutrophils Absolute Auto 4.31 K/uL (1.7-7.0); Neutrophils Percent Auto 70.1 % (42.0-72.0); Platelet Count* 163 K/uL (140-440); RDW Coefficient of Variation % 12.1 % (11.5-15.5); Red Blood Count 4.63 m/uL (4.30-5.90); White Blood Count* 6.16 K/uL (4.50-11.00)
[2024-06-24 22:23] LABS: Chloride* 99 mmol/L (96-114); Potassium* 4.2 mmol/L (3.6-5.1); Sodium* 133 mmol/L (135-149)
[2024-06-24 22:25] LABS: Slide Review Reflex No
[2024-06-24 22:26] LABS: Blood Urea Nitrogen* 11 mg/dL (7-30); Creatinine* 0.7 mg/dL (0.5-1.5); Est. Creatinine Clearance* 110.17; Estimated Glomerular Filt Rate 108 ml/min
[2024-06-24 22:27] LABS: Anion Gap 7 mEq/L (7-15); Calcium* 8.9 mg/dL (8.4-10.6); Carbon Dioxide* 27 mmol/L (20-32); Glucose* 105 mg/dL (60-115)
[2024-06-24 22:30] LABS: C Reactive Protein* 5.9 mg/dL (0.5-1.0)
[2024-06-24 22:44] LABS: Procalcitonin* 0.04 ng/mL (<0.50)
[2024-06-24] MEDS: cephALEXin 500 MG CAPSULE PO (23:13)
== END 2024-06-24 23:17 | disposition home or self-care (01) ==
PROVIDERS: Emergency Provider Emergency Medicine; PCP Family Medicine
DX: N49.2 Inflammatory disorders of scrotum (principal)
CPT/HCPCS: 36415; 76870; 80048; 81001; 83605; 84145; 85025; 86140; 93976; 99284; A9270

== ENCOUNTER 2024-12-19 10:44 | Emergency (ER) | payer MEDICARE, SELFPAY ==
--- OUTSIDE RECORDS SUMMARY | 2024-12-19 10:47 | XMS_ITS | Encounter Summary ---
Author Organization [place] Address [address] [place] [address] Care Team Providers Care Director Of Market Intelligence Name Role Phone John Sellers MD Primary Care Provider Carnes, Anah E PA-C Unavailable +[phone] Ryne Pearce MD Unavailable [phone] Lore Canales PharmD Unavailable Lore Canales PharmD Unavailable [phone] Ryne Pearce MD Unavailable [phone] Lore Canales PharmD Unavailable [phone] Mela Delgado APRN PUBLIC SAFETY OFFICER Unavailable [phone] Carnes, Anah E PA-C Unavailable + [phone] Zac Cifuentes MD Unavailable +[phone] Carnes, Anamyriam E PA-C Unavailable + [phone] Zac Cifuentes MD Unavailable [phone] 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 Gender Identity Male 11/08/2020 4:27 PM CDT [...] of this encounter Care Teams Director Of Market Intelligence Relationship Specialty Start Date End Date John Sellers MD PCP - General Family Medicine - Sports Medicine 04/03/17 11/16/[address] [address] PCP - General 11/17/23 Ricci Carnes PA-C [address] [place] [address] Assigned Heart and Vascular Provider 06/20/20 04/25/22 Ryne Pearce MD [address] [address] Urology 07/12/21 Lore Canales, PharmD [address] [place] [address] [place] [address] Pharmacist Pharmacist 09/10/21 Lore Canales, DarrenD [address] [facility] [place] [address] Assigned MTM Pharmacist 09/14/21 12/20/21 Ryne Pearec MD [address] [facility] [place] [id number] Assigned Surgical Provider 09/28/21 03/27/23 Lore Canales, DarrenD [address] [address] Assigned MTM Pharmacist 01/01/22 04/03/23 Mela Delgado APRN PUBLIC SAFETY OFFICER [address] [place] [address] Assigned Heart and Vascular Provider 04/26/22 08/15/22 Ricci Carnes PA-C [address] [place] [address] Physician Expressive Music Therapist Cardiovascular Disease 07/17/22 Zac Cifuentes MD [address] [place] [address] Cardiovascular Disease 08/21/22 Ricci Carnes PA-C [address] [place] [address] Assigned Heart and Vascular Provider 08/16/22 09/05/22 Zac Cifuentes MD [address] [place] [address] Assigned Heart and Vascular Provider 09/06/22 03/27/24 documented as of this encounter
--- OUTSIDE RECORDS SUMMARY | 2024-12-19 10:47 | XMS_ITS | Encounter Summary ---
Author Organization [place] Address [address] [place] [address] Care Team Providers Care Mold Insert Changer Name Role Phone John Sellers MD Primary Care Provider Carnes, Anah E PA-C Unavailable + [phone] Ryne Pearce MD Unavailable [phone] Lore Canales PharmD Unavailable [phone] Lore Canales PharmD Unavailable [phone] Ryne Pearce MD Unavailable [phone] Lore Canales PharmD Unavailable [phone] Mela Delagdo APRN DONKEY DOCTOR Unavailable +[phone] Carnes, Anah E PA-C Unavailable +[phone] Zac Cifuentes MD Unavailable +[phone] Carnes, Anah E PA-C Unavailable + [phone] Zac Cifuentes MD Unavailable +[phone] [facility] [place] Primary Care Provider Encounter Details Date Type Department Care Team (Late st Contact Info) Description 12/12/2020 [facility] [address] [place] [address] Lidya Yancey, RN Social History Tobacco Use Types Packs/Day Years Used Date Smoking Tobacco: Never Smokeless Tobacco: Never Alcohol Use Standard Drinks/Week Comments No 0 (1 standard drink = 0.6 oz pur e alcohol) Sex and Gender Information Value Date Recorded Sex Assigned at Male 11/08/2020 4:27 PM CDT 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 Gender Identity Male 11/08/2020 4:27 PM [...] documented as of this encounter Care Teams Mold Insert Changer Relationship Specialty Start Date End Date John Sellers MD PCP - General Family Medicine - Sports Medicine 04/03/17 11/16/[address] [address] PCP - General 11/17/23 Ricci Carnes PA-C [address] [place] [address] Assigned Heart and Vascular Provider 06/20/20 04/25/22 Ryne Pearce MD [address] [address] Urology 07/12/21 Lore Canales, PharmD [address] [place] [address] [place] [address] Pharmacist Pharmacist 09/10/21 Lore Canales, DarrenD [address] [facility] [place] [address] Assigned MTM Pharmacist 09/14/21 12/20/21 Ryne Pearce MD [address] [facility] [place] [address] Assigned Surgical Provider 09/28/21 03/27/23 oLre Canales, DarrenD [address] [address] Assigned MTM Pharmacist 01/01/22 04/03/23 Mela Delgado APRN DONKEY DOCTOR [address] [place] [address] Assigned Heart and Vascular Provider 04/26/22 08/15/22 Ricci Carnes PA-C [address] [place] [address] Physician Solution Advisor Cardiovascular Disease 07/17/22 Zac Cifuentes MD [address] [place] [address] Cardiovascular Disease 08/21/22 Ricci Carnes PA-C [address] [place] [address] Assigned Heart and Vascular Provider 08/16/22 09/05/22 Zac Cifuentes MD [address] [place] [address] Assigned Heart and Vascular Provider 09/06/22 03/27/24 documented as of this encounter
--- OUTSIDE RECORDS SUMMARY | 2024-12-19 10:47 | XMS_ITS | Clinical Summary ---
Author Organization [facility] Address [address] [place] [address] Care Team Providers Care Floor Covering Layer Name Role Phone Stefan Barron MD Unavailable [phone] Marko Bunch DO Unavailable [phone] Ignacio Mckeon MD Primary Care Provider [phone] Allergies Active Allergy Reactions Criticality Noted Date Comments Bee Venom Protein (Honey Bee) Edema 01/06/2022 Cephalexin Anaphylaxis High 12/23/2021 Divalproex Sodium *Unknown - Pt Doesn't Remember 10/23/2009 Depakote Weight gain [place] *Unknown 10/23/2009 Weight gain and thirst Morphine [...] daily. 360 Tablet 3 023 Active Ascorbic Fvfr-Jznlpiwlz-Jp n (Emergen-C) 1,000 mg pwepIndications:W ellness examination [...] mouth every 8 hours if needed for Nausea/Vomiting . 30 Tablet 3 024 Active ipratropium (ATROVENT NASAL) 42 mcg (0.06 %) nasal sprayIndications: Environmental allergies INHALE 2 SPRAYS INTO AFFECTED NOSTRIL(S) THREE TIMES DAILY NEEDED FOR ALLERGY SYMPTOMS. 15 mL 024 Active OLANzapine (ZYPREXA ZYDIS) 5 mg disintegrating tabletIndications :Bipolar I disorder (HC) DISSOLVE 1 TABLET IN MOUTH IN THE MORNING 90 Tablet 024 Active multivitamin (MVI) tabletIndications :Wellness examination Take 1 tablet by mouth once daily 90 Tablet 3 025 Active fluticasone (50 mcg per actuation) nasal solution (FLONASE)Indicati ons:Environmental allergies Inhale 2 Sprays in both nostrils once daily if needed for Rhinitis. 025 Active ibuprofen 200 mg tabletIndications :Musculoskeletal pain Take 3 Tablets (600 mg) by mouth every 6 hours if needed for Pain. 025 Active rosuvastatin 20 mg tabletIndications :Hyperlipidemia, unspecified hyperlipidemia type TAKE 1 TABLET BY MOUTH ONCE DAILY WITH EVENING MEAL 90 Tablet 1 025 Active sodium chloride 1,000 mg soluble tabletIndications :Hyponatremia Take 1 tablet by mouth once daily 90 Tablet 1 025 Active cholecalciferol (Vitamin D3) 5,000 unit tab tabletIndications :Vitamin D deficiency Take 1 tablet by mouth once daily 90 Tablet 3 025 Active lisinopriL (PRINIVIL; ZESTRIL) 10 mg tabletIndications :Primary hypertension Take 1 tablet by mouth once daily 30 Tablet 025 Active tamsulosin 0.4 mg capsuleIndication s:Polyuria Take 1 Capsule (0.4 mg) by mouth once daily after a meal. 30 Capsule 025 Active omeprazole (PRILOSEC) 20 mg Delayed-Release capsuleIndication s:GERD without esophagitis Take 1 Capsule (20 mg) by mouth once daily before a meal. FOR ACID REFLUX 30 Capsule 025 Active aspirin enteric coated 81 mg tabletIndications :Primary hypertension Take 1 Tablet (81 mg) by mouth once daily with a meal. 30 Tablet 025 Active famotidine (PEPCID) 20 mg tabletIndications :GERD without esophagitis Take 1 Tablet (20 mg) by mouth two times daily. 60 Tablet 025 Active metoprolol tartrate (LOPRESSOR) 50 mg tabletIndications :Primary hypertension Take 1 Tablet (50 mg) by mouth two times daily. 60 Tablet 025 Active sennosides-docusa te (SENOKOT S) (8.6-50 mg) tabletIndications :Chronic constipation TAKE 1 TO 2 TABLETS BY MOUTH ONCE TO TWICE DAILY NEEDED FOR CONSTIPATION 60 Tablet 025 Active tamsulosin 0.4 mg capsuleIndication s:Polyuria TAKE 1 CAPSULE BY MOUTH ONCE DAILY AFTER A MEAL FOR URINARY SYMPTOMS. DO NOT CRUSH OR CHEW. DO NOT ADMINISTER VIA FEEDING TUBE. 90 Capsule 1 025 2024 Discontinued omeprazole (PRILOSEC) 20 mg Delayed-Release capsuleIndication s:GERD without esophagitis TAKE 1 CAPSULE BY MOUTH ONCE DAILY BEFORE A MEAL FOR ACID REFLUX 90 Capsule 1 025 2024 Discontinued lisinopriL 10 mg tabletIndications :Primary hypertension Take 1 tablet by mouth once daily 90 Tablet 1 025 2024 Discontinued metoprolol tartrate 50 mg tabletIndications :Primary hypertension Take 1 tablet by mouth twice daily 180 Tablet 1 025 2024 Discontinued(* Availability/F ormulary change/Cost of medication) aspirin 81 mg enteric coated tabletIndications :Primary hypertension TAKE 1 TABLET BY MOUTH ONCE DAILY WITH A MEAL 90 Tablet 025 2024 Discontinued(* Availability/F ormulary change/Cost of medication) famotidine 20 mg tabletIndications :GERD without esophagitis TAKE 1 TABLET BY MOUTH TWICE DAILY FOR ACID REFLUX. 180 Tablet 025 2024 Discontinued sennosides-docusa te (SENOKOT S) (8.6-50 mg) tabletIndications :Chronic constipation TAKE 1 TO 2 TABLETS BY MOUTH ONCE TO TWICE DAILY NEEDED FOR CONSTIPATION 180 Tablet 1 025 2024 Discontinued(* Availability/F ormulary change/Cost of medication) famotidine (PEPCID) 20 mg tabletIndications :GERD without esophagitis TAKE 1 TABLET BY MOUTH TWICE DAILY FOR ACID REFLUX 180 Tablet 025 2024 Discontinued(* Availability/F ormulary change/Cost of medication) omeprazole (PRILOSEC) 20 mg Delayed-Release capsuleIndication s:GERD without esophagitis TAKE 1 CAPSULE BY MOUTH ONCE DAILY BEFORE A MEAL FOR ACID REFLUX 30 Capsule 025 2024 Discontinued(R eorder (E-cancel not sent)) tamsulosin 0.4 mg capsuleIndication s:Polyuria TAKE 1 CAPSULE BY MOUTH ONCE DAILY AFTER A MEAL FOR URINARY SYMPTOMS. DO NOT CRUSH OR CHEW. DO NOT ADMINISTER VIA FEEDING TUBE. 30 Capsule 025 2024 Discontinued(R eorder (E-cancel not sent)) aspirin enteric coated 81 mg tabletIndications :Primary hypertension Take 1 Tablet (81 mg) by mouth once daily with a meal. 90 Tablet 025 2024 Discontinued(* Error/order entry clerk error) famotidine (PEPCID) 20 mg tabletIndications :GERD without esophagitis Take 1 Tablet (20 mg) by mouth two times daily. 120 Tablet 025 2024 Discontinued(* Error/order entry clerk error) metoprolol tartrate (LOPRESSOR) 50 mg tabletIndications :Primary hypertension Take 1 Tablet (50 mg) by mouth two times daily. 120 Tablet 025 2024 Discontinued(* Error/order entry clerk error) sennosides-docusa te (SENOKOT S) (8.6-50 mg) tabletIndications :Chronic constipation TAKE 1 TO 2 TABLETS BY MOUTH ONCE TO TWICE DAILY NEEDED FOR CONSTIPATION 180 Tablet 025 2024 Discontinued(* Error/order entry clerk error) Active Problems Problem Noted Date Diagnosed Date Environmental allergies 06/27/2024 Pain and swelling of lower extremity 11/25/2023 Anticoagulation monitoring, INR range 2-3 2022 Hypercholesterolemia 06/25/2022 Overview (08/17/2022): 2022: Rosuvastatin (Crestor) started by Kicking Machine Operator??? DVT (deep venous thrombosis) 12/21/2021 Overview (11/25/2023): [...] left knee 09/14/2019 Overview (09/14/2019): September 2019: [facility] Left knee Injection PAC (premature atrial contraction) 06/19/2019 Overview (06/19/2019): June 2019: see [facility] [place] [facility] consult note, had Stress test and monitor, only found PAC and PVC. Screening for colon cancer 09/27/2017 Overview (09/27/2017): September 2017: screening Colonoscopy at [facility]. Repeat recommended 10 years, so 2027. Myopia of both eyes with astigmatism and presbyo breanna 08/10/2017 Color vision deficiencies 08/10/2017 Internal hemorrhoid, bleeding 04/07/2017 Overview (04/07/2017): March 2017: [facility] emergency room, anoscopy showed Internal bleeding hemorrhoid. Hip pain, left 03/16/2017 Overview (03/16/2017): [facility] has documentation of a left intra-articular hip injection on May 07, 2016. Retention of urine 08/04/2016 Overview (11/12/2021): Saw urology 08/01/16. On flomax, [facility] up yearly per note 01/2017. Saw urology 08/01/16. [place]om[facility], [facility] yearly per note 01/2017. [...] Encounters Date Type Department Care Team Description 12/09/2024 Refill [facility] [address] [place] [address] Ignacio Mckeon MD Refill Request (omeprazole (PRILOSEC) 20 mg Delayed-Release capsule/metoprolol tartrate 50 mg tablet/tamsulosin 0.4 mg capsule/aspirin 81 mg enteric coated tablet/sennosides-docus ate (SENOKOT S) (8.6-50 mg) tablet/famotidine (PEPCID) 20 mg tablet/) 11/30/2024 Refill [facility] [address] [place] [address] Ignacio Mckeon MD Refill Request (Lisinopril) 11/27/2024 Refill [facility] [address] [place] [address] Ignacio Mckeon MD Refill Request (Omeprazole, Tamsulosin) 11/17/2024 Refill [facility] [address] [facility] [place] [address] Ignacio Mckeon MD Refill Request (Famotidine) 10/13/2024 Refill [facility] [address] [place] [address] Ignacio Mckeon MD Refill Request (senna-docusate) from Last 3 Months Immunizations Immunization Administration [...] on file Legal 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 Gender Identity Not on file Sexual Orientation Not on file Obstetrics History Last Filed Vital Signs Vital Sign Reading Time Taken Comments Blood Pressure 134/70 11/24/2023 3:35 PM CDT Pulse 80 11/24/2023 3:35 PM CDT Temperature 36.7 C (98.1 F) 04/17/2023 8:28 AM FILM COLOR TESTER Respiratory Rate 16 11/05/2022 8:50 AM CDT Oxygen Saturation 98% 04/17/2023 8:28 AM FILM COLOR TESTER Inhaled Oxygen Concentration - - Weight 142.9 kg (315 lb) 11/24/2023 3:35 PM CDT Height 170.5 cm (5' 7.13) 07/16/2022 9:58 AM CD T Body Mass Index 49.15 07/16/2022 9:58 AM CDT Plan of Treatment Upcoming Encounters Date Type Department Care Team (Late st Contact Info) Description 12/23/2024 10:45 AM CDT Office Visit [facility] [address] [place] [place] [address] John Sellers MD [address] [place] [address] Health Maintenance Due Date Last Done Comments Hepatitis B series for 19+ ( 1 of 3 - 19+ 3-dose series) 07/20/1986 Pneumococcal series for age 50+ (1 of 2 - PCV) 07/20/1986 Zoster (shingles) series for age 50+ (1 of 2) 07/20/2017 BMI (ht and wt on same day) for age 18+ 07/17/2023 07/16/2022, 06/13/2022, 11/12/2021, Additional history exists Depression screening for age 12+ 07/19/2023 07/18/2022, 07/18/2022, 07/16/2022, Additional history exists COVID-19 vaccine series ( season) 2024 04/02/2022, 11/12/2021, 02/06/2021, Additional history exists Influenza Vaccine (#1) 2024 , 01/17/2021, 01/09/2020, Additional history exists Colonoscopy through age 75 09/22/202709/21, 09/21/2017, 09/21/2017 Lipids for age 45-75 09/24/2027 09/23/2022, 01/23/2021, 10/31/2019, Additional history exists Tetanus booster 11/16/2033 11/17/2023, 02/04, 01/04/2006 RSV vaccine for adults or (1 - 1-dose 75+ series) 07/20/2042 HIV for age 15-65 Completed 03/16/2017 Hepatitis C screening for ag e 18-79 Completed 05/16/2022 Procedures Procedure Name Priority Date/Time Associated Diagnosis Comments LIPID PANEL W REFLEX MEASURED LDL Routine 09/23/2022 8:00 AM CDT Hyperlipidemia, unspecified hyperlipidemia type LC HCV ANTIBODY RFX TO QUANT PCR Routine 05/16/2022 9:10 AM FILM COLOR TESTER Wellness examination SCAN-COLONOSCOPY 09/21/2017 12:0 0 AM CDT ANTI HIV 1/2 Routine 03/16/2017 10:16 AM FILM COLOR TESTER Screening for HIV (human immunodeficiency virus) from Last 3 Months or Most Recently Relevant to Health Maintenance Results * LIPID PANEL W REFLEX MEASURED LDL (09/23/2022 8:00 AM CDT) CHOLESTEROL,TOTAL 137 100 - 199 mg/dL 09/23/2022 5:03 PM CDT [facility] Comment: Cholesterol, Total Reference Ranges Desirable <200 mg/dL Borderline 200-239 mg/dL High >=240 mg/dL TRIGLYCERIDES 84 <150 mg/dL 09/23/2022 5:03 PM CDT [facility] HDL CHOLESTEROL 58 >40 mg/dL 5:03 PM CDT [facility] NON-HDL CHOLESTEROL 79 <145 mg/dl 09/23/2022 5:03 PM CDT [facility] CHOL/HDL RATIO 2.36 <4.50 09/23/2022 5:03 PM CDT [facility] LDL CHOLESTEROL 62 <=130 mg/dL 09/23/2022 5:03 PM CDT [facility] VLDL CHOLESTEROL 17 <=30 mg/dL 09/23/2022 5:03 PM CDT [facility] PROVIDER ORDERED STATUS RANDOM 09/23/2022 5:03 PM CDT [facility] Blood BLOOD SPECIMEN / Unknown [place] / Unknown 09/23/2022 8:00 AM CDT 09/23/2022 10:23 AM CDT us Elena Lawson DO CHEMISTRY Final [facility]ul [facility] [address] [place] [address], [place] * LC HCV ANTIBODY RFX TO QUANT PCR (05/16/2022 9:10 AM FILM COLOR TESTER) Pathologist [facility] HCV Ab Non Reactive Non Reactive 05/20/2022 10:06 PM FILM COLOR TESTER [facility] Blood BLOOD SPECIMEN / Unknown Venipuncture / Unknown 05/16/2022 9:10 AM FILM COLOR TESTER 05/16/2022 9:10 AM FILM COLOR TESTER Narrative [facility] ([facility]) - 05/20/2022 10:06 PM FILM COLOR TESTER Performed at: [address] [id number] Biosecurity Officer: Kane Lane MD, Phone: [phone] us Ignacio Mckeon MD LABORATORY Final Resul t [facility] ([facility]) [facility] [place] [address], * SCAN-COLONOSCOPY (09/21/2017 12:00 AM CDT) us Scanner OTHER Final Result * ANTI HIV 1/2 [[id number]] (03/16/2017 10:16 AM FILM COLOR TESTER) [facility] HIV-1/HIV-2 ANTIBODY Non-Reacti ve Non-Reacti ve 03/16/2017 2:37 PM FILM COLOR TESTER [facility] Blood BLOOD SPECIMEN / Unknown Venipuncture / Unknown 03/16/2017 10:16 AM FILM COLOR TESTER 03/16/2017 10:17 AM FILM COLOR TESTER Narrative [facility] - 03/16/2017 2:37 PM FILM COLOR TESTER HIV-1 p24 and HIV-1/HIV-2 Ab not detected us John Sellers MD SEND OUTS Final Res ult [facility] [address] [place] [address], [place] from Last 3 Months or Most Recently Relevant to Health Maintenance Insurance MEDICARE PB ONLY MEDICARE PART B HB ONLY WORKERS COMP Advance Directives Documents on File Type Date Recorded Patient Billing Checker Expl anation Treatment Guidelines 12/13/2020 * Full Code (Latest Code Status on File) Date Activated Date Inactivated Comments 09/17/2011 2:24 PM 09/17/2011 7:18 PM Care Teams Floor Covering Layer Relationship Specialty Start [place] [address] [place] [address] PCP - General Family Practice 01/23/22 Stefan Barron MD [facility] [place] [address] Psychiatry Psychiatry 03/16/17 Marko Bunch DO [facility] [place] [address] Family Practice 01/17/21
--- OUTSIDE RECORDS SUMMARY | 2024-12-19 10:48 | XMS_ITS | Clinical Summary ---
Author Organization [facility] Address [address] [place] [address] Care Team Providers Care Piano And Organ Refinisher Name Role Phone Ryne Pearce MD Unavailable [phone] Lore CanalesD Unavailable [phone] Ricci Carnes PA-C Unavailable [phone] Zac Cifuentes MD Unavailable [phone] Olivier, Cristy Grady Primary Care Provider Allergies Active Allergy Reactions Criticality Noted Date Comments Divalproex Sodium Other (See Comments) 07/10/19 12 Weight gain and excessive sedation [place] Palpitations Low 05/17/2008 Diarrhea, nausea, Morphine Itching [...] WITH SUPPER, Reported on 06/05/2022 nystatin (MYCOSTATIN) 335469 UNIT/GM external powder Apply topically 2 times [...] mg by mouth At Bedtime Active senna-docusate (SENOKOT-S/BRNE COLACE) 8.6-50 MG tablet Take 1 tablet by mouth 2 times daily Active rosuvastatin (CRESTOR) 20 MG tabletIndicatio ns:Coronary artery disease involving [place] coronary artery of [place] heart without angina pectoris Take 1 tablet [...] left knee 09/14/2019 Overview (09/04/2021): September 2019: [facility] Left knee Injection PAC (premature atrial contraction) 06/19/2019 Overview (09/04/2021): June 2019: see [facility], had Stress test and monitor, only found PAC and PVC. Screening for colon cancer 09/27/2017 Overview (09/04/2021): September 2017: screening Colonoscopy at [facility]. Repeat recommended 10 years, so 2027. Color vision deficiencies 08/10/2017 Myopia of both eyes with astigmatism and presbyo breanna 08/10/2017 Internal hemorrhoid, bleeding 04/07/2017 Overview (09/04/2021): March 2017: [facility] emergency room, anoscopy showed Internal bleeding hemorrhoid. Hip pain, left 03/16/2017 Overview (09/04/2021): [facility] has documentation of a left intra-articular hip injection on May 07, 2016. Retention of urine 08/04/2016 Overview (09/04/2021): Saw urology 08/01/16. On flomax, [facility] follow up yearly per note 01/2017. [...] by heart doctor. 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 Gender Identity Male 11/08/2020 4:27 PM [...] SIG 1965 sDNA (Cologuard) 1965 HEPATITIS B VACCINE (1 of 3 - 19+ 3-dose series) 07/20/1986 PNEUMOCOCCAL VACCINE 50+ YEARS (1 of 1 - PCV) 07/20/2017 ZOSTER VACCINE (1 of 2) 07/20/2017 LIPID 06/07/2023 06/06/2022, 03/0 05/2022, 08/30/2021 MEDICARE ANNUAL WELLNESS VISIT 07/17/2023 07/16/2022, 01/17/2021, 01/09/2020 PHQ-2 (once per calendar year) 2024 08/14/2022 BMP 11/16/2024 11/17/2023, 03/0 06/2022, 06/05/2022, Additional history exists COVID-19 VACCINE ( season) 2024 04/02/2022, 11/12/2021, 02/06/2021, Additional history exists INFLUENZA VACCINE (#1) 2024 , 01/17/2021, 01/09/2020, Additional history exists DIABETES SCREENING 11/16/2026 11/17/2023, 0 06/06/2022, 06/05/2022, Additional history exists COLONOSCOPY 09/22/2027 09/21/2017 COLORECTAL CANCER SCREENING 09/22/2027 DTAP/TDAP/TD VACCINE (3 - Td or Tdap) 11/16/2033 11/17/2023, 02/18/2016, 03/17/2006, Additional history exists HIV SCREENING Completed 03/16/2017 HEPATITIS C SCREENING Completed 05/16/2022 HPV VACCINE (No Doses Required) Completed MENINGITIS VACCINE Aged Out No longer eligible based on patient's age to complete this topic Medical Devices Implanted Type Area Bankruptcy Assistant Device Identifier Shelf Expiration Date Model / Serial / Lot Imp [place] Hole Eliminator Hip Depuy Duraloc 1246-03-000 - [id number] Implanted:Qty : 1 on 12/04/2021 by Hudson Vences MD at [facility] Metallic Hardware/An chor Left: Hip [employer] [id number] 09/04/2031 [id number] / / [id number] Imp Scr Bone Can Olvin 6.5x35mm [id number] - [id number] Implanted:Qty : 1 on 12/04/2021 by Hudson Vences MD at [facility] Metallic Hardware/An chor Left: Hip [employer] [id number] 08/04/2031 [id number] / / [id number] Imp Scr Bone Can Olvin 6.5x25mm [id number] - [id number] Implanted:Qty : 1 on 12/04/2021 by Hudson Vences MD at [facility] Metallic Hardware/An chor Left: Hip [employer] [id number] 08/04/2031 [id number] / / [id number] Imp Shell Acet Depuy Austin Gription 58mm [id number] - [id number] Implanted:Qty : 1 on 12/04/2021 by Hudson Vences MD at [facility] Total Joint Component/I nsert Left: Hip [employer] [id number] 10/04/2031 [id number] / / [id number] Imp Insert Hip Depuy Austin Altrx 36mm +4 [id number] - [id number] Implanted:Qty : 1 on 12/04/2021 by Hudson Vences MD at [facility] Total Joint Component/I nsert Left: Hip [employer] [id number] 10/03/2026 [id number] / / [id number] Imp Stem Fem Depuy Actis Std Collar Tpr Sz 7mm 1010-11-070 - [id number] Implanted:Qty : 1 on 12/04/2021 by Hudson Vences MD at [facility] Total Joint Component/I nsert Left: Hip [employer] [id number] 05/06/2031 [id number] / / [id number] Imp Head Femoral Depuy Ceramic 36mm +1.5mm [id number] - [id number] Implanted:Qty : 1 on 12/04/2021 by Hudson Vences MD at [facility] Total Joint Component/I nsert Left: Hip [employer] [id number] 10/03/2026 [id number] / / [id number] Procedures Procedure Name Priority Date/Time Associated Diagnosis Comments BASIC METABOLIC PANEL STAT 11/17/2023 9:22 PM CDT LIPID PROFILE Add-On 06/06/2022 3:16 AM CENTRAL OFFICE OPERATOR Coronary artery disease involving kluti kaah coronary artery of [place] heart without angina pectoris from Last 3 Months or Most Recently Relevant to Health Maintenance Results * (ABNORMAL) Basic metabolic panel (11/17/2023 9:22 PM CDT) Sodium 138 135 - 145 mmol/L 11/17/2023 9:44 PM CDT LABORATORY Potassium 4.2 3.4 - 5.3 mmol/L 11/17/2023 9:44 PM CDT LABORATORY Chloride 100 98 - 107 mmol/L 11/17/2023 9:44 PM CDT LABORATORY Carbon Dioxide (CO2) 24 22 - 29 mmol/L 11/17/2023 9:44 PM CDT LABORATORY Anion Gap 14 7 - 15 mmol/L 11/17/2023 9:44 PM CDT LABORATORY Urea Nitrogen 13.5 6.0 - 20.0 mg/dL 11/17/2023 9:44 PM CDT LABORATORY Creatinine 0.83 0.67 - 1.17 mg/dL 11/17/2023 9:44 PM CDT [facility] GFR Estimate >90 >60 mL/min/1.7 3m2 11/17/2023 9:44 PM CDT [facility] Comment:eGFR calculated us2020 CKD-EPI equation. Calcium 8.8 8.8 - 10.4 mg/dL 11/17/2023 9:44 PM CDT LABORATORY Comment:Reference intervals for this test were updated on 10/20/2023 to reflect our healthy population more accurately. There may be differences in the flagging of prior results with similar values performed with this method. Those prior results can be interpreted in the context of the updated reference intervals. Glucose 108(H) 70 - 99 mg/dL 11/17/2023 9:44 PM CDT LABORATORY Blood BLOOD SPECIMEN / Unknown Venipuncture / Unknown 11/17/2023 9:22 PM CDT 11/17/2023 9:26 PM CDT us Kenny Leal MD LAB - BLOOD ORDERABLES Fi nal Result LABORATORY [facility] [address] Lab (1st floor, no room number) [place] [address], [facility] * (ABNORMAL) Lipid Profile (06/06/2022 3:16 AM CENTRAL OFFICE OPERATOR) Cholesterol 163 <200 mg/dL 06/06/2022 5:25 PM CENTRAL OFFICE OPERATOR [facility] Triglycerides 167(H) <150 mg/dL 06/06/2022 5:25 PM CENTRAL OFFICE OPERATOR [facility] Direct Measure HDL 39(L) >=40 mg/dL 06/06/2022 5:25 PM CENTRAL OFFICE OPERATOR [facility] LDL Cholesterol Calculated 91 <=100 mg/dL 06/06/2022 5:25 PM CENTRAL OFFICE OPERATOR [facility] Non HDL Cholesterol 124 <130 mg/dL 06/06/2022 5:25 PM CENTRAL OFFICE OPERATOR [facility] Blood STRUCTURE OF LEFT HAND / Unknown Venipuncture / Unknown 06/06/2022 3:16 AM CENTRAL OFFICE OPERATOR 06/06/2022 3:28 AM CENTRAL OFFICE OPERATOR Narrative [facility] - 06/06/2022 5:25 PM CENTRAL OFFICE OPERATOR Cholesterol Desirable: <200 mg/dL Triglycerides Normal: Less [...] BLOOD ORDERAB LES Final Result [facility] [facility] [address] [facility] [place] [address], [place] [phone] from Last 3 Months or Most Recently Relevant to Health Maintenance Insurance MEDICA ACCESSABILITY ENHANCED [facility] DUAL * Guarantor: Alysia Kraus Account Type Relation to Patient Date of Phone Billing Address Medication Therapy Self [address] [place] [address] MEDICA ACCESSABILITY ENHANCED Advance Directives For more information, please contact: [phone] * Full Code (Latest Code Status on [...] 4:26 PM 05/25/2012 3:12 PM Care Teams Piano And Organ Refinisher Relationship Specialty Start Date End Date Clinic, [facility] [address] [facility] [place] [address] PCP - General 11/17/23 Ryne Pearce MD [address] [place] [id number] Urology 07/12/21 Lore Canales, PharmD [address] [facility] [address] [place], [place] [address] Pharmacist Pharmacist 09/10/21 Ricci Carnes PA-C [address] [facility] [place] [id number] Physician Dental Hygiene Instructor Cardiovascular Disease 07/17/22 Zac Cifuentes MD [address] [place] [address] Cardiovascular Disease 08/21/22
--- OUTSIDE RECORDS SUMMARY | 2024-12-19 10:48 | XMS_ITS | Encounter Summary ---
Author Organization [facility] Address [address] [place] [id number] Care Team Providers Care Measurer Name Role Phone John Sellers MD Primary Care Provider Trice, Ricci Esparza PA-C Unavailable [phone] Ryne Pearce MD Unavailable [phone] Lore Canales PharmD Unavailable [phone] Ryne Pearce MD Unavailable [phone] Lore Canales PharmD Unavailable [phone] Mela Delgado APRN COURTROOM CLERK Unavailable [phone] Carnes, Ricci E PA-C Unavailable [phone] Zac Cifuentes MD Unavailable [phone] Carnes, Ricci E PA-C Unavailable [phone] Zac Cifuentes MD Unavailable [phone] [facility] [place] Primary Care Provider Encounter Details Date Type Department Care Team (Late st Contact Info) Description 04/22/2022 MyC Medical Advice [facility] [place] [address] [id number] Yahaira Freeman Social History Tobacco Use Types Packs/Day Years Used Date Smoking Tobacco: Never Smokeless Tobacco: Never Alcohol Use Standard Drinks/Week Comments No 0 (1 standard drink = 0.6 oz pur e alcohol) Sex and Gender Information Value Date Recorded Sex Assigned at Male 11/08/2020 4:27 PM CDT Legal Sex Male 2:58 AM 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 Gender Identity Male 11/08/2020 4:27 PM CDT Sexual Orientation Straight 11/08/2020 4: 27 PM CDT documented as of this encounter Plan of Treatment Not on file documented as of this encounter Visit Diagnoses Not on filedocumented in this encounter Care Teams Measurer Relationship Specialty Start Date End Date John Sellers MD PCP - General Family Medicine - Sports Medicine 04/03/17 11/16/23 [facility] [id number] [place], [place] [address] [address] PCP - General 11/17/23 Ricci Carnes PA-C [address] [place] [address] Assigned Heart and Vascular Provider 06/20/20 04/25/22 Ryne Pearce MD [address] [facility] [address] [place] [address] Urology 07/12/21 Lore Canales, PharmD [address] [place], [place] [id number] [place] [address] Pharmacist Pharmacist 09/10/21 Ryne Pearce MD [address] [place] [address] Assigned Surgical Provider 09/28/21 03/27/23 Lore Canales, PharmD [address] [place], [place] [address] [place] [address] Assigned MTM Pharmacist 01/01/22 04/03/23 Mela Delgado APRN COURTROOM CLERK [address] [place] [address] Assigned Heart and Vascular Provider 04/26/22 08/15/22 Ricci Carnes PA-C [address] [place] [address] Physician Amusement Ride Inspector Cardiovascular Disease 07/17/22 Zac Cifuentes MD [address] [place] [address] MD Cardiovascular Disease 08/21/22 Ricci Carnes PACass [address] [place] [address] Assigned Heart and Vascular Provider 08/16/22 09/05/22 Zac Cifuentes MD [address] [place] [address] Assigned Heart and Vascular Provider 09/06/22 03/27/24 documented as of this encounter
[2024-12-19 11:08] VITALS: BP 144/83; PULSE 90; RESP 18; TEMP 37.1; O2SAT 95; BMI 54.0
--- NOTE | 2024-12-19 12:03 | CRLHL7_ITS ---
For Patients: As a result of the Century Cures Act, medical imaging exams and procedure reports are released immediately into your electronic medical record. You may view this report before your referring provider. If you have questions, please contact your health care provider. INDICATION: Abdominal pain for a week, nausea TECHNIQUE: CT abdomen and pelvis acquired with 150 cc Isovue 370 IV contrast. COMPARISON: None. FINDINGS: Lower chest: Left lower lobe solid pulmonary nodule measuring 6 mm. Liver: Unremarkable. Normal in size and attenuation. No suspicious masses. Gallbladder and bile ducts: Prior cholecystectomy. No biliary dilatation. Pancreas: Unremarkable. No mass or inflammation. Spleen: Unremarkable. Normal in size. No masses. Adrenal glands: Unremarkable. No nodules. Kidneys: Endophytic right interpolar renal lesion measuring 1.6 cm, with possible borderline intermediate attenuation. No suspicious masses, stones, or hydronephrosis. GI tract: Unremarkable. Normal in caliber. No sign of mass or inflammation. Normal appendix. Vasculature: Abdominal aorta is normal in caliber. Mesenteric arteries are patent. Lymph nodes: No lymphadenopathy. Peritoneum/Abdominal Wall: Bilateral fat containing inguinal hernias. No sign of mass or infiltration. No free air or significant free fluid. Pelvis: Unremarkable. Bones: Left hip arthroplasty. Right hip degenerative change. IMPRESSION: 1. Exam slightly limited by photon starvation artifact from arms down position. Within this limitation, no acute findings are appreciated. 2. Left lower lobe solid pulmonary nodule measuring 6 mm. Depending on patient risk factors, follow-up chest CT can be considered in 6-12 months to assess stability 3. Endophytic right renal cystic lesion with borderline intermediate attenuation, although this is likely artifactual from patient positioning. Please note that all CT scans at this facility use dose modulation, iterative reconstruction, and/or weight-based dosing when appropriate to reduce radiation dose to as low as reasonably achievable. Dictated by Maria Eugenia Rubio MD @ 12/19/2024 1:37:33 PM (Electronically Signed)
[2024-12-19 12:40] LABS: Creatinine, Point-of-Care* 0.8 mg/dl (0.6-1.3)
[2024-12-19 13:01] LABS: Albumin* 4.2 g/dL (3.3-5.0); Chloride* 97 mmol/L (96-114); Potassium* 4.1 mmol/L (3.6-5.1); Sodium* 129 mmol/L (135-149)
[2024-12-19 13:03] LABS: Alanine Aminotransferase* 17 U/L (4-50); Aspartate Amino Transferase* 31 U/L (12-35); Blood Urea Nitrogen* 14 mg/dL (7-30); Creatinine* 0.7 mg/dL (0.5-1.5); Est. Creatinine Clearance* 108.86; Estimated Glomerular Filt Rate 107 ml/min
[2024-12-19 13:04] LABS: Alkaline Phosphatase* 72 U/L (40-150); Anion Gap 5 mEq/L (7-15); Bilirubin Total* 0.4 mg/dL (0.1-1.5); Calcium* 8.8 mg/dL (8.4-10.6); Carbon Dioxide* 27 mmol/L (20-32); Glucose* 114 mg/dL (60-115); Total Protein* 7.1 g/dL (6.0-8.3)
[2024-12-19 13:16] LABS: Appearance Urine Clear (Clear)
--- NOTE | 2024-12-19 13:18 | ED.NAVMDI ---
HPI - Nausea/Vomiting/Diarrhea General Date Seen: 12/19/24 Chief complaint: Diarrhea Stated complaint: would like to discuss with doctor privately Time Seen by Provider: 12/19/24 11:29 Source: patient Mode of arrival: ambulatory Limitations: no limitations History of Present Illness HPI Narrative: Patient is a 59-year-old male with a history of bipolar disease, anxiety presenting to the emergency department for abdominal pain and diarrhea. States foot past week he has been having some more abdominal pain. Pain does not seem to be getting any better. Denies having pain like this before. Has had previous cholecystectomy. States about 5 days ago he began to have diarrhea. Describes as loose and occasionally darker but has not been black. Has not noticed any roxanne blood in his stool. States occasionally it is watery. States his last formed stool was a week ago. Has use some Zofran for then associated nausea with mild improvement. Has not had any fevers or chills. States he feels mildly lightheaded. Denies any chest pain or shortness of breath. Denies dysuria. Does states he is able to eat and drink normally. Is also concerned about a rash in his genital region. Is concerned could be a yeast infection. Related Data Home Medications ?Medication ?Instructions ?Recorded ?Confirmed aripiprazole 15 mg tablet 15 mg PO DAILY 12/06/21 12/19/24 ascorbic acid (vitamin C) 1,000 mg 1 g PO DAILY 12/06/21 12/19/24 capsule buspirone 5 mg tablet 5 mg PO TID 12/06/21 12/19/24 carbamazepine 200 mg tablet 400 mg PO BID 12/06/21 12/19/24 cholecalciferol (vitamin D3) 125 125 mcg PO DAILY 12/06/21 12/19/24 mcg (5,000 unit) capsule famotidine 20 mg tablet 20 mg PO Q12H 12/06/21 12/19/24 metoprolol tartrate 50 mg tablet 50 mg PO BID 12/06/21 12/19/24 multivitamin with iron-mineral 1 tab PO DAILY 12/06/21 12/19/24 olanzapine 5 mg disintegrating 5 mg PO HS 12/06/21 12/19/24 tablet polyethylene glycol 3350 17 17 g PO DAILY 12/06/21 10/29/22 gram/dose oral powder psyllium husk (with sugar) 3 1 tbsp PO DAILY 12/06/21 10/29/22 gram/7 gram oral powder (Metamucil (with sugar)) sennosides 8.6 mg-docusate sodium 1 tab-cap PO BID 12/06/21 12/19/24 50 mg tablet (Senokot-S) tamsulosin 0.4 mg capsule 0.4 mg PO DAILY 12/06/21 12/19/24 sodium chloride 1,000 mg soluble 1,000 mg 12/09/21 tablet aspirin 81 mg tablet,delayed 81 mg PO DAILY 10/29/22 12/19/24 release (Adult Aspirin Regimen) lisinopril 10 mg tablet 10 mg PO DAILY 10/29/22 12/19/24 rosuvastatin 20 mg tablet 20 mg PO QPM 10/29/22 12/19/24 sennosides 8.6 mg-docusate sodium 1 tab-cap PO QHS 10/29/22 10/29/22 50 mg tablet (2-in-1 Laxative) omeprazole 20 mg capsule,delayed 20 mg PO DAILY acid reflux 12/19/24 12/19/24 release Previous Rx's ?Medication ?Instructions ?Recorded clotrimazole 1 % topical cream 1 applic topical BID 5 days #15 12/19/24 grams Allergies Allergy/AdvReac Type Severity Reaction Status Date / Time lithium Allergy Intermediate Palpitation Verified 10/29/22 18:40 s divalproex sodium (From AdvReac Intermediate Weight Verified 10/29/22 18:40 Depakote) Gain and Excessive Sedation valproic acid AdvReac Intermediate Weight Gain Verified 10/29/22 18:40 morphine AdvReac Mild Itching Verified 10/29/22 18:40 Review of Systems Status of ROS: Reports: 10 or more systems reviewed and unremarkable except as noted in History and below [facility] Medical History Gout ?M10.9 - Gout, unspecified (ICD-10) Chronic back pain ?M54.9 - Dorsalgia, unspecified (ICD-10) ?G89.29 - Other chronic pain (ICD-10) Anxiety ?F41.9 - Anxiety disorder, unspecified (ICD-10) Primary hypertension ?I10 - Essential (primary) hypertension (ICD-10) Molly ?F30.9 - Manic episode, unspecified (ICD-10) Severe manic bipolar 1 disorder with psychotic behavior ?F31.2 - Bipolar disorder, current episode manic severe with psychotic features (ICD-10) Obesity, morbid, BMI 50 or higher ?E66.01 - Morbid (severe) obesity due to excess calories (ICD-10) Hip pain, left ?M25.552 - Pain in left hip (ICD-10) Internal hemorrhoid, bleeding ?K64.8 - Other hemorrhoids (ICD-10) PAC (premature atrial contraction) ?I49.1 - Atrial premature depolarization (ICD-10) Arthritis of left knee ?M17.12 - Unilateral primary osteoarthritis, left knee (ICD-10) Bipolar affective disorder, currently manic, mild ?F31.11 - Bipolar disorder, current episode manic without psychotic features, mild (ICD-10) Surgical History Status post total hip replacement, left ?Z96.642 - Presence of left artificial hip joint (ICD-10) History of tonsillectomy ?Z90.89 - Acquired absence of other organs (ICD-10) H/O arthroscopy of right knee ?Z98.890 - Other specified postprocedural states (ICD-10) H/O arthroscopy of left knee ?Z98.890 - Other specified postprocedural states (ICD-10) Hx laparoscopic cholecystectomy ?Z90.49 - Acquired absence of other specified parts of digestive tract (ICD-10) Social History Narrative: Has been living at a assisted in [place]. He is a lifelong nonsmoker, denies alcohol or recreational drug use. Wishes to be a full code. Highest level of school completed/degree received: high school graduate Smoking Status: Never smoker How often do you have a drink containing alcohol: never How often do you have six or more drinks on one occasion: Never AUDIT-C Alcohol total score: 0 Non-prescribed substance use: denies use Caffeine: No service: No Exam Narrative: Exam Narrative: Const: Well-nourished, Well-developed, in mild distress Eyes: PERRL, no conjunctival injection, and symmetrical lids HENT: Atraumatic external nose and ears. Moist mucous membranes. Neck: Symmetric, trachea midline, No thyromegaly. CVS: RRR, No murmurs or gallops. Peripheral pulses 2+ and equal in all extremities RESP: Unlabored respiratory effort. Clear to auscultation bilaterally. GI: Mild diffuse tenderness, Nondistended, No rebound or guarding. MSK:Extremities w/o deformity, Normal Active ROM Skin: Warm, Dry. No rashes or lesions. Mildly Red erythematous rash noted in the skin folds in his groin. No signs of satellite lesions. Neuro: Normal Muscle tone, No focal neurological deficits. Psych: Awake, Alert, & Oriented x3. Appropriate mood and affect. Const: Vital Signs, click to edit/add: Vital Signs - 24 hr 12/19/24 11:08 Temperature 98.7 F Pulse Rate [Pulse Oximeter] 90 Respiratory Rate 18 Blood Pressure [Ri ght Upper Arm] 144/83 H Pulse Oximetry 95 Oxygen Delivery Me thod Room Air Course Vital Signs Vital signs: Initial Vital Signs Temperature 98.7 F 12/19/24 11:08 Temperature Source Temporal Artery Scan 12/19/24 11:08 Pulse Rate 90 12/19/24 11:08 Respiratory Rate 18 12/19/24 11:08 Blood Pressure 144/83 H 12/19/24 11:08 Blood Pressure Mean 103 12/19/24 11:08 Blood Pressure Position Sitting 12/19/24 11:08 Pulse Oximetry 95 12/19/24 11:08 Oxygen Delivery Method Room Air 12/19/24 11:08 Vital Signs Temperature 98.7 F 12/19/24 11:08 Pulse Rate 90 12/19/24 11:08 Respiratory Rate 18 12/19/24 11:08 Blood Pressure 144/83 H 12/19/24 11:08 Pulse Oximetry 95 12/19/24 11:08 Oxygen Delivery Method Room Air 12/19/24 11:08 Temperature 98.7 F 12/19/24 11:08 Pulse Rate 90 12/19/24 11:08 Respiratory Rate 18 12/19/24 11:08 Blood Pressure 144/83 H 12/19/24 11:08 Pulse Oximetry 95 12/19/24 11:08 Oxygen Delivery Method Room Air 12/19/24 11:08 MDM - Nausea/Vomiting/Diarrhea MDM Narrative Medical decision making narrative: Patient is a 59-year-old male presenting for abdominal pain and diarrhea. Differential at this time includes diverticulitis, appendicitis, pancreatitis, gastroenteritis, colitis. SBO seems unlikely as he is having bowel movements. Will do a CT scan for better evaluation. Will order a CBC, CMP, viral swabs, lipase, urinalysis. Patient's lab work returned showing no acute concerning abnormalities. His sodium is mildly low but a not a concerning level. Urinalysis shows no signs of UTI. Viral swabs are negative. CT scan reviewed by myself and the radiologist foot no acute concerning abnormalities. Does have a pulmonary nodule that should have repeat imaging in 6-12 months based on risk factors. At this time patient is doing well and vital signs remained stable. I do believe he is safe for discharge. He is agreeable to this plan. Symptoms are likely related to a viral syndrome. He does have a rash in his growing. Does not clearly look like a fungal infection to me but has had previous fungal infection I will prescribe him a topical antifungal as this will also help as a barrier cream. Lab Data Labs: Lab Results 12/19/24 12/19/24 12/19/24 Range/Units 12:03 12:35 Unknown WBC 9.63 (4.50-11.00) K/uL RBC 4.60 (4.30-5.90) m/uL Hgb 13.9 (13.5-17.5) gm/dL Hct 41.0 (37.0-53.0) % MCV 89 (80-100) fL MCH 30 (26-34) pg MCHC 34 (32-36) gm/dL RDW Coeff of Mamadou 12.3 (11.5-15.5) % Plt Count 184 (140-440) K/uL Neut % (Auto) 85.8 H (42.0-72.0) % Lymph % (Auto) 7.3 L (20-44) % Banner % (Auto) 6.1 (0.0-11.0) % Eos % (Auto) 0.5 (0.0-7.0) % Baso % (Auto) 0.2 (0.0-3.0) % Neut # (Auto) 8.30 H (1.7-7.0) K/uL Lymph # (Auto) 0.70 L (0.90-2.90) K/uL Banner # (Auto) 0.60 (0.00-0.90) K/UL Eos # (Auto) 0.05 (0.00-0.50) K/uL Baso # (Auto) 0.02 (0.00-0.30) K/uL Abs Immat Gran (auto) 0.01 (0.00-0.30) K/uL Imm/Tot Granulo (auto) 0.1 % Sodium 129 L (135-149) mmol/L Potassium 4.1 (3.6-5.1) mmol/L Chloride 97 (96-114) mmol/L Carbon Dioxide 27 (20-32) mmol/L Anion Gap 5 L (7-15) mEq/L BUN 14 (7-30) mg/dL Creatinine 0.7 (0.5-1.5) mg/dL Estimated Creat Clear 108.86 Estimated GFR 107 ml/min Glucose 114 (60-115) mg/dL Calcium 8.8 (8.4-10.6) mg/dL Total Bilirubin 0.4 (0.1-1.5) mg/dL AST 31 (12-35) U/L ALT 17 (4-50) U/L Alkaline Phosphatase 72 (40-150) U/L Total Protein 7.1 (6.0-8.3) g/dL Albumin 4.2 (3.3-5.0) g/dL Lipase 66 (23-300) U/L Urine Color Yellow (Yellow) Urine Appearance Clear (Clear) Urine pH 7.0 (5.0-8.5) Ur Specific [place] 1.015 (1.000-1.030) Urine Protein Negative (Negative) Urine Glucose (UA) Negative (Negative) Urine Ketones Negative (Negative) Urine Blood Trace-intact A (Negative) Urine Nitrite Negative (Negative) Urine Bilirubin Negative (Negative) Urine Urobilinogen 0.2 (0.2-1.0) Ur Leukocyte Esterase Negative (Negative) Urine RBC 0-2 (0-2) Urine WBC 0-2 (0-5) Ur Squamous Epith Cells Few (None-Few) Urine Bacteria None (None) SARS-CoV-2 (PCR) Negative SARS-CoV-2 (Negative) Influenza Type A (PCR) Negative PCR FLU A (Negative) Influenza Type B (PCR) Negative PCR FLU B (Negative) RSV (PCR) Negative PCR RSV (Negative) POC Creatinine 0.8 (0.6-1.3) mg/dl Imaging Data CT scan abdomen and pelvis: Attestation: I have reviewed the pertinent imaging results. Radiologist's impression: 1. Exam slightly limited by photon starvation artifact from arms down position. Within this limitation, no acute findings are appreciated. 2. Left lower lobe solid pulmonary nodule measuring 6 mm. Depending on patient risk factors, follow-up chest CT can be considered in 6-12 months to assess stability 3. Endophytic right renal cystic lesion with borderline intermediate attenuation, although this is likely artifactual from patient positioning. Please note that all CT scans at this facility use dose modulation, iterative reconstruction, and/or weight-based dosing when appropriate to reduce radiation dose to as low as reasonably achievable. Dictated by Maria Eugenia Rubio MD @ 12/19/2024 1:37:33 PM Discharge Plan Discharge Clinical Impression: Abdominal pain, Rash Patient Disposition: Home, Self-Care Condition: Stable Instructions: Abdominal Pain (ED) Additional Instructions: Use the topical antifungal cream as directed. I recommend close follow-up with your primary care provider S CT scan does show there is a nodule in your left lower lobe. We see these very frequently in patients in the usually benign but depending on your risk factors a CT follow-up in 6-12 months may be recommended. A I do believe your symptoms are likely related to a virus. Please return to emergency department for new or worsening symptoms Prescriptions: New clotrimazole 1 % cream 1 applic topical BID 5 Days Qty: 15 0RF No Action sennosides-docusate sodium [Senokot-S] 8.6-50 mg tablet 1 tab-cap PO BID Patient Comments: 1-2 tabs by mouth 2 times a day carbamazepine 200 mg tablet 400 mg PO BID Patient Comments: TAKE 2 TABLETS BY MOUTH 2 TIMES DAILY. aripiprazole 15 mg tablet 15 mg PO DAILY Patient Comments: TAKE 1 TABLET BY MOUTH EVERY DAY IN THE MORNING buspirone 5 mg tablet 5 mg PO TID Patient Comments: TAKE 1 TABLET BY MOUTH THREE TIMES A DAY cholecalciferol (vitamin D3) 125 mcg (5,000 unit) capsule 125 mcg PO DAILY famotidine 20 mg tablet 20 mg PO Q12H Patient Comments: TAKE 1 TABLET (20 MG) BY MOUTH 2 TIMES DAILY. FOR ACID REFLUX. metoprolol tartrate 50 mg tablet 50 mg PO BID Patient Comments: TAKE 1 TABLET BY MOUTH TWICE A DAY multivitamin with iron-mineral Tablet 1 tab PO DAILY olanzapine 5 mg tablet,disintegrating 5 mg PO HS Patient Comments: TAKE 1 TABLET BY MOUTH EVERYDAY AT BEDTIME polyethylene glycol 3350 17 gram/dose powder 17 g PO DAILY Metamucil (with sugar) 3 gram/7 gram powder 1 tbsp PO DAILY tamsulosin 0.4 mg capsule 0.4 mg PO DAILY Patient Comments: TAKE 1 CAPSULE (0.4 MG) BY MOUTH ONCE DAILY AFTER A MEAL. FOR URINARY SYMPTOMS. ascorbic acid (vitamin C) 1,000 mg capsule 1 g PO DAILY sodium chloride 1,000 mg tablet,soluble 1,000 mg lisinopril 10 mg tablet 10 mg PO DAILY rosuvastatin 20 mg tablet 20 mg PO QPM sennosides-docusate sodium [2-in-1 Laxative] 8.6-50 mg tablet 1 tab-cap PO QHS aspirin [Adult Aspirin Regimen] 81 mg tablet,delayed release (DR/EC) 81 mg PO DAILY omeprazole 20 mg capsule,delayed release(DR/EC) 20 mg PO DAILY Follow Up/Referrals: Ignacio Mckeon MD [Primary Care Provider, Family Practice] Stand Alone Forms: [employer] Info Instructions
[2024-12-19 13:19] LABS: PCR FLU A Negative PCR FLU A (Negative); PCR FLU B Negative PCR FLU B (Negative); PCR RSV Negative PCR RSV (Negative); SARS PCR* Negative SARS-CoV-2 (Negative)
[2024-12-19 13:24] LABS: Hematocrit* 41.0 % (37.0-53.0); Hemoglobin* 13.9 gm/dL (13.5-17.5); Immature Granulocytes Abs Auto 0.01 K/uL (0.00-0.30); Immature Granulocytes Pct Auto 0.1 %; Lymphocytes Absolute Auto 0.70 K/uL (0.90-2.90); Mean Corpuscular HGB Conc 34 gm/dL (32-36); Mean Corpuscular Hemoglobin 30 pg (26-34); Mean Corpuscular Volume 89 fL (80-100); RDW Coefficient of Variation % 12.3 % (11.5-15.5); Red Blood Count* 4.60 m/uL (4.30-5.90); White Blood Count* 9.63 K/uL (4.50-11.00)
[2024-12-19 13:44] LABS: Slide Review Reflex No
== END 2024-12-19 14:30 | disposition home or self-care (01) ==
PROVIDERS: Emergency Provider Student in an Organized Health Care Education/Training Program; PCP Family Medicine
DX: R10.9 Unspecified abdominal pain (principal); R21 Rash and other nonspecific skin eruption
CPT/HCPCS: 36415; 74177; 80053; 81001; 82565; 83690; 85025; 87631; 99283; 99284; Q9967